=== PATIENT | male | born 1995 | race Two or more races ===

== ENCOUNTER 2019-12-28 03:47 | Emergency (ER) | payer MEDICAID, SELFPAY ==
[2019-12-28 03:56] VITALS: BP 131/71; PULSE 73; RESP 18; TEMP 36.9; O2SAT 98; BMI 28.7
--- NOTE | 2019-12-28 04:04 | ED_ITS ---
HPI - Psych General Chief Complaint: Psychiatric Symptoms <Blank Allen MD - Last Filed: 12/28/19 06:14> Stated Complaint: si <Blank Allen MD - Last Filed: 12/28/19 06:14> Time Seen by Provider: 12/28/19 03:48 <Blank Allen MD - Last Filed: 12/28/19 06:14> Source: patient <Blank Allen MD - Last Filed: 12/28/19 06:14> Mode of arrival: other (PD) <Blank Allen MD - Last Filed: 12/28/19 06:14> Limitations: no limitations <Blank Allen MD - Last Filed: 12/28/19 06:14> History of Present Illness HPI Narrative: This is a 24-year-old male who is brought in by EMS and polio completes department after he was found on a bridge and threatening to jump. Family was able to talk him down off a bridge into a car and patient stated that he was angry. He was recently evaluated at [facility] at approximately 9:30 p.m. on 12/27/2019 and on review of documentation adamantly was denying suicidal ideation at that time however was expressing that he was very stressed and feeling depressed. As per the documentation patient states that he started cutting for the 1st time 2 days ago along his bilateral forearms. Patient denies any drug use after being discharged from [facility]. <Blank Allen MD - Last Filed: 12/28/19 06:14> Related Data Allergies/Adverse Reactions: Allergies Allergy/AdvReac Type Severity Reaction Status Date / Time No Known Allergies Allergy Unverified 11/12/19 16:35 <Blank Allen MD - Last Filed: 12/28/19 06:14> Review of Systems Review of Systems: Yes all other systems are reviewed and are negative <Blakn Allen MD - Last Filed: 12/28/19 06:14> [facility] Social History Social History: Social History Advance Directives: No Advance Directives Information Provided: No <Blank Allen MD - Last Filed: 12/28/19 06:14> Physical Exam Vital Signs: Vital Signs: Vital Signs Temp Pulse Resp BP Pulse Ox 12/28/19 04:22 98.4 F 73 18 131/71 98 12/28/19 03:56 98.4 F 73 18 131/71 98 Body Mass Index 28.7 <Blank Allen MD - Last Filed: 12/28/19 06:14> Vital Signs: Vital Signs Temp Pulse Resp BP Pulse Ox 12/28/19 04:22 98.4 F 73 18 131/71 98 12/28/19 03:56 98.4 F 73 18 131/71 98 Body Mass Index 28.7 <Madhu Bright MD - Last Filed: 12/28/19 07:31> Vital Signs: Vital Signs Temp Pulse Resp BP Pulse Ox 12/28/19 04:22 98.4 F 73 18 131/71 98 12/28/19 03:56 98.4 F 73 18 131/71 98 Body Mass Index 28.7 <Tia Forrester NP - Last Filed: 12/28/19 10:10> VITAL SIGNS: Reviewed. GENERAL: Well developed, well nourished, in no acute distress. HEAD: Normocephalic/atraumatic, EYES: PERRLA, EOMI intact without pain, no nystagmus/pallor/icterus noted EARS: Ext canals without abnormality, TMs non-bulging and non-erythematous NOSE: Nares patent bilateral OROPHARYNX: no oral lesions noted, posterior pharynx clear and non-erythematous without noted tonsillar enlargement/erythema/exudates NECK: Supple, no adenopathy LUNGS: Normal breath sounds. No adventitious sounds or accessory muscle use. SpO2<98> CARDIOVASCULAR: Regular rate and rhythm without noted murmurs, no JVD or lower extremity edema. ABDOMEN: Soft, non-tender, non-distended with bowel sounds. No rigidity. No guarding. No palpable masses or hernias noted MUSCULOSKELETAL: No tenderness, deformities, or effusions noted on gross inspection. EXTREMITIES: No cyanosis, clubbing or edema, superficial lacerations to bilateral ventral forearms SKIN: Inspection of the skin reveals no rashes, ulcerations, jaundice, pallor, or petechiae. NEUROLOGIC: Alert and oriented x 4. Strength and sensation to light touch were grossly intact x 4. <Blank Allen MD - Last Filed: 12/28/19 06:14> Course Course Course Narrative: This is a 24-year-old male with history and clinical presentation consistent with progressively worsening depression and suicidal ideation. On arrival patient has been largely cooperative and has not required medical or physical restraints. On review of laboratory workup from [facility] it is unnecessary at this time to replicate these tests. Patient is otherwise medically cleared for further psychiatric evaluation. <Blank Allen MD - Last Filed: 12/28/19 06:14> patient is currently agitated ordered Haldol and ativan <Madhu Bright MD - Last Filed: 12/28/19 07:31> patient is pending a crisis evaluation. He had some agitation this morning but was able to be deescalated by nursing. Vital signs reviewed and stable. Will continue with plan of care. 1010-Seen by SWAT. Plan for dischrge home. No SI/HI. Calm and cooperative. R eviewed worrisome signs and symptoms and when to return to the emergency department. Comfortable discharge home. <Tia Forrester NP - Last Filed: 12/28/19 10:10> Reevaluation(s) Reevaluation #1: Formal Section 12 was filed here at the [facility] <Blank Allen MD - Last Filed: 12/28/19 06:14> Time: 04:30 <Blank Allen MD - Last Filed: 12/28/19 06:14> MDM - Psych Restraints Face to Face Assessment: Face to Face Assessment: Current Situation: After assessment of the patient, a review of the pertinent medical record and a discussion with nursing staff, I feel the patient requires a restrain intervention. Reaction To: [] Medical Condition: [] Behavioral State: [] Continued Need: [] <Blank Allen MD - Last Filed: 12/28/19 06:14> Discharge Plan Discharge Clinical Impression: Adjustment disorder <Blank Allen MD - Last Filed: 12/28/19 06:14> Patient Disposition: Home, Self-Care <Blank Allen MD - Last Filed: 12/28/19 06:14> Instructions: Stress (ED) <Blank Allen MD - Last Filed: 12/28/19 06:14> Referrals: Luann Luu NP [Primary Care Provider] - 2 days <Blank Allen MD - Last Filed: 12/28/19 06:14>
--- NOTE | 2019-12-28 04:16 | MHC.PIE ---
Addendum entered by Pancho Yee RN 12/28/19 04:31: E: Pt returned to phone to security at this time. Original Note: P: Refused to lock the cell phone in the locker. I:, RN, charged RN, and it security specialist talking to pt. Pt still refused to be uncooperative to care and policy. Will continue to monitor.
[2019-12-28 04:22] VITALS: BP 131/71; PULSE 73; RESP 18; TEMP 36.9; O2SAT 98
--- NOTE | 2019-12-28 04:24 | PC.NURSE ---
Pt uncooperative to care, and refused to talk to staff. will assess safety question when pt is cooperative.
--- NOTE | 2019-12-28 04:27 | PC.NURSE ---
Addendum entered by Pancho Yee RN 12/28/19 04:29: At [facility] ER, pt denies SI. Pt was at [facility] ER for PCP use and depression. Original Note: According to [facility] medical record, PATEL was negative. ETOH less than 3. Pt was discharged yesterday from [facility] ED for PCP use.
--- NOTE | 2019-12-28 04:59 | PC.NURSE ---
PT attempting to bench press weighted chair in his room. Stated that he needs to burn off steam . Chair was removed from his room for safety.
--- NOTE | 2019-12-28 06:02 | PC.NURSE ---
PT is talking on the phone with his fiance. Becoming agitated with conversation and raising his voice. PT easily redirectable at this time.
--- NOTE | 2019-12-28 07:25 | PC.NURSE ---
Report received from GERARD Kaufman- Pt agitated, angry, threatening to punch dixon. Pt declined medications as offered. MD notified of pt threats and agitation. Pt aware that he needs to remain in behavioral control, and that he needs to be evaluated by N. Security in, MD in. Pt currently in room, eating breakfast.
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
--- NOTE | 2019-12-28 08:53 | PC.NURSE ---
Care team in w pt
--- NOTE | 2019-12-28 11:05 | PC.NURSE ---
Pt given discharge instructions, then appeared ambivalent about being discharged, appearing sad, and uncertain. Pt stated he wanted to make sure that he would be able to receive medical marijuana card from PCP. Care team called- notified re: ambivalence, and medical card. In to evaluate. Pt stated that he was not suicidal at this time, but continued to state that he couldnt guarantee the future. pt asked if he wanted to stay, stated that 'this place just makes me worse.' Pt again stated that he was not suicidal today. Spoke to mother on telephone, discharged as ordered.
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
--- NOTE | 2019-12-28 13:39 | MHC.CARE ---
Called received from Pts fiscal officer. commercial loan officer updated he was discharged home from ED.
--- NOTE | 2020-01-12 02:07 | ED_ITS ---
HPI - Psych General Chief Complaint: Psychiatric Symptoms <Blank Allen MD - Last Filed: 01/12/20 02:18> Stated Complaint: si <Blank Allen MD - Last Filed: 01/12/20 02:18> Time Seen by Provider: 12/28/19 03:48 <Blank Allen MD - Last Filed: 01/12/20 02:18> Source: patient and EMS <Blank Allen MD - Last Filed: 01/12/20 02:18> Mode of arrival: EMS <Blank Allen MD - Last Filed: 01/12/20 02:18> History of Present Illness HPI Narrative: This is a 24-year-old male who is brought in by EMS and police who reports that he was found on a bridge and threatening to jump. Family was able to talk him down off of the bridge and into a car in patient stated that he was angry. He was recently evaluated at [facility] at approximately 9:30 p.m. on 12/27/2019 and on review of documentation adamantly was denying suicidal ideation at that time, however he was expressing that he was very stressed and feeling depressed. As per the documentation patient states that he started cutting for the 1st time 2 days ago along his bilateral forearms. Patient denies any drug use after being discharged from [facility]. <Blank Allen MD - Last Filed: 01/12/20 02:18> Related Data Allergies/Adverse Reactions: Allergies Allergy/AdvReac Type Severity Reaction Status Date / Time No Known Allergies Allergy Unverified 11/12/19 16:35 <Blank Allen MD - Last Filed: 01/12/20 02:18> Review of Systems Review of Systems: Pertinent positives and negatives as stated in HPI 10 point review of systems is otherwise negative. <Blank Allen MD - Last Filed: 01/12/20 02:18> PMFSH Past Medical History Source: nursing notes reviewed <Blank Allen MD - Last Filed: 01/12/20 02:18> Social History Social History: Social History Advance Directives: No Advance Directives Information Provided: No <Blank Allen MD - Last Filed: 01/12/20 02:18> Physical Exam Vital Signs: Vital Signs: Last Vital Signs Temp 98.4 F 12/28/19 04:22 Pulse 73 12/28/19 04:22 Resp 18 12/28/19 04:22 BP 131/71 12/28/19 04:22 Pulse Ox 98 12/28/19 04:22 Body Mass Index 28.7 <Blank Allen MD - Last Filed: 01/12/20 02:18> Vital Signs: Last Vital Signs Temp 98.4 F 12/28/19 04:22 Pulse 73 12/28/19 04:22 Resp 18 12/28/19 04:22 BP 131/71 12/28/19 04:22 Pulse Ox 98 12/28/19 04:22 Body Mass Index 28.7 <Tia Forrester NP - Last Filed: 01/15/20 09:32> VITAL SIGNS: Reviewed. GENERAL: Well developed, well nourished, in no acute distress. HEAD: Normocephalic/atraumatic, EYES: PERRLA, EOMI intact without pain, no nystagmus/pallor/icterus noted EARS: Ext canals without abnormality, TMs non-bulging and non-erythematous NOSE: Nares patent bilateral OROPHARYNX: no oral lesions noted, posterior pharynx clear and non-erythematous without noted tonsillar enlargement/erythema/exudates NECK: Supple, no adenopathy LUNGS: Normal breath sounds. No adventitious sounds or accessory muscle use. SpO2<98> CARDIOVASCULAR: Regular rate and rhythm without noted murmurs, no JVD or lower extremity edema. ABDOMEN: Soft, non-tender, non-distended with bowel sounds. No rigidity. No guarding. No palpable masses or hernias noted MUSCULOSKELETAL: No tenderness, deformities, or effusions noted on gross inspection. EXTREMITIES: No cyanosis, clubbing or edema. SKIN: Inspection of the skin reveals no rashes, ulcerations, jaundice, pallor, or petechiae. NEUROLOGIC: Alert and oriented x 4. Strength and sensation to light touch were grossly intact x 4. <Blank Allen MD - Last Filed: 01/12/20 02:18> Course Course Course Narrative: This is a 24-year-old male with history and clinical presentation consistent with progressively worsening depression and suicidal ideation. On arrival patient has been largely cooperative and has not required medical or physical restraints. On review of laboratory workup from [facility] it is unnecessary at this time to replicate these tests as they are within normal limits. <Blank Allen MD - Last Filed: 01/12/20 02:18> This is an addendum-see previous provider HPI and PE. Patient was seen by SWAT in the morning and plan for disposition home. I went to re-evaluate the patient and he was calm, cooperative. No SI/HI. <Tia Forrester NP - Last Filed: 01/15/20 09:32> Reevaluation(s) Reevaluation #1: Formal Section 12 was filed here at [facility]. <Blank Allen MD - Last Filed: 01/12/20 02:18> Time: 04:30 <Blank Allen MD - Last Filed: 01/12/20 02:18> Reevaluation #2: Patient signed out to Dr Bright. <Blank Allen MD - Last Filed: 01/12/20 02:18> Time: 07:00 <Blank Allen MD - Last Filed: 01/12/20 02:18> MDM - Psych Restraints Face to Face Assessment: Face to Face Assessment: Current Situation: After assessment of the patient, a review of the pertinent medical record and a discussion with nursing staff, I feel the patient requires a restrain intervention. Reaction To: [] Medical Condition: [] Behavioral State: [] Continued Need: [] <Blank Allen MD - Last Filed: 01/12/20 02:18> Discharge Plan Discharge Clinical Impression: Adjustment disorder <Blank Allen MD - Last Filed: 01/12/20 02:18> Patient Disposition: Home, Self-Care <Blank Allen MD - Last Filed: 01/12/20 02:18> Instructions: Stress (ED) <Blank Allen MD - Last Filed: 01/12/20 02:18> Referrals: Luann Luu NP [Primary Care Provider] - 2 days <Blank Allen MD - Last Filed: 01/12/20 02:18> Interventions: ED Discharge Assessment Last Done: 12/28/19 10:16 <Blank Allen MD - Last Filed: 01/12/20 02:18> Discharge Date/Time: 12/28/19 11:18 <Blank Allen MD - Last Filed: 01/12/20 02:18>
== END 2019-12-28 11:18 | disposition home or self-care (01) ==
PROVIDERS: Emergency Provider Student in an Organized Health Care Education/Training Program; PCP Nurse Practitioner Family
DX: F33.1 Major depressive disorder, recurrent, moderate (principal); R45.851 Suicidal ideations
CPT/HCPCS: 96372; 99284; 99285; J1200; J2060

== ENCOUNTER 2020-08-22 23:40 | Emergency (ER) | payer MEDICAID, SELFPAY ==
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
[2020-08-23 00:40] VITALS: BP 140/80; PULSE 85; RESP 18; TEMP 36.7; O2SAT 100; BMI 30.1
[2020-08-23 01:48] LABS: Basophils Absolute Auto 0.1 X10*3/uL (0.0-0.2); Basophils Percent Auto 0.3 % (0-2); Hematocrit 44.6 % (42-52); Imm Gran Abs Auto 0.12 X10*3/uL (0.00-0.03); Imm Gran Pct Auto 0.6 % (0.0-0.4); Lymphocytes Absolute Auto 1.7 X10*3/uL (1.2-4.9); Lymphocytes Percent Auto 8.9 % (20-40); MANUAL DIFF FLAG SCAN; Mean Corpuscular HGB Conc 33.6 g/dl (31.0-36.0); Mean Corpuscular Hemoglobin 30.7 pg (27.0-33.0); Mean Corpuscular Volume 91.4 fL (80-98); Mean Platelet Volume 11.3 fL (9.4-12.4); Monocytes Absolute Auto 1.6 X10*3/uL (0.1-1.2); Monocytes Percent Auto 8.6 % (2-11); Neutrophils Absolute Auto 15.1 X10*3/uL (2.0-8.3); Neutrophils Percent Auto 81.6 % (45-73); Platelet Count 212 X10*3/uL (160-400); Red Blood Count 4.88 X10*6/uL (4.60-5.80); Red Cell Distribution Width 12.6 % (11.0-16.0); SCAN SMEAR FLAG 1; White Blood Count 18.6 X10*3/uL (4.8-10.8)
[2020-08-23 02:05] LABS: Ethanol < 10 mg/dL
[2020-08-23] MEDS: HYDROmorphone HCl 0.5 MG/0.5 ML SYRINGE IVPUSH (02:05)
[2020-08-23] MEDS: 0.9 % Sodium Chloride 500 ML 999 ML IV (02:07)
[2020-08-23 02:08] LABS: Alanine Aminotransferase 25 U/L (0-40); Albumin Level 4.5 g/dL (3.5-5.0); Alkaline Phosphatase 73 U/L (39-117); Anion Gap 15 (12-20); Aspartate Amino Transferase 32 U/L (5-37); Bilirubin Direct < 0.2 mg/dL (0.0-0.5); Bilirubin Total 0.2 mg/dL (0.0-1.0); Blood Urea Nitrogen 14 mg/dL (9-16); Calcium 9.7 mg/dL (8.4-10.2); Carbon Dioxide 26 mmol/L (22-29); Chloride 106 mmol/L (96-108); Creatinine Clr Calc Pharmacy 127.6; Estimated Glomerular Filt Rate > 60; Glucose Random 95 mg/dL (60-115); Potassium 4.6 mmol/L (3.3-5.1); Sodium 142 mmol/L (135-145); Total Protein 7.7 g/dL (6.5-8.0)
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
[2020-08-23] MEDS: iohexoL 350 MG/ML 100 ML INFUS..BTL 85 ML IV (02:14)
[2020-08-23 03:12] LABS: SLIDE REVIEW VERIFIED
[2020-08-23 03:16] VITALS: BP 132/61; PULSE 76; RESP 18; O2SAT 100
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
[2020-08-23] MEDS: Cyclobenzaprine HCl 10 MG TABLET PO (04:03)
[2020-08-23] MEDS: oxyCODONE HCl Immed Release 5 MG TABLET PO (04:03)
== END 2020-08-23 04:25 | disposition home or self-care (01) ==
PROVIDERS: Emergency Provider Emergency Medicine Emergency Medical Services
DX: S20.219A Contusion of unspecified front wall of thorax, initial encounter (principal); S09.90XA Unspecified injury of head, initial encounter; S30.810A Abrasion of lower back and pelvis, initial encounter; S20.419A Abrasion of unspecified back wall of thorax, initial encounter; S80.212A Abrasion, left knee, initial encounter; S80.211A Abrasion, right knee, initial encounter; V28.4XXA Motorcycle driver injured in noncollision transport accident in traffic accident, initial encounter; Y93.89 Activity, other specified; Y92.9 Unspecified place or not applicable; Y99.9 Unspecified external cause status
CPT/HCPCS: 36415; 70450; 71260; 72125; 73060; 73562; 74177; 80048; 80076; 82077; 85025; 96361; 96374; 99284; 99285; J1170; Q9967

== ENCOUNTER 2020-10-28 02:45 | Emergency (ER) | payer MEDICAID, SELFPAY ==
[2020-10-28 03:00] VITALS: BP 135/85; PULSE 106; RESP 18; TEMP 36.9; O2SAT 97; BMI 28.5
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
[2020-10-28 03:49] LABS: Ethanol < 10 mg/dL
--- NOTE | 2020-10-28 04:52 | PC.NURSE ---
PT REQUESTING TO BE D/C, SPOKE W/THIS RN & MD. PT AMBULATES INDEPENDENTLY, WALKS W/STEADY GAIT. PER MD PT IS APPROPRIATE FOR D/C AT THIS TIME
== END 2020-10-28 05:21 | disposition home or self-care (01) ==
PROVIDERS: Emergency Provider Emergency Medicine
DX: F10.129 Alcohol abuse with intoxication, unspecified (principal); Y90.0 Blood alcohol level of less than 20 mg/100 ml; F17.200 Nicotine dependence, unspecified, uncomplicated; Z71.6 Tobacco abuse counseling; Z79.899 Other long term (current) drug therapy
CPT/HCPCS: 36415; 82077; 99283

== ENCOUNTER 2021-06-18 02:30 | Emergency (ER) | payer MEDICAID, SELFPAY ==
[2021-06-18 02:39] VITALS: BMI 27.3
[2021-06-18 02:51] VITALS: BP 147/86; PULSE 75; RESP 17; TEMP 37; O2SAT 98
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
[2021-06-18 03:25] LABS: COVID-19 Test Negative (Negative)
[2021-06-18 05:43] LABS: Amphetamine Screen Urine Not Detected (Not Detect); Barbiturates, Urine Not Detected (Not Detect); Benzodiazepines Screen Urine Not Detected (Not Detect); Cannabinoid Screen Urine Not Detected (Not Detect); Cocaine Screen Urine Not Detected (Not Detect); Fentanyl, urine Not Detected (Not Detect); Opiate Screen Urine Not Detected (Not Detect); Phencyclidine Screen Urine POSITIVE (Not Detect)
--- NOTE | 2021-06-18 06:17 | MHC.MBSS ---
Patient stayed awake whole night, patient is now alert and oriented x 4, coherent, behavior appropriate, denied SI/HI/AVH, awaiting to see population health coach, will continue to monitor.
--- NOTE | 2021-06-18 07:37 | PC.NURSE ---
patient appears to remain asleep at present respirations are even and unlabored patient appears in no distress
--- NOTE | 2021-06-18 09:15 | MHC.RECOVSUP ---
Recovery Support note: Patient is a 26 year old [place] speaking male who [place] [facility] using PCP and going to his mother's house. This engineering technical writer met with patient to discuss substance use and recovery supports. Patient reports PCP use but states he is not interested in talking about it and that he wants to go home. Patient reports he feels safe to discharge and that he will take some resources to look over later. Discussed case with ED provider. Resources given to RN to provide patient upon discharge.
== END 2021-06-18 10:02 | disposition home or self-care (01) ==
PROVIDERS: Emergency Provider Emergency Medicine Emergency Medical Services
DX: F19.19 Other psychoactive substance abuse with unspecified psychoactive substance-induced disorder (principal); F17.200 Nicotine dependence, unspecified, uncomplicated; Z20.822 Contact with and (suspected) exposure to COVID-19; Z71.6 Tobacco abuse counseling; Z79.899 Other long term (current) drug therapy
CPT/HCPCS: 80307; 87635; 99284

== ENCOUNTER 2022-07-06 04:03 | Emergency (ER) | payer MEDICAID, SELFPAY ==
[2022-07-06 04:04] VITALS: BP 137/62; PULSE 97; RESP 18; TEMP 36.6; O2SAT 98; BMI 25.1
--- NOTE | 2022-07-06 04:17 | ED_ITS ---
HPI - Ear Problem General Chief complaint: Ear Problems Stated complaint: Right ear pain was bleeding Time Seen by Provider: 07/06/22 04:12 Source: patient Mode of arrival: ambulatory Limitations: no limitations History of Present Illness HPI Narrative: Patient comes to the emergency room complaining of right-sided ear pain for approximately 5 days. Patient states that 5-6 days ago he was cleaning his ears with Q-tips, scratch his ear canal, tried rinsing it out with hydrogen peroxide. No throat pain Related Data Previous Rx's Medication Instructions Recorded cyclobenzaprine 10 mg tablet 10 mg PO TID PRN pain #14 tabs 08/23/20 ibuprofen 400 mg tablet 400 mg PO Q6H PRN pain #20 tabs 08/23/20 amoxicillin 500 mg-potassium 1 tab PO BID #19 tabs 07/06/22 clavulanate 125 mg tablet (Augmentin) ketorolac 10 mg tablet 10 mg PO TID PRN pain #7 tabs 07/06/22 Allergies Allergy/AdvReac Type Severity Reaction Status Date / Time No Known Allergies Allergy Unverified 11/12/19 16:35 Review of Systems Review of Systems: Constitutional : No Weight loss, No Fever, No Chills, No Night Sweats, No Fatigue, No Malaise ENT/Mouth : No Hearing loss, complaining of right-sided Ear Pain, No Nasal Congestion, No Sinus Pain, No Hoarseness, No sore throat, No Rhinorrhea, No Swallowing Difficulty Eyes: No Eye Pain, No Swelling, No Redness, No Foreign Body, No Discharge, No Vision Changes Cardiovascular : No Chest Pain, No SOB, No Dyspnea on Exertion, No Orthopnea, No Edema, No Palpitations Respiratory : No Cough, No Sputum, No Wheezing, No Smoke Exposure, No Dyspnea Gastrointestinal : No Nausea, No Vomiting, No Diarrhea, No Constipation, No abdominal Pain, No Hematochezia, No Melena Genitourinary : no irregular bleeding, No Dysuria, No Urinary Frequency, No Hematuria, No Urinary Incontinence, No Urgency, No Flank Pain, No Urinary Flow Changes, No Hesitancy Musculoskeletal : No joint pain, No Myalgias, No Joint Swelling Skin : No Skin Lesions, No rash Neuro : No Weakness, No Numbness, No Paresthesias, No Loss of Consciousness, No Dizziness, No Headache Psych : No Anxiety/Panic, No Depression, No SI/HI/AH/VH, No Social Issues, Heme/Lymph: No Bruising, No Bleeding,No Lymphadenopathy Endocrine : No Polyuria, No Polydipsia, No Temperature Intolerance [facility] Past Medical History Medical History No known health problems Social History Social History Alcohol intake: current Alcohol intake frequency: holidays/special occasions only Patient Tobacco Use Status: Current everyday Tobacco user Substance Use Type: Marijuana Physical Exam Vital Signs: Vital Signs: Last Vital Signs Temp 97.8 F 07/06/22 04:04 Pulse 97 07/06/22 04:04 Resp 18 07/06/22 04:04 BP 137/62 07/06/22 04:04 Pulse Ox 98 07/06/22 04:04 O2 Del Method Room Air 07/06/22 04:04 BMI result Body Mass Index 25.1 Const: Other: Appearance: Alert. Oriented X3. No acute distress. Eyes: Pupils equal, round and reactive to light. ENT: Pharynx normal. There are scratches in the ear canal on the left, scant blood from the scratches, tympanic membrane within normal limits. Right ear canal is erythematous, swollen, no blood. Both tympanic membranes within normal limits. No pain in the mastoid bones bilaterally Neck: Normal inspection. Neck supple. No lymph nodes noted. No crepitus CVS: Normal heart rate and rhythm. Pulses normal. Normal S1 and S2 Respiratory: No respiratory distress. Breath sounds normal. No Wheezing. No rales Abdomen: Soft and nontender. No rigidity. No distention. Skin: Skin warm and dry. Normal skin color. Normal skin turgor. Extremities: No lower extremity edema. No Lacerations. No Rash Neuro: Oriented X 3. No motor deficit. No sensory deficit. Moving all extremities. No slurred speech. CN 2 through 12 grossly intact Psych: calm, cooperative, normal affect Medical Decision Making Medical Decision Making MDM Narrative: -patient has otitis media of the right ear. -discussed with the patient not to put anything in his ear, not to resume with peroxide. -patient was given the 1st dose of Augmentin in the emergency room and an injection of ketorolac for pain Discharge Plan Discharge Clinical Impression: Otitis media Patient Disposition: Home, Self-Care Instructions: Ear Infection (ED) Additional Instructions: Please to not put anything inside your ears, do not try to rinse them out. Only take your antibiotics Please follow-up with your primary care physician tomorrow. If you have any worsening or new symptoms, please return to the emergency room or call 911 Prescriptions: New amoxicillin-pot clavulanate [Augmentin] 500-125 mg tablet 1 tab PO BID Qty: 19 0RF ketorolac 10 mg tablet 10 mg PO TID PRN (Reason: pain) Qty: 7 0RF No Action ibuprofen 400 mg tablet 400 mg PO Q6H PRN (Reason: pain) Qty: 20 0RF cyclobenzaprine 10 mg tablet 10 mg PO TID PRN (Reason: pain) Qty: 14 0RF
--- NOTE | 2022-07-06 04:29 | PC.NURSE ---
pt c/o R ear pain, redness and swelling visible 10/10 pain and tenderness to external ear pt's girlfriend at bedside aox4 no apparent distress
[2022-07-06] MEDS: Ketorolac Tromethamine 60 MG/2 ML VIAL IM (04:30)
[2022-07-06] MEDS: Amoxicillin/Potassium Clav 875 MG TABLET PO (04:30)
[2022-07-06 04:32] VITALS: BP 115/72; PULSE 66; RESP 13; TEMP 36.7; O2SAT 99
--- NOTE | 2022-07-06 04:41 | PC.NURSE ---
discharge instructions given and explained to pt no apparent distress ambulates safely/independently
== END 2022-07-06 04:40 | disposition home or self-care (01) ==
PROVIDERS: Emergency Provider Emergency Medicine
DX: H66.91 Otitis media, unspecified, right ear (principal); H92.01 Otalgia, right ear
CPT/HCPCS: 96372; 99284; J1885

== ENCOUNTER 2022-12-14 23:34 | Emergency (ER) | payer MEDICAID, SELFPAY ==
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
[2022-12-15 00:13] VITALS: BP 118/78; PULSE 99; O2SAT 98; BMI 28.6
[2022-12-15 00:43] VITALS: BP 154/52; PULSE 71; RESP 16; O2SAT 98
[2022-12-15] MEDS: Acetaminophen 325 MG TABLET 975 MG PO (01:27)
== END 2022-12-15 05:13 | disposition left against medical advice (07) ==
PROVIDERS: Emergency Provider Emergency Medicine
DX: Z04.1 Encounter for examination and observation following transport accident (principal); M25.562 Pain in left knee; R06.02 Shortness of breath
CPT/HCPCS: 73564; 99283; 99284

== ENCOUNTER 2023-01-30 12:51 | Emergency (ER) | payer MEDICAID, SELFPAY ==
[2023-01-30 13:02] VITALS: BP 131/84; BP 136/94; PULSE 71; PULSE 74; RESP 16; TEMP 36.6; O2SAT 96; O2SAT 99; BMI 23.4
--- NOTE | 2023-01-30 13:06 | PC.NURSE ---
Pt reports he has no complaints, states he doesnt need to be here. This RN explained that he needs to be checked out first by MD. Pt agreeable to this plan. Pt is alert and oriented, verbalizes understanding that he is in the hospital, knows the date and his birthday. Pt is resting on stretcher, respirations even and unlabored, occasionally looking around appearing to be disoriented but is easily redirectablle
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
== END 2023-01-30 13:43 | disposition home or self-care (01) ==
PROVIDERS: Emergency Provider Emergency Medicine Emergency Medical Services
DX: F12.90 Cannabis use, unspecified, uncomplicated (principal); F17.200 Nicotine dependence, unspecified, uncomplicated; Z79.899 Other long term (current) drug therapy
CPT/HCPCS: 99282; 99284

== ENCOUNTER 2023-03-17 11:21 | Emergency (ER) | payer MEDICAID, SELFPAY ==
--- NOTE | 2023-03-17 11:31 | ED.DENTAL ---
HPI - Dental/Oral General Chief complaint: Dental/Oral Stated complaint: Mouth pain - wisdom teeth removed Time Seen by Provider: 03/17/23 11:37 Source: patient Mode of arrival: ambulatory Limitations: no limitations History of Present Illness HPI Narrative: Patient is a 28-year-old male who presents emergency department for evaluation of right lower molar pain x 2-3 days. Has trialed pain gel but only relieve pain for 30 minutes. Pain does not radiate. Dneies fevers, chills, nausea, vomiting. Reports having upper wisdom teeth removed approximately 2-3 years ago and was advised that he needed the lower ones removed, however they were not, reason unknown. Teeth map: 1. erythematous gingiva and swelling Related Data Previous Rx's Medication Instructions Recorded cyclobenzaprine 10 mg tablet 10 mg PO TID PRN pain #14 tabs 08/23/20 ibuprofen 400 mg tablet 400 mg PO Q6H PRN pain #20 tabs 08/23/20 amoxicillin 500 mg-potassium 1 tab PO BID #19 tabs 07/06/22 clavulanate 125 mg tablet (Augmentin) ketorolac 10 mg tablet 10 mg PO TID PRN pain #7 tabs 07/06/22 amoxicillin 875 mg-potassium 1 tab PO BID #14 tabs 03/17/23 clavulanate 125 mg tablet chlorhexidine gluconate 0.12 % 15 ml buccal BID #473 mL 03/17/23 mouthwash ibuprofen 600 mg tablet 600 mg PO Q8H PRN pain #30 tabs 03/17/23 Allergies Allergy/AdvReac Type Severity Reaction Status Date / Time No Known Allergies Allergy Unverified 11/12/19 16:35 Review of Systems Review of Systems: Yes all other systems are reviewed and are negative PMFSH Past Medical History Attestation statement: The following information was validated with the patient. Source: old records reviewed Onset Date is defined in the Problem List Problems that require an onset date and time if occurred within 24 hrs of arrival to the ED Aortic Dissection and Rupture; Neurologic impairment; Cardiopulmonary Arrest; Endotracheal Intubation; Insertion or Replacement of Mechanical Circulatory Assist Device Medical History No known health problems Social History Social History Alcohol intake: current Alcohol intake frequency: holidays/special occasions only Patient Tobacco Use Status: Current everyday Tobacco user Substance Use Type: Marijuana Physical Exam Vital Signs: Appearance: Alert. Oriented X3. No acute distress. Head: Normal external exam. Normocephalic. Atraumatic. Eyes: PERRLA. EOMI. Conjunctiva and sclera normal. Eyelids normal. ENT: EAC normal. TM's Normal. Pharynx normal. Uvula midline. Moist mucous membranes.? ?No trismus noted.? No drooling noted.? No muffled voice noted. Dentition:? Patient with poor dentition throughout with multiple old fractured teeth with multiple dental caries.? Gingival erythema of the right lower..? No fluctuance.? Not consistent with peritonsillar abscess. Not consistent with dental abscess.? No salivary duct obstruction noted. Neck: Normal inspection. Neck supple. FROM. No adenopathy. Thyroid Normal. No meningeal signs. No neck mass noted.? Trachea midline. CVS: Normal heart rate and rhythm. Heart sound normal. No murmurs noted. Pulses normal throughout. Respiratory: No respiratory distress. Painless inspiration. Breath sounds normal. No wheezes/rales/rhonchi noted. Chest nontender. ?No accessory muscle usage noted or decreased air movement noted. Back:? Full range of motion noted. Skin: Skin warm and dry.? Normal skin color.? Normal skin turgor. No rashes/lesions/lacerations noted. Extremities: Extremities exhibit normal range of motion.? Extremities nontender. Neuro: Oriented X 3.? No motor deficit.? No sensory deficit.? Reflexes normal. Course Course Course Narrative: This is an RME: Additional HPI, ROS, PE not included below will be deferred to primary provider. Patient is a 28-year-old male who presents emergency department for evaluation of right lower molar pain x 2-3 days. Has trialed pain gel but only relieve pain for 30 minutes. Pain does not radiate. Dneies fevers, chills, nausea, vomiting. Reports having upper wisdom teeth removed approximately 2-3 years ago and was advised that he needed the lower ones removed, however they were not, reason unknown. Medical Decision Making Medical Decision Making MDM Narrative: Patient is a 28-year-old male who presents emergency department for evaluation of dental pain as per HPI. He does have some localized erythema and swelling with no areas of fluctuance to suggest an abscess. No evidence of peritonsillar retropharyngeal abscess. Pain is nonradiating, he is nontoxic in appearance. Does not appear consistent with Fox's angina. Patient was advised will send prescription for Augmentin to cover dental infection in addition to ibuprofen and chlorhexidine mouthwash, he will ultimately require evaluation from a dental provider, he was advised to contact local dentist in addition to [facility] dental clinic tomorrow so that he may obtain follow-up care. Discussed worrisome signs and symptoms that would warrant re-evaluation in the emergency department. All questions answered. Stable for discharge. Differential Diagnosis Differential Diagnoses: The differential diagnosis associated with the presentation includes (As noted above) Admission/Observation Consideration of admission/observation: Escalation of care including admission/observation considered (As noted above) Tests considered The following testing was considered but not selected: CT deferred, low suspicion for abscess Prescription Management I considered prescription management with: Pain Medication and Antibiotic Discharge Plan Discharge Clinical Impression: Dental infection Patient Disposition: Home, Self-Care Additional Instructions: You can take ibuprofen 200 mg, 3 tablets (600mg) every 6-8 hours as needed for pain, in addition to Tylenol 500 mg, 2 tablets (1,000mg) every 4-6 hours as needed for pain, but not to exceed 3 doses daily (3,000mg).? Complete the entire course of antibiotics as prescribed. Use the mouthwash as instructed twice a day. You will need to have follow-up care with a dentist, you may consider seeking care at [facility] where they have dental services. I recommend that you begin contacting dental providers tomorrow. Prescriptions: New chlorhexidine gluconate 0.12 % mouthwash 15 ml buccal BID Qty: 473 0RF ibuprofen 600 mg tablet 600 mg PO Q8H PRN (Reason: pain) Qty: 30 0RF amoxicillin-pot clavulanate 875-125 mg tablet 1 tab PO BID Qty: 14 0RF No Action ibuprofen 400 mg tablet 400 mg PO Q6H PRN (Reason: pain) Qty: 20 0RF cyclobenzaprine 10 mg tablet 10 mg PO TID PRN (Reason: pain) Qty: 14 0RF amoxicillin-pot clavulanate [Augmentin] 500-125 mg tablet 1 tab PO BID Qty: 19 0RF ketorolac 10 mg tablet 10 mg PO TID PRN (Reason: pain) Qty: 7 0RF Referrals: Physician,Unknown J [Primary Care Provider] -
[2023-03-17 11:32] VITALS: BP 135/88; PULSE 78; RESP 18; TEMP 36.4; O2SAT 98; BMI 28.3
== END 2023-03-17 12:10 | disposition home or self-care (01) ==
LOC: HO.ED 12:01
PROVIDERS: Emergency Provider Emergency Medicine
DX: K04.7 Periapical abscess without sinus (principal)
CPT/HCPCS: 99282; 99283

== ENCOUNTER 2023-11-20 17:53 | Emergency (ER) | payer MEDICAID, SELFPAY ==
--- NOTE | ~2023-11-20 | XR_ITS ---
EXAMINATION: XR SHOULDER, LEFT CLINICAL INFORMATION: Pain, old injury COMPARISON: None available. TECHNIQUE: AP external rotation, Grashey, scapular Y, and axillary views of the left shoulder. FINDINGS: The bones and soft tissues are normal. No fracture. Glenohumeral and acromioclavicular alignment is anatomic with normal joint space. No abnormal soft tissue calcifications. XR/XR shoulder LT min 2V IMPRESSION: Normal left shoulder. Electronically signed by: Dell Jaimes DO 11/20/2023 10:01 PM EDT
--- NOTE | ~2023-11-20 | XR_ITS ---
EXAMINATION: XR SHOULDER, RIGHT CLINICAL INFORMATION: Pain, old injury COMPARISON: None available. TECHNIQUE: AP external rotation, Grashey, scapular Y, and axillary views of the right shoulder. FINDINGS: The bones and soft tissues are normal. No fracture. Glenohumeral and acromioclavicular alignment is anatomic with normal joint space. No abnormal soft tissue calcifications. XR/XR shoulder RT min 2V IMPRESSION: Normal right shoulder. Electronically signed by: Dell Jaimes DO 11/20/2023 10:03 PM EDT
--- NOTE | ~2023-11-20 | XR_ITS ---
EXAMINATION: XR KNEE, RIGHT CLINICAL INFORMATION: Pain for 5 months COMPARISON: None available. TECHNIQUE: Four views of the right knee. FINDINGS: No fracture or joint effusion. Alignment is anatomic. Joint spaces are maintained. No abnormal soft tissue calcification. XR/XR knee RT 4V IMPRESSION: Normal right knee. Electronically signed by: Dell Jaimes DO 11/20/2023 10:04 PM EDT
--- NOTE | 2023-11-20 18:38 | ED_ITS ---
HPI - Fall General Stated Complaint: ?RT knee meniscal tear Related Data Previous Rx's ?Medication ?Instructions ?Recorded cyclobenzaprine 10 mg tablet 10 mg PO TID PRN pain #14 tabs 08/23/20 ibuprofen 400 mg tablet 400 mg PO Q6H PRN pain #20 tabs 08/23/20 amoxicillin 500 mg-potassium 1 tab PO BID #19 tabs 07/06/22 clavulanate 125 mg tablet (Augmentin) ketorolac 10 mg tablet 10 mg PO TID PRN pain #7 tabs 07/06/22 amoxicillin 875 mg-potassium 1 tab PO BID #14 tabs 03/17/23 clavulanate 125 mg tablet chlorhexidine gluconate 0.12 % 15 ml buccal BID #473 mL 03/17/23 mouthwash ibuprofen 600 mg tablet 600 mg PO Q8H PRN pain #30 tabs 03/17/23 Allergies Allergy/AdvReac Type Severity Reaction Status Date / Time No Known Allergies Allergy Unverified 11/12/19 16:35 PMFSH Past Medical History Medical History No known health problems Social History Social History Alcohol intake: current Alcohol intake frequency: holidays/special occasions only Patient Tobacco Use Status: Current everyday Tobacco user Substance Use Type: Marijuana Course Course Course Narrative: This is a Rapid Medical Exam performed in triage by Mayi Pearce PA-C. Full HPI, ROS and PE to be performed by primary ED provider. 28 yo M presenting to the ED c/o PE: Plan: Discharge Plan Discharge Prescriptions: No Action ibuprofen 400 mg tablet 400 mg PO Q6H PRN (Reason: pain) Qty: 20 0RF cyclobenzaprine 10 mg tablet 10 mg PO TID PRN (Reason: pain) Qty: 14 0RF amoxicillin-pot clavulanate [Augmentin] 500-125 mg tablet 1 tab PO BID Qty: 19 0RF ketorolac 10 mg tablet 10 mg PO TID PRN (Reason: pain) Qty: 7 0RF chlorhexidine gluconate 0.12 % mouthwash 15 ml buccal BID Qty: 473 0RF ibuprofen 600 mg tablet 600 mg PO Q8H PRN (Reason: pain) Qty: 30 0RF amoxicillin-pot clavulanate 875-125 mg tablet 1 tab PO BID Qty: 14 0RF Print Language: Latvian
[2023-11-20 19:06] VITALS: BP 127/79; PULSE 62; RESP 14; TEMP 36.6; O2SAT 100; BMI 26.6
--- NOTE | 2023-11-20 19:06 | ED_ITS ---
HPI - Extremity Injury (Lower) General Chief Complaint: Extremity Injury, Lower Stated Complaint: ?RT knee meniscal tear Time Seen by Provider: 11/20/23 22:26 Source: patient Mode of arrival: ambulatory Limitations: no limitations History of Present Illness ED Provider: Dr. Bright HPI Narrative: patient is a 28yo male with prior history of trauma and coma, chest tube who presents after getting out of assisted complaining of umbilical hernia, shoulder pain, shoulder clicking and possible torn meniscus of right knee Related Data Previous Rx's ?Medication ?Instructions ?Recorded cyclobenzaprine 10 mg tablet 10 mg PO TID PRN pain #14 tabs 08/23/20 ibuprofen 400 mg tablet 400 mg PO Q6H PRN pain #20 tabs 08/23/20 amoxicillin 500 mg-potassium 1 tab PO BID #19 tabs 07/06/22 clavulanate 125 mg tablet (Augmentin) ketorolac 10 mg tablet 10 mg PO TID PRN pain #7 tabs 07/06/22 amoxicillin 875 mg-potassium 1 tab PO BID #14 tabs 03/17/23 clavulanate 125 mg tablet chlorhexidine gluconate 0.12 % 15 ml buccal BID #473 mL 03/17/23 mouthwash ibuprofen 600 mg tablet 600 mg PO Q8H PRN pain #30 tabs 03/17/23 Allergies Allergy/AdvReac Type Severity Reaction Status Date / Time No Known Allergies Allergy Verified 11/20/23 19:10 Review of Systems 2 Review of Systems: Yes all other systems are reviewed and are negative Neurologic: Denies Sensory deficit (Neuro) PMFSH Past Medical History Medical History No known health problems Social History Social History Alcohol intake: current Alcohol intake frequency: holidays/special occasions only Patient Tobacco Use Status: Current everyday Tobacco user Substance Use Type: Marijuana Advance Directives: No Advance Directives Information Provided: No Do you have a plan to hurt others: No Plan Physical Exam 2 Vital Signs: Vital Signs: Last Vital Signs Temp 97.8 F 11/20/23 22:21 Pulse 59 11/20/23 22:21 Resp 16 11/20/23 22:21 BP 113/64 11/20/23 22:21 Pulse Ox 99 09/25/24 22:21 O2 Del Method Room Air 11/20/23 22:21 BMI result Body Mass Index 26.6 Const: General: healthy appearing Nutritional Appearance: average body habitus Orientation/consciousness: oriented to person and patient oriented x3 Limitations: no limitations HEENT: Head: Yes normal to inspection Ears: external ears normal General nose exam: Normal external nose present Mouth: Normal oral and palatal mucosa present and oropharynx normal Throat: Yes posterior oropharynx normal Eyes: General: appearance normal, both eyes and all related structures Neck: Other: supple Neck: Yes normal visual inspection Chest: Chest palpation & inspection: normal inspection of the chest Resp: Auscultation: clear to auscultation bilaterally Cardio: Jugular venous distension: no JVD Rate: regular rate Rhythm: r egular rhythm Heart sounds: S1 normal heart sound present and S2 normal heart sound present GI: Other: small umbilical hernia easily reduced Palpation (GI): Soft to palpation, nontender and No hepatosplenomegaly present Auscultation: normal bowel sounds : General: Yes no CVA tenderness Back/Spine/Pelvis: Back: no CVA tenderness Skin: General skin exam: no rashes or lesions noted Neuro: General: oriented to person and patient oriented x3 Cranial nerves: Yes CN's II-XII intact bilaterally Motor exam (neuro): 5/5 motor strength present throughout Sensory Exam: No Sensory deficit (Neuro) Extrem: Other: right shoulder clicking but full range of motion, left shoulder FROM, knee FROM, no laxity no effusion. Psych: Appearance: grossly normal Course Course Course Narrative: This is a Rapid Medical Exam performed in triage by Mayi Pearce PA-C. Full HPI, ROS and PE to be performed by primary ED provider. 28yo M presenting to the ED c/o R knee pain x5 months s/p sports injury. Pt concerned he has a torn meniscus. Reports knee is locking on him. has been taking Motrin for pain w/o relief. Also reports umbilical hernia, painful when he workouts. Patient also reports acute on chronic bilateral shoulder pain. No reported injury. States he was just incarcerated, got out 4 days ago and has not seen a doctor in years. PE: R knee w/o deformity. +mild ttp. NV intact distally. + umbilical hernia on exam non-reducible & mildly ttp Plan: XRs, labs Reevaluation(s) Reevaluation #1: patient with a lot of different complaints nothing acutely wrong, has some left shoulder ligament laxity, umbilical hernia not incarcerated, and right knee chronic pain. Will refer to ortho and surgery Time: 22:59 Medical Decision Making Differential Diagnosis Differential Diagnoses: The differential diagnosis associated with the presentation includes (torn rotator cuff, shoulder dislocation, internal derangement of knee, umbilcal hernia) Lab Data 11/20/23 19:39 11/20/23 19:39 Labs: Lab Results 11/20/23 Range/Units 19:39 WBC 10.0 (4.8-10.8) X10*3/uL RBC 5.12 (4.60-5.80) X10*6/uL Hgb 15.6 (14.0-18.0) g/dl Hct 46.8 (42.0-52.0) % MCV 91.4 (80.0-98.0) fL MCH 30.5 (27.0-33.0) pg MCHC 33.3 (31.0-36.0) g/dl RDW 12.9 (11.0-16.0) % Plt Count 229 (160-400) X10*3/uL MPV 11.2 (9.4-12.4) fL Immature Gran % (Auto) 0.3 (0.0-0.4) % Neut % (Auto) 63.4 (45-73) % Lymph % (Auto) 26.9 (20-40) % Toombs % (Auto) 8.4 (2-11) % Eos % (Auto) 0.4 (0-4) % Baso % (Auto) 0.6 (0-2) % Lymph # (Auto) 2.7 (1.2-4.9) X10*3/uL Toombs # (Auto) 0.8 (0.1-1.2) X10*3/uL Eos # (Auto) 0.0 (0.0-0.4) X10*3/uL Baso # (Auto) 0.1 (0.0-0.2) X10*3/uL Abs Immat Gran (auto) 0.03 (0.00-0.03) X10*3/uL Absolute Neuts (auto) 6.4 (2.0-8.3) x10*3/uL Absolute Nucleated RBC 0.000 (0.0-0.012) X10*3/uL Nucleated RBC % (auto) 0.0 (0.0-0.2) /100WBC Sodium 146 H (135-145) mmol/L Potassium 3.8 (3.3-5.1) mmol/L Chloride 107 (96-108) mmol/L Carbon Dioxide 28 (22-29) mmol/L Anion Gap 15 (12-20) BUN 15 (9-16) mg/dL Creatinine 1.00 (0.5-1.4) mg/dL Estim Creat Clear Calc 108.3 Estimated GFR > 60 Random Glucose 86 (60-115) mg/dL Lactic Acid 1.0 (0.5-2.0) mmol/L Calcium 9.7 (8.4-10.2) mg/dL Total Bilirubin 0.3 (0.0-1.0) mg/dL Direct Bilirubin 0.1 (0.0-0.5) mg/dL AST 16 (5-37) U/L ALT 15 (0-40) U/L Alkaline Phosphatase 99 (39-117) U/L Total Protein 7.8 (6.5-8.0) g/dL Albumin 4.6 (3.5-5.0) g/dL Lipase 18 (8-78) U/L Independent Interpretation I performed an independent interpretation of an: Plain X-Ray (shoulders: normal knee: normal) Independent Historian Clinical information obtained from an independent historian. History obtained from or confirmed by: Friend Tests considered The following testing was considered but not selected: CT of abd considered but no evidence of incarceration Social Determinants Patient?s care significantly limited by Social Determinants of Health including: Low income Discharge Plan Discharge Clinical Impression: Ligamentous laxity of left shoulder, Internal derangement of knee, Hernia, umbilical Patient Disposition: Home, Self-Care Instructions: Umbilical Hernia (ED) Prescriptions: No Action ibuprofen 400 mg tablet 400 mg PO Q6H PRN (Reason: pain) Qty: 20 0RF cyclobenzaprine 10 mg tablet 10 mg PO TID PRN (Reason: pain) Qty: 14 0RF amoxicillin-pot clavulanate [Augmentin] 500-125 mg tablet 1 tab PO BID Qty: 19 0RF ketorolac 10 mg tablet 10 mg PO TID PRN (Reason: pain) Qty: 7 0RF chlorhexidine gluconate 0.12 % mouthwash 15 ml buccal BID Qty: 473 0RF ibuprofen 600 mg tablet 600 mg PO Q8H PRN (Reason: pain) Qty: 30 0RF amoxicillin-pot clavulanate 875-125 mg tablet 1 tab PO BID Qty: 14 0RF Referrals: [facility] [place] Surgeons [Provider Group] - 1 week Rod Arias MD [Physician] - 1 week Print Language: Tamazight
--- NOTE | 2023-11-20 19:42 | MHC.EDTECH ---
Patient brought into triage,labs drawn and sent to lab.
[2023-11-20 19:44] LABS: MANUAL DIFF FLAG NO
[2023-11-20 19:46] LABS: Basophils Absolute Auto 0.1 X10*3/uL (0.0-0.2); Basophils Percent Auto 0.6 % (0-2); Eosinophils Percent Auto 0.4 % (0-4); Hematocrit 46.8 % (42.0-52.0); Hemoglobin 15.6 g/dl (14.0-18.0); Imm Gran Abs Auto 0.03 X10*3/uL (0.00-0.03); Imm Gran Pct Auto 0.3 % (0.0-0.4); Lymphocytes Absolute Auto 2.7 X10*3/uL (1.2-4.9); Lymphocytes Percent Auto 26.9 % (20-40); Mean Corpuscular HGB Conc 33.3 g/dl (31.0-36.0); Mean Corpuscular Hemoglobin 30.5 pg (27.0-33.0); Mean Corpuscular Volume 91.4 fL (80.0-98.0); Mean Platelet Volume 11.2 fL (9.4-12.4); Monocytes Absolute Auto 0.8 X10*3/uL (0.1-1.2); Monocytes Percent Auto 8.4 % (2-11); Neutrophils Absolute Auto 6.4 x10*3/uL (2.0-8.3); Neutrophils Percent Auto 63.4 % (45-73); Platelet Count 229 X10*3/uL (160-400); Red Blood Count 5.12 X10*6/uL (4.60-5.80); Red Cell Distribution Width 12.9 % (11.0-16.0)
[2023-11-20 20:09] LABS: Alanine Aminotransferase 15 U/L (0-40); Albumin Level 4.6 g/dL (3.5-5.0); Alkaline Phosphatase 99 U/L (39-117); Anion Gap 15 (12-20); Aspartate Amino Transferase 16 U/L (5-37); Bilirubin Direct 0.1 mg/dL (0.0-0.5); Bilirubin Total 0.3 mg/dL (0.0-1.0); Blood Urea Nitrogen 15 mg/dL (9-16); Calcium 9.7 mg/dL (8.4-10.2); Carbon Dioxide 28 mmol/L (22-29); Chloride 107 mmol/L (96-108); Creatinine Clr Calc Pharmacy 108.3; Estimated Glomerular Filt Rate > 60; Glucose Random 86 mg/dL (60-115); Lipase 18 U/L (8-78); Potassium 3.8 mmol/L (3.3-5.1); Sodium 146 mmol/L (135-145); Total Protein 7.8 g/dL (6.5-8.0)
--- NOTE | 2023-11-20 21:32 | PC.NURSE ---
pt talking on phone in NAD
[2023-11-20 22:21] VITALS: BP 113/64; PULSE 59; RESP 16; TEMP 36.6; O2SAT 99
[2023-11-20 23:55] VITALS: BP 115/58; PULSE 62; RESP 18; TEMP 36.8; O2SAT 99
== END 2023-11-20 23:56 | disposition home or self-care (01) ==
PROVIDERS: Physician Assistant; Emergency Provider Emergency Medicine
DX: M24.212 Disorder of ligament, left shoulder (principal); M23.91 Unspecified internal derangement of right knee; K42.9 Umbilical hernia without obstruction or gangrene; M25.561 Pain in right knee; F17.200 Nicotine dependence, unspecified, uncomplicated; F12.90 Cannabis use, unspecified, uncomplicated
CPT/HCPCS: 36415; 73030; 73564; 80048; 80076; 83605; 83690; 85025; 99284

== ENCOUNTER 2023-12-11 14:00 | Outpatient (AMB) | payer MEDICAID, SELFPAY ==
--- NOTE | 2023-12-11 14:04 | MHC.OFFVIS ---
Vital Signs 12/11/23 14:10 Height 5 ft 8 in Weight 170 lb BMI 25.8 Intake Visit Reasons: Umbilical Hernia Intake Note: This patient presents for [facility] [place] follow-up for Umbilical Hernia. Pt c/o; ER 11/20/23 No DI, reports bulge, reports pain. Inside Sales Administrator Required: No Accompanied by: Self / Same As Patient Allergies No Known Allergies Allergy (Verified 12/11/23 14:10) Medication List - Last Reconciled 12/11/23 by Rod Arias MD amoxicillin-pot clavulanate 500-125 mg (Augmentin) 1 tab PO BID amoxicillin-pot clavulanate 875-125 mg 1 tab PO BID chlorhexidine gluconate 0.12% 15 mL buccal BID cyclobenzaprine 10 mg PO TID PRN ibuprofen 400 mg PO Q6H PRN ibuprofen 600 mg PO Q8H PRN ketorolac 10 mg PO TID PRN HPI HPI Umbilical Hernia: Details: 28-year-old male referred for an umbilical hernia. He says that he has had this for several months. He had been incarcerated in longterm and he says that this had not been taken care of while he was in [facility]. He went to the ER last month because of this. He describes discomfort especially when he is exercising. He does not seem to have any GI complaints. He admits to vaping. He also says he takes medications for herpes simplex. [facility] Medical History No known health problems Social History Alcohol intake: current Alcohol intake frequency: holidays/special occasions only Patient Tobacco Use Status: Current everyday Tobacco user Substance Use Type: Marijuana Review of Systems Const Denies chills and Denies fever(s) Card Denies chest pain, Denies dyspnea and Denies dyspnea on exertion Resp Denies cough, Denies dyspnea and Denies dyspnea on exertion GI Denies hematochezia and Denies change in bowel habits Denies hematuria and Denies difficulty urinating Musc Denies back pain and Denies limited range of motion Neuro Denies focal weakness and Denies convulsions Psych Denies depression and Denies mood swings Physical Exam Const General: comfortable and no acute distress Orientation/consciousness: patient oriented x3 Neck Neck: Yes no lymphadenopathy Resp Auscultation: clear to auscultation bilaterally Cardio Rhythm: regular rhythm GI Other: Umbilical hernia, about 2.5 cm, nonreducible Palpation (GI): Soft to palpation, nontender and no guarding Neuro General: patient oriented x3 Assessment & Plan Assessment & Plan (1) Hernia, umbilical: Code(s): K42.9 - Umbilical hernia without obstruction or gangrene Category: Medical Plan: He has a nonreducible umbilical hernia as described above. He had a CAT scan in 2020 which showed this fat containing hernia. He describes discomfort in the area especially when he is exercising. I explained to him the technique of repair of the umbilical hernia with possible mesh placement. I reviewed the risks including but not limited to bleeding, infections, bowel injury, recurrence, as well as the benefits and alternatives. I reviewed with him what to expect postoperatively He says he understands and wants to proceed. Coding Level of Care Code New Pt Level 3 (54997) Diagnoses Hernia, umbilical K42.9
[2023-12-11 14:10] VITALS: BMI 25.8
== END 2023-12-11 14:32 | disposition home or self-care (01) ==
LOC: HO.HGS 14:00
PROVIDERS: PCP Nurse Practitioner Primary Care; Referring Provider Physician Assistant; Visit Provider Surgery
DX: K42.9 Umbilical hernia without obstruction or gangrene (principal)
CPT/HCPCS: 99203

== ENCOUNTER → 2023-12-11 14:00 | Outpatient (BNVA) | payer MEDICAID, SELFPAY | PROVIDERS: PCP Nurse Practitioner Primary Care; Referring Provider Physician Assistant; Visit Provider Surgery | DX: K42.9 Umbilical hernia without obstruction or gangrene (principal) | CPT/HCPCS: 99202 ==

== ENCOUNTER 2023-12-13 10:59 | Outpatient (AMB) | payer MEDICAID, SELFPAY ==
--- NOTE | 2023-12-13 11:05 | A.OFFVIS_ITS ---
Intake Visit Reasons: [employer]LECT[employer]IAN [employer] - ED follow up RT knee internal derangement Intake Note: Jacobo is a 28 year old male who presents today as a new patient for a evolution of his right knee pain/possible meniscus tear. Pt states that he was incarcerated and was playing basketball and handball and states that the longer he played the worse his knee pain got. Pt states he landed on his knees a lot while playing these sports. Pt states the pain has subsided somewhat since not being as active but states if he goes for a jog he will get pain and locking in his right knee. Pt denies any previous surgeries or injections in his right knee, Allergies No Known Allergies Allergy (Verified 12/13/23 11:05) HPI HPI [employer] - ED follow up RT knee internal derangement: Details: 28-year-old male who presents in the office today, as a new patient, for an evaluation of right knee pain. The [place] [facility] [place] with the complaint of right knee pain and knee locking. Patient sustained a sports injury 5 months ago. X-rays of the bilateral shoulder and right knee were obtained. He was then referred to the office for further evaluation. While in the office today, the patient complains of right knee pain. He states he was incarcerated. He mentions playing basketball and handball. His right knee pain worsened as he continued playing these sports. He landed on his knees multiple times while playing. He reports that the pain has mildly subsided since he has not been as active as before. However, he experiences pain and locking in his right knee when he goes for a jog. He denies any previous surgeries or injections in his right knee. [facility] Medical History No known health problems Social History Alcohol intake: current Alcohol intake frequency: holidays/special occasions only Patient Tobacco Use Status: Current everyday Tobacco user Substance Use Type: Marijuana Review of Systems Const All systems reviewed & are unremarkable except as noted in HPI and below Physical Exam Extrem Other: Right knee normal to inspection. No ecchymosis, erythema or joint effusion. Full ROM but complains of pain. Reports pain along both medial and lateral joint lines. Primarily around the medial and lateral aspects of the patella. Negative anterior drawer. NVI. Assessment & Plan Assessment & Plan (1) Internal derangement of right knee: Code(s): M23.91 - Unspecified internal derangement of right knee Category: Medical Plan Mr. Jeronimo is a 28-year-old male who presents in the office today, as a new patient, for an evaluation of right knee pain. The patient presented [place] [facility] [place] with the complaint of right knee pain and knee locking. Patient sustained a sports injury 5 months ago. X-rays of the bilateral shoulder and right knee were obtained. He was then referred to the office for further evaluation. While in the office today, the patient complains of right knee pain. He states he was incarcerated. He mentions playing basketball and handball. His right knee pain worsened as he continued playing these sports. He landed on his knees multiple times while playing. He reports that the pain has mildly subsided since he has not been as active as before. However, he experiences pain and locking in his right knee when he goes for a jog. He denies any previous surgeries or injections in his right knee. The patient was referred to physical therapy. I have also placed an order for an MRI to further evaluate the integrity of the right knee. However, should the insurance deny the MRI order due to not completing 4-6 weeks of physical therapy sessions, the patient understands he will need to complete the course of physical therapy before a new order can be placed. We would then resubmit for the MRI imaging if needed. He understands and accepts the plan. Follow-up will be after the MRI is obtained, or sooner if needed. X-rays of the right knee, obtained on 11/20/23, revealed: Normal right knee. X-rays of the bilateral shoulder, obtained on 11/20/23, revealed: Normal bilateral shoulders. Orders: Orders PT Evaluation and Treatment 12/13/23 M23.91 - Unspecified internal derangement of right knee MR knee RT wo con 12/13/23 M23.91 - Unspecified internal derangement of right knee Patient Instructions: Scribed by Petty Oneal, medical equipment repairer, for Deja Flynn PA-C on 12/13/23 at 11:34 am EST. Coding Level of Care Code New Pt Level 4 (93841) Diagnoses Internal derangement of right knee M23.91
== END 2023-12-13 11:30 | disposition home or self-care (01) ==
PROVIDERS: Visit Provider Physician Assistant
DX: M23.91 Unspecified internal derangement of right knee (principal)
CPT/HCPCS: 99203

== ENCOUNTER → 2023-12-13 10:59 | Outpatient (BNVA) | payer MEDICAID, SELFPAY | PROVIDERS: Visit Provider Physician Assistant | DX: M23.91 Unspecified internal derangement of right knee (principal) | CPT/HCPCS: 99212 ==

== ENCOUNTER 2023-12-17 10:58 | Outpatient (AMB) | payer MEDICAID, SELFPAY ==
--- NOTE | 2023-12-17 11:00 | MHC.OFFVIS ---
Intake Visit Reasons: OV - ER follow up left shoulder ligamentous laxity Intake Note: Jacobo is a 28 year old right hand dominant male who presents to the office today for an ER follow up left shoulder ligamentous laxity. Patient states ongoing pain for many years. Hx of being in a coma for 14 days. He states that he hear a popping/clicking. Patient mentions with certain movements casues him pain. Allergies No Known Allergies Allergy (Verified 12/17/23 11:07) HPI HPI OV - ER follow up left shoulder ligamentous laxity: Details: 28-year-old right hand dominant male who presents in the office today for an evaluation of left shoulder ligamentous laxity. He was incarcerated and got released on 11/16/23. The patient presented to the ER on 11/20/23 for left shoulder pain and clicking in the left shoulder. X-rays of the bilateral shoulders were obtained. I last saw the patient in the office on 12/13/23 for right knee pain when an order was placed for an MRI of the right knee and he was referred to physical therapy. While in the office today, the patient reports ongoing left shoulder pain for the past several years. He states he has noticed a popping/clicking sensation in the left shoulder. He mentions pain with certain movements. The patient has a history of being in a coma for 14 days. [facility] Medical History No known health problems Social History Alcohol intake: current Alcohol intake frequency: holidays/special occasions only Patient Tobacco Use Status: Current everyday Tobacco user Substance Use Type: Marijuana Review of Systems Const All systems reviewed & are unremarkable except as noted in HPI and below Physical Exam Const General: cooperative, healthy appearing and no acute distress Resp Effort & Inspection: normal respiratory effort and able to speak in complete sentences Cardio Rate: regular rate Peripheral pulses: Peripheral pulses 2+ throughout GI Palpation (GI): Soft to palpation Skin Lesions: no lesions Rashes: no rashes Extrem Other: Left shoulder: Normal to inspection. No ecchymosis, erythema, or edema. Full shoulder ROM in all planes. Pain as well as popping/clicking sound on the posterior aspect of the shoulder. Pain with cross-body reach. Negative empty can. Negative drop arm. NVI. Assessment & Plan Assessment & Plan (1) Instability of left shoulder joint: Code(s): M25.312 - Other instability, left shoulder Category: Medical Plan Mr. Jeronimo is a 28-year-old right hand dominant male who presents in the office today for an evaluation of left shoulder ligamentous laxity. He was incarcerated and got released on 11/16/23. The patient presented to the ER on 11/20/23 for left shoulder pain and clicking in the left shoulder. X-rays of the bilateral shoulders were obtained. I last saw the patient in the office on 12/13/23 for right knee pain when an order was placed for an MRI of the right knee and he was referred to physical therapy. While in the office today, the patient reports ongoing left shoulder pain for the past several years. He states he has noticed a popping/clicking sensation in the left shoulder. He mentions pain with certain movements. The patient is referred to physical therapy. He will attend 6 weeks of physical therapy. He will follow up with me via telehealth appointment after the physical therapy to discuss any improvement or lack of improvement with physical therapy. Should the patient still persist in having pain, we will then proceed with an MRI order for further evaluation and integrity of the left shoulder. I would likely have him follow up with Dr. Webb for MRI review, or sooner if needed. Follow-up will be in 6 weeks via telephone, or sooner if needed. Orders: Orders PT Evaluation and Treatment Today M25.312 - Other instability, left shoulder Patient Instructions: Scribed by Petty Oneal certified medical coding specialist, for Deja Flynn PA-C on 12/17/23 at 11:22 am EST. Coding Level of Care Code Est Pt Level 3 (75141) Diagnoses Instability of left shoulder joint M25.312
== END 2023-12-17 11:43 | disposition home or self-care (01) ==
PROVIDERS: Visit Provider Physician Assistant
DX: M25.312 Other instability, left shoulder (principal)
CPT/HCPCS: 99213

== ENCOUNTER → 2023-12-17 10:58 | Outpatient (BNVA) | payer MEDICAID, SELFPAY | PROVIDERS: Visit Provider Physician Assistant | DX: M24.212 Disorder of ligament, left shoulder (principal) | CPT/HCPCS: 99212 ==

== ENCOUNTER 2024-01-01 04:43 | Emergency (ER) | payer MEDICAID, SELFPAY ==
--- NOTE | ~2024-01-01 | CT_ITS ---
EXAMINATION: CT FACIAL BONES WITHOUT CONTRAST CLINICAL INFORMATION: Unknown trauma. Pain. COMPARISON: None available. TECHNIQUE: Contiguous axial images through the maxillofacial bones using 3.0 and 1.5 mm collimation with bone and soft tissue algorithm. Sagittal and coronal reformatted images acquired. This CT examination was performed using dose optimization techniques as appropriate, variously including the following: *Automated exposure control *Adjustment of mA and/or kV according to patient size (this includes techniques or standardized protocols for targeted exams where dose is matched to indication/reason for exam; i.e. extremities or head) *Use of iterative reconstruction technique DLP: 298 mGy-cm FINDINGS: Nasal bones, nasal septum bone marrow are intact. Traumatic deformity, left orbital floor just medial to the infraorbital foramen resulting in herniated extraconal fat. No entrapment of the extraocular muscle. No intraconal or extraconal compartment hematoma. The right orbital rim is intact. The orbital apices, superior and inferior orbital fissures are intact. The eyes are intact. The vidian canal and foramen rotundum are intact. Zygomatic arcs are intact. Maxilla/pterygopalatine plates are intact. Mandible is intact. Temporomandibular joints are intact. No air-fluid levels in the paranasal sinuses. Poor pneumatization of the frontal sinus. Poor pneumatization of the mastoid air cells. Tympanic cavities and mastoid cells are aerated. CT/CT facial bones wo IV con IMPRESSION: No acute fracture, maxillofacial bones. No hematoma, orbits. 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 Electronically signed by: You Bailey MD 01/01/2024 08:39 AM [facility]
--- NOTE | ~2024-01-01 | CT_ITS ---
EXAMINATION: CT CERVICAL SPINE WITHOUT CONTRAST CLINICAL INFORMATION: Unknown trauma. Pain. COMPARISON: CT dated August 23, 2020. TECHNIQUE: Contiguous axial images through the cervical spine from the skull base to thoracic inlet using 3 mm collimation with bone and soft tissue algorithm. Sagittal and coronal reformatted images acquired. This CT examination was performed using dose optimization techniques as appropriate, variously including the following: *Automated exposure control *Adjustment of mA and/or kV according to patient size (this includes techniques or standardized protocols for targeted exams where dose is matched to indication/reason for exam; i.e. extremities or head) *Use of iterative reconstruction technique DLP: 407 mGy-cm FINDINGS: Craniocervical junction is intact. C1 is intact. C2 is intact. No acute cortical disruption within the vertebral bodies, transverse processes, facet joints, lamina nor the posterior spinous processes. The alignment is normal. No gross prevertebral compartment hematoma. Secretions within the vallecula. Tympanic cavities and mastoid air cells are aerated with poor pneumatization of the mastoid air cells.. CT/CT cervical spine wo IV con IMPRESSION: No acute fracture or trauma-related listhesis. Fleischner guidelines were followed. Electronically signed by: You Bailey MD 01/01/2024 08:44 AM EST
--- NOTE | ~2024-01-01 | CT_ITS ---
EXAMINATION: CT HEAD WITHOUT CONTRAST CLINICAL INFORMATION: unknown trauma, pain COMPARISON: CT dated August 23, 2020 TECHNIQUE: Contiguous axial imaging was performed from the skull base to vertex without intravenous administration of contrast. This CT examination was performed using dose optimization techniques as appropriate, variously including the following: *Automated exposure control *Adjustment of mA and/or kV according to patient size (this includes techniques or standardized protocols for targeted exams where dose is matched to indication/reason for exam; i.e. extremities or head) *Use of iterative reconstruction technique DLP: 694 mGy-cm FINDINGS: Traumatic deformity, left orbital floor likely old. Bony calvarium is intact. No acute intracranial hemorrhage, mass effect, midline shift, hydrocephalus or herniation. Smith-white matter differentiation is normal. Posterior cranial fossa contents demonstrated no acute intracranial hemorrhage or mass effect. No air-fluid levels in the included paranasal sinuses. Tympanic cavities and mastoid cells are aerated. Poor visualization of the mastoid air cells. CT/CT head/brain wo IV con IMPRESSION: No acute fracture, bony calvarium. No acute intracranial hemorrhage. Old Traumatic deformity, left orbital floor. Electronically signed by: You Bailey MD 01/01/2024 08:29 AM [facility] [place]
[2024-01-01 04:47] VITALS: BP 126/74; PULSE 76; O2SAT 96
[2024-01-01 04:56] VITALS: BMI 22.8
[2024-01-01 04:57] VITALS: BP 108/61; PULSE 73; RESP 18; TEMP 36.8; O2SAT 96
--- NOTE | 2024-01-01 05:07 | MHC.EDTECH ---
Patient BIBA,changed into hospital attire,security assisted with globe changer, all belongings went to [facility],pt has cellphone at bedside belongings list completed,copy placed in chart
--- NOTE | 2024-01-01 06:42 | ED_ITS ---
HPI - General Adult General Chief complaint: Head Injury Stated complaint: PCP Time Seen by Provider: 01/01/24 06:40 Source: patient and EMS Mode of arrival: EMS Limitations: no limitations History of Present Illness ED Provider: Cathleen Narvaez PA-C HPI narrative: Patient is a 28 year old assigned male at with no reported medical history presenting to the emergency department today with facial injuries and PCP use. Patient states that he did use PCP last night and as he was walking, he noticed his face was bleeding. Patient states that he does not believe he got into a fight or had any sort of trauma. Patient denies any dizziness, lightheadedness, abdominal pain, nausea, vomiting, fever, chills, blurry vision, double vision, loss of vision, chest pain, difficulty breathing, shortness of breath, back pain, night sweats, pain with urination, increased urinary frequency, increased urinary urgency, blood in his urine or stool, syncope or a near syncopal episode, bowel incontinence, bladder incontinence, or any other complaints at this time. Relieving factors: none Exacerbating factors: none Associated symptoms: denies other symptoms Treatments prior to arrival: none Related Data Previous Rx's ?Medication ?Instructions ?Recorded doxycycline hyclate 100 mg tablet 100 mg PO BID 7 days #14 tabs 01/01/24 Allergies Allergy/AdvReac Type Severity Reaction Status Date / Time No Known Allergies Allergy Verified 01/01/24 04:57 Review of Systems 2 Constitutional: Constitutional: Reports no additional constitutional complaints, Denies chills, Denies fever(s) and Denies night sweats Eyes: Eyes: Reports no additional eye complaints, Denies blurry vision, Denies change in vision, Denies diplopia, Denies eye discharge, Denies loss of vision and Denies eye pain ENT: Denies dizziness Comments: facial pain / bleeding Cardiovascular: Cardiovascular: Reports no additional cardiovascular complaints, Denies chest pain, Denies lightheadedness, Denies Loss of Consciousness and Denies dyspnea Respiratory: Respiratory: Reports no additional respiratory complaints and Denies dyspnea Gastrointestinal: Gastrointestinal: Reports no additional gastrointestinal complaints, Denies abdominal pain, Denies melena, Denies hematochezia, Denies change in bowel habits and Denies change in stool character Genitourinary: Genitourinary: Reports no additional male genitourinary complaints, Denies hematuria, Denies oliguria, Denies difficulty urinating, Denies dysuria, Denies urinary frequency, Denies urinary hesitancy, Denies urinary incontinence and Denies urinary urgency Musculoskeletal: Musculoskeletal: Reports no additional musculoskeletal complaints, Denies numbness and Denies tingling Neurologic: Denies dizziness, Denies loss of vision, Denies numbness and Denies tingling Psychiatric: Psychiatric: Reports no additional psychiatric complaints Endocrine: Endocrine: Reports no additional endocrine complaints Hematologic/Lymphatic: Hematologic/Lymphatic: Reports no additional hematologic/lymphatic complaints Allergic/Immunologic: Allergic/Immunologic: Reports no additional allergic/immunologic complaints [facility] Past Medical History Attestation statement: The following information was validated with the patient. Source: old records reviewed and nursing notes reviewed Medical History No known health problems Social History Social History Alcohol intake: current Alcohol intake frequency: holidays/special occasions only Patient Tobacco Use Status: Current everyday Tobacco user Substance Use Type: Marijuana Advance Directives: No Advance Directives Information Provided: Yes Do you have a plan to hurt others: No Plan Physical Exam ED Vital Signs: Vital Signs - 24 hr 01/01/24 04:57 01/01/24 08:15 Temperature 98.2 F Pulse Rate 73 65 Respiratory Rate 18 17 Blood Pressure 108/61 115/70 Pulse Oximetry 96 97 Oxygen Delivery Method Room Air Room Air BMI result Body Mass Index 22.8 Const General: cooperative, no acute distress, alert and awake Nutritional Appearance: well nourished Orientation/consciousness: patient oriented x3 Limitations: no limitations HENMI Other: multiple areas of bruising and abrasions to the face Head: Yes normal to inspection Ears: hearing grossly normal bilaterally and external ears normal General nose exam: no nasal discharge noted and no epistaxis Face images: 2 1. abrasion 2. flap like lip laceration - no active bleeding, does not go through Mouth: Normal oral and palatal mucosa present, no drooling and no muffled voice Eyes General: appearance normal, both eyes and all related structures Periorbital: periorbital findings normal Eyelids: Yes eyelids normal Conjunctivae: conjunctivae normal Pupils: Equal, round and reactive pupils present EOM: EOMs intact bilaterally Neck Neck: Yes normal visual inspection, Yes full ROM and Yes no lymphadenopathy Chest Chest palpation & inspection: normal inspection of the chest Resp Effort & Inspection: normal respiratory effort and able to speak in complete sentences GI Inspection: Yes normal to inspection Neuro General: patient oriented x3 and moves all extremities Cranial nerves: Yes Equal, round and reactive pupils present Cognition (Neuro): normal cognition Extrem General: Yes normal to inspection, Yes full ROM and Yes capillary refill normal Psych Appearance: grossly normal Mental Status: mental status grossly normal Affect: normal affect Attitude: cooperative Thought process: Normal thought process present Thought content: Normal thought content present Insight: Good insight present (Psych) Procedures Laceration Laceration 1: Site: lip Side (If applicable): right Size (cm): 0.5 Description: flap Depth: simple, single layer Pre-repair: wound explored, irrigated extensively and deep structures intact Skin layer closed with: other (dermabond) Size (cm): other (dermabond) Technique: other (dermabond) Medical Decision Making Medical Decision Making MDM Narrative: Patient is a 28 year old assigned male at with no reported medical history presenting to the emergency department today with facial injuries after an unknown trauma occurred. Patient's physical exam was as noted in the physical exam portion of this note. Patient's CT head, c-spine, and face showed no acute process. I explained my physical exam findings as well as all test results to the patient. I answered all questions asked by the patient. Patient's laceration was repaired, with dermabond, per procedure note - without incident. I stressed the importance of the patient taking his medication as directed (either prescribed or as the over the counter packaging recommends). I stressed the importance of the patient following up with his primary care provider. I stressed the importance of the patient returning to the emergency department immediately if his symptoms were to worsen or if he were to develop any dizziness, shortness of breath, difficulty breathing, chest pain, blurry vision, loss of vision, nausea, vomiting, abdominal pain, fever, chills, back pain, or any other complaints. Patient verbalized agreement and understanding with this treatment plan and discharge. Differential Diagnosis Differential Diagnoses: The differential diagnosis associated with the presentation includes Lip laceration PCP use Unknown trauma Admission/Observation Consideration of admission/observation: Escalation of care including admission/observation considered Patient would have been admitted to the hospital had his work up had any findings where hospital admission was appropriate and his clinical presentation warranted hospital admission. Independent Interpretation I performed an independent interpretation of an: CT Scan Interpretation: My interpretation is in agreement with the radiologist's impression of these imaging studies. L EXAMINATION: CT FACIAL BONES WITHOUT CONTRAST CLINICAL INFORMATION: Unknown trauma. Pain. COMPARISON: None available. TECHNIQUE: Contiguous axial images through the maxillofacial bones using 3.0 and 1.5 mm collimation with bone and soft tissue algorithm. Sagittal and coronal reformatted images acquired. This CT examination was performed using dose optimization techniques as appropriate, variously including the following: *Automated exposure control *Adjustment of mA and/or kV according to patient size (this includes techniques or standardized protocols for targeted exams where dose is matched to indication/reason for exam; i.e. extremities or head) *Use of iterative reconstruction technique DLP: 298 mGy-cm FINDINGS: Nasal bones, nasal septum bone marrow are intact. Traumatic deformity, left orbital floor just medial to the infraorbital foramen resulting in herniated extraconal fat. No entrapment of the extraocular muscle.No intraconal or extraconal compartment hematoma. The right orbital rim is intact. The orbital apices, superior and inferior orbital fissures are intact. The eyes are intact. The vidian canal and foramen rotundum are intact. Zygomatic arcs are intact. Maxilla/pterygopalatine plates are intact. Mandible is intact. Temporomandibular joints are intact. No air-fluid levels in the paranasal sinuses. Poor pneumatization of the frontal sinus. Poor pneumatization of the mastoid air cells. Tympanic cavities and mastoid cells are aerated. CT/CT facial bones wo IV con IMPRESSION: No acute fracture, maxillofacial bones. No hematoma, orbits. 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 Electronically signed by: You Bailey MD 01/01/2024 08:39 AM EST Dictated By: You Burrell MD Signed By: Electronically signed by You Fuller MD 01/01/24 0839 EXAMINATION: CT HEAD WITHOUT CONTRAST CLINICAL INFORMATION: unknown trauma, pain COMPARISON: CT dated August 23, 2020 TECHNIQUE: Contiguous axial imaging was performed from the skull base to vertex without intravenous administration of contrast. This CT examination was performed using dose optimization techniques as appropriate, variously including the following: *Automated exposure control *Adjustment of mA and/or kV according to patient size (this includes techniques or standardized protocols for targeted exams where dose is matched to indication/reason for exam; i.e. extremities or head) *Use of iterative reconstruction technique DLP: 694 mGy-cm FINDINGS: Traumatic deformity, left orbital floor likely old. Bony calvarium is intact. No acute intracranial hemorrhage, mass effect, midline shift, hydrocephalus or herniation. Smith-white matter differentiation is normal. Posterior cranial fossa contents demonstrated no acute intracranial hemorrhage or mass effect. No air- fluid levels in the included paranasal sinuses. Tympanic cavities and mastoid cells are aerated. Poor visualization of the mastoid air cells. CT/CT head/brain wo IV con IMPRESSION: No acute fracture, bony calvarium. No acute intracranial hemorrhage. Old Traumatic deformity, left orbital floor. Electronically signed by: You Bailey MD 01/01/2024 08:29 AM [facility] [place] Dictated By: You Burrell MD Signed By: Electronically signed by You Fuller MD 01/01/24 0829 EXAMINATION: CT CERVICAL SPINE WITHOUT CONTRAST CLINICAL INFORMATION: Unknown trauma. Pain. COMPARISON: CT dated August 23, 2020. TECHNIQUE: Contiguous axial images through the cervical spine from the skull base to thoracic inlet using 3 mm collimation with bone and soft tissue algorithm. Sagittal and coronal reformatted images acquired. This CT examination was performed using dose optimization techniques as appropriate, variously including the following: *Automated exposure control *Adjustment of mA and/or kV according to patient size (this includes or standardized protocols for targeted exams where dose is matched to indication/reason for exam; i.e. extremities or head) *Use of iterative reconstruction technique DLP: 407 mGy-cm FINDINGS: Craniocervical junction is intact. C1 is intact. C2 is intact. No acute cortical disruption within the vertebral bodies, transverse processes, facet joints, lamina nor the posterior spinous processes. The alignment is normal. No gross prevertebral compartment hematoma. Secretions within the vallecula. Tympanic cavities and mastoid air cells are aerated with poor pneumatization of the mastoid air cells.. CT/CT cervical spine wo IV con IMPRESSION: No acute fracture or trauma-related listhesis. Fleischner guidelines were followed. Electronically signed by: You Bailey MD 01/01/2024 08:44 AM EST Dictated By: You Burrell MD Signed By: Electronically signed by You Fuller MD 01/01/24 0844 Radiology Impression Discussion of test interpretation with radiology: I have reviewed the radiologist's reading. Prescription Management I considered prescription management with: Antibiotic (given the mechanism of injury - patient given a prophylactic antibiotic) Discharge Plan Discharge Clinical Impression: Laceration of lip, Abrasion, Contusion Patient Disposition: Home, Self-Care Instructions: Laceration (DC), Contusion in Adults (ED), Abrasion (ED), Skin Adhesive Care (ED) Additional Instructions: Avoid getting the repaired area on your upper lip wet for at LEAST 7 days. The glue will dissolve on it's own. Take your antibiotic as prescribed. Follow up with your primary care provider. Return to the emergency department immediately if your symptoms worsen or if you develop any dizziness, shortness of breath, difficulty breathing, chest pain, blurry vision, loss of vision, nausea, vomiting, abdominal pain, fever, chills, back pain, or any other complaints. Prescriptions: New doxycycline hyclate 100 mg tablet 100 mg PO BID 7 Days Qty: 14 0RF Referrals: [facility] [Primary Care Provider] - Stand Alone Forms: Work/School Release Print Language: Chinese
[2024-01-01 08:15] VITALS: BP 115/70; PULSE 65; RESP 17; O2SAT 97
--- NOTE | 2024-01-01 08:25 | PC.NURSE ---
Alert and responsive, unsure of how he got scraps on face oob ambulating to bathroom . Calm and cooperative
[2024-01-01 09:20] VITALS: BP 115/70; PULSE 65; RESP 18; TEMP 36.8; O2SAT 97
--- NOTE | 2024-01-01 09:23 | PC.NURSE ---
explained to patient multiple times area that was glued on top of lip should not get wet for 7 days. Patient verbalized understanding but agitated that he feels like he cant shower for 7 days. Reminded to peanut picker abt from [facility]
== END 2024-01-01 09:47 | disposition home or self-care (01) ==
PROVIDERS: Emergency Provider Emergency Medicine
DX: S01.511A Laceration without foreign body of lip, initial encounter (principal); S00.81XA Abrasion of other part of head, initial encounter; S00.83XA Contusion of other part of head, initial encounter; X58.XXXA Exposure to other specified factors, initial encounter; Y93.9 Activity, unspecified; Y92.9 Unspecified place or not applicable; Y99.9 Unspecified external cause status
CPT/HCPCS: 12011; 70450; 70486; 72125; 99283; 99284

== ENCOUNTER → 2024-01-01 06:53 | Outpatient (BNV) | payer MEDICAID, SELFPAY | PROVIDERS: Emergency Provider Emergency Medicine; Visit Provider Radiology Diagnostic Radiology | DX: R51.9 Headache, unspecified (principal); M54.2 Cervicalgia | CPT/HCPCS: 70450; 70486; 72125 ==

== ENCOUNTER 2024-01-13 08:06 | Outpatient (RCR) | payer MEDICAID, SELFPAY ==
--- NOTE | 2023-12-24 11:38 | MHC.PT.EP ---
[facility] [place] Office [place] Office [place] Office [address] Elida Guerra [address] [phone] F: [phone] F: [phone] F: [phone] F: [phone] Physical Therapy Plan of Care Date of Evaluation: 12/24/23 Date of Surgery: Diagnosis: INTERNAL DERANGEMENT RIGHT KNEE Assessment: 28 YO MALE REF TO PT FOR Rt KNEE INTERNAL DERANGEMENT- HE NOTES APPROX 5 MONTH H/O Rt KNEE SXS- PLAYED AGGRESSIVE SPORTS WHILE INCARCERATED. 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 OBJECTIVELY, HE HAS (+) Rt INFRAPAT FAT PAD IRRIT AND DECR LATERAL RETINACULAR MOBILITY; (+) Rt KNEE VALGUS STRESS, (-) ANT/POST DRAWER TESTS; (+) CREPITUS INF POLE RT PATELLA, DECR FLEXIB IB CALVES/ ITB/ HIP IR; HS DOMINANT-> STRENGTH DEF IN GLUTES, AND FLUCT PAIN IN Rt INFRAPATELLA > SUPRAPAT REGION. FUNCTIONALLY, THE Pt HAS DECR KAMINI TO JOGGING/RUNNING, QUICK CHANGE IN DIRECTION OF AMB; STAIR NAVIGATION, AND SQUATTING. HE WOULD BENEFIT FROM PT TO ADDRESS THE ABOVE FINDINGS AND ASSIST HIM IN MANAGING HIS SXS/ REDUCING RISK OF REINJURY. Frequency and Duration: The patient will be seen 2 x WK x 4 WKS Short Term Goals: DECR PAIN Rt KNEE TO 2-3/10 AT MAX INITIATE HEP-> HIP / CALF FLEXIB, LUMBOPELVIC STAB IMPROVE SOFT TISSUE MOB Rt PERIPATELLAR (LATERAL RETIN) AND MORE EFFICIENT PATELLAR TRACKNG TO REDUCE INFRAPATELLAR FAT PAD IRRIT Jail Goals: Pt INDEP W HEP AND SELF SX MGMT TECHN FOR Rt KNEE Pt RESUME REG ADLs AND IMPROVED FUNCT MOB KAMINI-> RESUME JOGGING -> RUNNING EVIDENT W IMPROVED LEFI SCORE, AT EVAL 44/80 LEs STRENGTH IMPROVED SYMMETRICALLY Treatment Plan: Modalities to reduce pain, spasms and effusion. Manual therapy to restore motion and function. Therapeutic exercise to improve strength and flexibility. Neuromuscular re-education for posture and balance. Therapeutic activities to return to functional activities of daily living. Electronically signed by: ELIESER HARDWICK PT Please sign and return to therapist. Thank you for your referral.
--- NOTE | 2024-03-07 11:01 | MHC.PT.DC ---
[facility] [place] [facility] [place] [facility] [place] [facility] [address] [facility] [phone] F: [phone] F: [phone] F: [phone] F: [phone] Physical Therapy Discharge Report Diagnosis: INTERNAL DERANGEMENT RIGHT KNEE Date of Surgery: Date of Evaluation: 12/24/23 Date of Discharge: 03/07/24 Treatments to Date: 7 Cancellations to Date: 0 No Shows to Date: 1 Discharge Status: Improved Function Patient Elected to Stop Discharge Summary: MARIELY WAS CONSISTENTLY ATTENDING PT, ADDRESSING Rt KNEE PAIN, DEV A HEP, AND INCR FUNCTIONAL STRENGTH- HE WAS SHOWING SOME OBJECTIVE PROGRESS, HOWEVER, HIS SUBJECTIVE PAIN DID NOT CONSISTENTLY DECR- HE DID NOT ATTEND HIS LAST SCHED PT APPT , AND, THEREFORE, A FORMAL REASSESSMENT WAS NOT PERFORMED. Electronically signed by: ELIESER HARDWICK,PT Please sign and return to therapist. Thank you for your referral.
== END 2024-06-10 11:53 | disposition home or self-care (01) ==
LOC: HO.PT 08:06
PROVIDERS: PCP Nurse Practitioner Primary Care; Visit Provider Physician Assistant
DX: M23.91 Unspecified internal derangement of right knee (principal)
CPT/HCPCS: 97110; 97112; 97140; 97162

== ENCOUNTER → 2024-01-17 12:12 | Day surgery (SDC) | payer MEDICAID, SELFPAY ==
--- NOTE | 2024-01-16 11:10 | HO.ANESPROP2 ---
HPI - Anesthesia Eval Consult details Narrative: 28yo M for Hernial Umbilical Irreducible with mesh PMFSH Active Problems Active Problems: All Active Problems Instability of left shoulder joint (Acute) Internal derangement of right knee (Acute) Past Medical History Medical History Asthma Coma No known health problems Surgical History Surgical History No pertinent past surgical history Social History Social History Are you a primary medicare sales executive to a significant other at home: No Do you presently have visiting nurse or other home services: No Alcohol intake: current Alcohol intake frequency: holidays/special occasions only Patient Tobacco Use Status: Never used Tobacco Use of substances other than those prescribed or required for medical reasons: Yes Substance Use Type: Marijuana Substance Use Type Other:: PCP Substance Use Frequency: Weekly Have you been hit, kicked, punched, or otherwise hurt by someone within the past year? If so, by whom?: No Are you DNR?: No Advance Directives: No Advance Directives Information Provided: No Advance Directives on File: No Recently lost weight without trying: No How much weight loss: Not applicable Eating poorly because of decreased appetite: No Nutrition screen score: 0 Nutrition Risks: No Nutritional Risk Poor oral hygiene: Yes (upper chipped tooth) Meds Allergies Allergy/AdvReac Type Severity Reaction Status Date / Time No Known Allergies Allergy Verified 01/17/24 12:34 Assessment and Plan Assessment Anesthesia Assessment: Chart Reviewed
[2024-01-17 12:40] VITALS: BMI 26.3
[2024-01-17 12:40] LABS: Amphetamine Screen Urine Not Detected (Not Detect); Barbiturates, Urine Not Detected (Not Detect); Benzodiazepines Screen Urine Not Detected (Not Detect); Buprenorphine Scr Not Detected (Not Detect); Cannabinoid Screen Urine Not Detected (Not Detect); Cocaine Screen Urine Not Detected (Not Detect); Fentanyl, urine Not Detected (Not Detect); Methadone Screen, Urine Not Detected (Not Detect); Opiate Screen Urine Not Detected (Not Detect); Oxycodone Screen Urine Not Detected (Not Detect); Phencyclidine Screen Urine POSITIVE (Not Detect)
[2024-01-17 12:49] VITALS: BP 111/67; PULSE 62; RESP 16; TEMP 36.9; O2SAT 99
--- NOTE | 2024-01-17 12:52 | MHC.SHP ---
Pre-Procedural Eval Section A - 24 Hr Update-Section A only Date of Service: 01/17/24 Section B - Complete if H&P > 30 days Chief Complaint: Umbilical hernia without obstruction or gangrene Details of Present Illness: has had a nonreducible umbilical hernia Relevant Family History (Specify if Yes): No Relevant Social History: None Present Medications: see Short Stay Collaborative assessment Medical History: Significant History (PCP use) Allergies: Allergies Allergy/AdvReac Type Severity Reaction Status Date / Time No Known Allergies Allergy Verified 01/17/24 12:34 Review of Systems Sugical H&P ROS: Negative: Constitution, Cardiovascular, Respiratory and Gastrointestinal Exam Surgical H&P Exam: Normal: Heart and Normal: Lungs and Significant Findings: Abdomen (nonreducible umbilical hernia, 2.5 cm) Plan Diagnosis/Plan: Unchanged I have reviewed the history and physical and performed a pertinent physical examination on my patient. No changes have occurred unless specified. Time Spent With Patient Time: Total time managing care of this patient today ____ minutes.
[2024-01-17] MEDS: Lactated Ringers 1,000 ML 100 ML IVCONT (12:57)
--- NOTE | 2024-01-17 13:01 | PC.NURSE ---
Patient in preop. History of polysubstance abuse. States he last took this drug on 12/31 when he went to the ED for a lip injury. Utox complete preop, positive for PCP. Dr. Baires made aware. At bedside to discuss this with patient. May proceed at this time. Patient also drank 1 liter of brisk iced tea at 0200. Dr. Baires made aware. May proceed at this time.
--- NOTE | 2024-01-17 13:43 | W.PM.OPN ---
Operative Note Operative Note Date of Service: 01/17/24 Narrative: Preop diagnosis: Umbilical hernia, nonreducible Postop diagnosis: Umbilical hernia, non reducible, fat containing Procedure: Repair of nonreducible incisional hernia, with Ventralex mesh Surgeon: Rod Arias MD delinquent tax collector assistant: TERESE Corona The patient is a 28-year-old male with a reducible hernia. He wanted to proceed with repair. He understood the technique of repair with mesh and was aware of the risks, benefits, and alternatives He was brought to the operating room. He was placed supine under general anesthesia via laryngeal mask airway. The abdomen was prepped and draped in the usual sterile fashion. A surgical time-out was done. The patient received cefazolin 2 g IV preoperatively I infiltrated the planned line of incision with lidocaine 1%. I made an infraumbilical curvilinear transverse incision with a blade 15. This was carried down through the full-thickness of the skin and subcutaneous fat with electrocautery. I lifted the umbilicus as a flap and the hernia contents off of this. I proceeded to dissect the hernia contents sharply down to the fascial layer. I divided adhesions tethering this hernia contents of the fascial edge until was able to completely reduce the hernia. The hernia defect was about 1 cm in diameter. I positioned a small-sized Ventralex mesh under the fascial defect. I secured the Prolene straps of the mesh to the fascial edge on both sides with Prolene 2 sutures. I then closed the fascial defect with a [id number] Maxon 1 stitch The umbilicus was tacked down to the fascia with a Polysorb 3-0 stitch to re-create the dimple. The subdermal layer was reapposed with Polysorb 3-0 interrupted sutures. Skin closure was achieved with Polysorb 4-0 subcuticular running stitch The incision was infiltrated with Marcaine 0.5% for postop analgesia. Dressings were applied. The procedure was completed The patient tolerated the procedure well. There were no immediate complications. Initial and final counts of sponges and instruments were correct. Estimated blood loss was less than 5 cc. The patient was extubated without difficulty transferred to the recovery room with stable vital signs
[2024-01-17 13:55] VITALS: BP 102/61; PULSE 60; RESP 12; TEMP 36.1; O2SAT 97
[2024-01-17 14:00] VITALS: BP 119/69; PULSE 60; RESP 12; TEMP 36.1; O2SAT 97
[2024-01-17 14:05] VITALS: BP 121/70; PULSE 75; RESP 12; TEMP 36.1; O2SAT 98
[2024-01-17 14:10] VITALS: BP 112/77; BP 115/79; PULSE 68; PULSE 70; RESP 12; TEMP 36.1; O2SAT 97; O2SAT 98
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
--- NOTE | 2024-01-17 15:39 | PC.NURSE ---
Patient going to ED after PACU recovery per anesthesia for crisis evaluation. Dr. St gave report to ED doctor and charge nurse. This nurse called Carmen Henderson RN in the ED to update her with situation. Discharge instructions given to mother Becky Marks via phone with interpreter deaf. Copies of discharge instructions put with patient belongings. All belongings with patient upon transfer to ED in labeled bag.
== END | disposition home or self-care (01) ==
PROVIDERS: Anesthesiology; Visit Provider Surgery
PROC: (CPT 49591; principal; 2024-01-17 13:40)
DX: K42.0 Umbilical hernia with obstruction, without gangrene (principal); K66.0 Peritoneal adhesions (postprocedural) (postinfection); R41.3 Other amnesia; B00.9 Herpesviral infection, unspecified; F16.10 Hallucinogen abuse, uncomplicated; Z86.69 Personal history of other diseases of the nervous system and sense organs; Z79.1 Long term (current) use of non-steroidal anti-inflammatories (NSAID); Z79.899 Other long term (current) drug therapy; F17.290 Nicotine dependence, other tobacco product, uncomplicated
CPT/HCPCS: 49591; 80307; 99499; C1781; J0690; J1100; J2003; J2250; J2405; J2704; J2795; J3010

== ENCOUNTER → 2024-01-17 12:12 | Outpatient (BNV) | payer MEDICAID, SELFPAY | PROVIDERS: Visit Provider Surgery | DX: K42.9 Umbilical hernia without obstruction or gangrene (principal) | CPT/HCPCS: 49592 ==

== ENCOUNTER 2024-01-17 15:43 | Emergency (ER) | payer MEDICAID, SELFPAY ==
--- NOTE | 2024-01-17 15:51 | ECG_ITS ---
Test Reason : AMS Blood Pressure : / mmHG Vent. Rate : 055 BPM Atrial Rate : 055 BPM P-R Int : 114 ms QRS Dur : 088 ms QT Int : 370 ms P-R-T Axes : 043 012 005 degrees QTc Int : 353 ms Sinus bradycardia Nonspecific ST elevation s/o Early Repolarization Abnormal ECG When compared with ECG of 30-MAY-2019 13:24, ST now depressed in Inferior leads Referred By: Generic ED Physician Electronically Signed By:YANETH VARMA MD
[2024-01-17 15:53] VITALS: BP 116/79; PULSE 57; RESP 18; TEMP 36.7; O2SAT 100; BMI 23.2
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
[2024-01-17 16:06] VITALS: BP 116/79; PULSE 61; RESP 18; O2SAT 98
[2024-01-17 16:07] LABS: Glucose, Whole Blood 86 mg/dL (60-115)
--- NOTE | 2024-01-17 16:20 | PC.NURSE ---
Addendum entered by Nelsy Henderson 01/17/24 17:01: nurse from [facility] that pt reported to use pcp but that was on 01/01/24 but currently pt states he cant answer any questions if he takes drugs or smokes cigarets because he does not know if he does or not,unable to complete the work list at this time Original Note: pt coming from [facility], pt had a umbilical hernia repair today, received report from [facility] - procedure went well no complications but pt appears to be extremely altered- pt cant states his own name or birthday did not recognize his mother when pt arrived to the ed still unable to state his name but is looking on his bracelet to identify himself, cant state his birthday, not sure where he is or who dropped him off at the hospital earlier today, pt is reporting abd pain at 8/10, abd has a clean dressing over the wound-no visible leaking fluids through the dressing pt is laughing and joking periodically with this rn pt also reports saying that he does remember anime vs stable and ns on the monitor
[2024-01-17 16:35] LABS: MANUAL DIFF FLAG NO
[2024-01-17 16:36] LABS: Basophils Percent Auto 0.3 % (0-2); Eosinophils Percent Auto 0.1 % (0-4); Hematocrit 44.9 % (42.0-52.0); Hemoglobin 15.1 g/dl (14.0-18.0); Imm Gran Abs Auto 0.03 X10*3/uL (0.00-0.03); Imm Gran Pct Auto 0.3 % (0.0-0.4); Lymphocytes Absolute Auto 1.5 X10*3/uL (1.2-4.9); Lymphocytes Percent Auto 14.8 % (20-40); Mean Corpuscular HGB Conc 33.6 g/dl (31.0-36.0); Mean Corpuscular Hemoglobin 31.3 pg (27.0-33.0); Mean Platelet Volume 11.7 fL (9.4-12.4); Monocytes Absolute Auto 0.2 X10*3/uL (0.1-1.2); Monocytes Percent Auto 2.3 % (2-11); Neutrophils Absolute Auto 8.3 x10*3/uL (2.0-8.3); Neutrophils Percent Auto 82.2 % (45-73); Platelet Count 193 X10*3/uL (160-400); Red Blood Count 4.83 X10*6/uL (4.60-5.80); Red Cell Distribution Width 12.8 % (11.0-16.0); White Blood Count 10.1 X10*3/uL (4.8-10.8)
[2024-01-17] MEDS: 0.9 % Sodium Chloride 1,000 ML 999 ML IV (16:37)
[2024-01-17] MEDS: Ketorolac Tromethamine 15 MG/ML VIAL 10 MG IVPUSH (16:38)
[2024-01-17 16:53] LABS: Alanine Aminotransferase 30 U/L (0-40); Albumin Level 4.1 g/dL (3.5-5.0); Alkaline Phosphatase 78 U/L (39-117); Anion Gap 9 (12-20); Aspartate Amino Transferase 23 U/L (5-37); Bilirubin Direct 0.1 mg/dL (0.0-0.5); Bilirubin Total 0.3 mg/dL (0.0-1.0); Blood Urea Nitrogen 10 mg/dL (9-16); Calcium 9.3 mg/dL (8.4-10.2); Carbon Dioxide 29 mmol/L (22-29); Chloride 105 mmol/L (96-108); Creatinine Clr Calc Pharmacy 111.5; Estimated Glomerular Filt Rate > 60; Ethanol < 10 mg/dL; Glucose Random 100 mg/dL (60-115); Magnesium 1.8 mg/dL (1.6-2.6); Sodium 139 mmol/L (135-145); Total Protein 6.6 g/dL (6.5-8.0)
[2024-01-17 16:59] LABS: Troponin-I High Sensitivity < 2.7 ng/L (<3.5-35.0)
[2024-01-17] MEDS: Acetaminophen 1,000 MG/100 ML PIGGYBACK 400 MG IV (17:43)
[2024-01-17 18:35] LABS: Troponin-I High Sensitivity < 2.7 ng/L (<3.5-35.0)
--- NOTE | 2024-01-17 19:29 | PC.NURSE ---
provider into assess pt, pt able to state his name and date of by looking at his name band, pt is a&o, and on facetime with family members. No sign of distress,
[2024-01-17 20:00] VITALS: BP 105/67; PULSE 66; RESP 16; TEMP 36.6; O2SAT 98
--- NOTE | 2024-01-17 20:27 | PC.NURSE ---
Reviewed discharge instructions with pt and mother, pt stated he remembers thing about today like where he pain medication was sent but can not remember people name, surgical dress clean and dry. pt tolerated sandwich and drink well, pt had a steady gait upon discharge.
[2024-01-17 20:30] VITALS: BP 105/62; PULSE 66; RESP 16; TEMP 36.6; O2SAT 98
== END 2024-01-17 20:31 | disposition home or self-care (01) ==
PROVIDERS: Emergency Medicine; Emergency Provider Internal Medicine
DX: R41.3 Other amnesia (principal); Z98.890 Other specified postprocedural states
CPT/HCPCS: 36415; 80048; 80076; 80307; 82947; 83735; 84484; 85025; 93005; 96361; 96374; 96375; 99284; 99285; J0131; J1885

== ENCOUNTER → 2024-01-17 15:51 | Outpatient (BNV) | payer MEDICAID, SELFPAY | PROVIDERS: Emergency Provider Internal Medicine; Visit Provider Internal Medicine Cardiovascular Disease | DX: R94.31 Abnormal electrocardiogram [ECG] [EKG] (principal) | CPT/HCPCS: 93010 ==

== ENCOUNTER 2024-01-27 10:13 | Outpatient (AMB) | payer MEDICAID, SELFPAY ==
[2024-01-27 10:16] VITALS: BMI 23.2
--- NOTE | 2024-01-27 10:16 | MHC.OFFVIS ---
Vital Signs 01/27/24 10:16 Height 5 ft 4 in Weight 135 lb 0.001 oz BMI 23.2 Intake Visit Reasons: s/p Hernial Umbilical Irreducible with mesh Intake Note: This patient presents for post-op assessment status post Repair of nonreducible incisional hernia, with Ventralex mesh. Pt c/o; reports he got Amnesia x5 days post surgery, reports pain when walking long distances. Light Equipment Operator Required: No Accompanied by: Self / Same As Patient Allergies No Known Allergies Allergy (Verified 01/27/24 10:17) HPI HPI s/p Hernial Umbilical Irreducible with mesh: Details: He underwent repair of an umbilical hernia with Ventralex mesh last 01/17/2024 and is here for postop visit. She is doing well and denies significant complaints. [facility] Medical History Asthma Coma No known health problems Surgical History History of hernia repair (~01/17/24) H/O wisdom tooth extraction No pertinent past surgical history Social History Are you a primary healthcare market consultant to a significant other at home: No Do you presently have visiting nurse or other home services: No Alcohol intake: unknown Patient Tobacco Use Status: Never used Tobacco Substance Use Type: Other Review of Systems Const Denies chills and Denies fever(s) GI Denies abdominal pain and Denies vomiting Physical Exam Vital Signs: BMI result Body Mass Index 23.2 Const General: comfortable and no acute distress Resp Effort & Inspection: normal respiratory effort GI Other: Incision clean and dry, repair site is intact Palpation (GI): Soft to palpation, not firm and nontender Assessment & Plan Assessment & Plan (1) Hernia, umbilical: Code(s): K42.9 - Umbilical hernia without obstruction or gangrene Category: Medical Plan: Status post repair with mesh. He is doing very well. His incision is well healed and the repair is intact. I advised him to avoid lifting anything more than 20 lb for 2 more weeks. He can follow up on a p.r.n. basis. Coding Level of Care Code Global (07138) Diagnoses Hernia, umbilical K42.9
== END 2024-01-27 10:55 | disposition home or self-care (01) ==
PROVIDERS: Visit Provider Surgery
DX: K42.9 Umbilical hernia without obstruction or gangrene (principal); Z09 Encounter for follow-up examination after completed treatment for conditions other than malignant neoplasm
CPT/HCPCS: 99212

== ENCOUNTER → 2024-01-27 10:13 | Outpatient (BNVA) | payer MEDICAID, SELFPAY | PROVIDERS: Visit Provider Surgery | DX: Z09 Encounter for follow-up examination after completed treatment for conditions other than malignant neoplasm (principal); Z87.2 Personal history of diseases of the skin and subcutaneous tissue; Z98.890 Other specified postprocedural states | CPT/HCPCS: 99212 ==

== ENCOUNTER 2024-02-05 19:56 | Outpatient (REF) | payer MEDICAID, SELFPAY | END 2024-02-05 19:57 | disposition home or self-care (01) | LOC: HO.MRI 19:56 | PROVIDERS: Visit Provider Physician Assistant | DX: M23.91 Unspecified internal derangement of right knee (principal) | CPT/HCPCS: 73721 ==

== ENCOUNTER 2024-02-13 14:43 | Outpatient (AMB) | payer MEDICAID, SELFPAY ==
--- NOTE | 2024-02-13 14:44 | MHC.OFFVIS ---
Intake Visit Reasons: Tele - right knee MRI review Intake Note: Jacobo is a 28 year old male who presents today via telephone for a MRI review of his right knee. Allergies No Known Allergies Allergy (Verified 02/13/24 14:45) HPI HPI Tele - right knee MRI review: Details: 28-year-old male, who presents over a telephone for a telehealth appointment for a follow-up of right knee pain. I last saw the patient in the office on 12/13/23 for right knee pain, when he was referred to physical therapy and an MRI of the right knee was ordered for further evaluation. While in the office today, the patient reports persistent right knee pain. [facility] Medical History Asthma Coma No known health problems Surgical History History of hernia repair (~01/17/24) H/O wisdom tooth extraction No pertinent past surgical history Social History Are you a primary laboratory animal care veterinarian to a significant other at home: No Do you presently have visiting nurse or other home services: No Alcohol intake: unknown Patient Tobacco Use Status: Never used Tobacco Substance Use Type: Other Review of Systems Const All systems reviewed & are unremarkable except as noted in HPI and below Physical Exam Extrem Other: deferred to telehealth Telehealth Telehealth Telehealth Platform: Telephone Location of provider rendering services: practice address Location of patient: address on file Patient Identification confirmed using: Name, : Yes Telehealth method: voice only Patient verbally consented to treatment: Yes Patient verbally consented to billing insurance company: Yes Patient informed of any privacy concerns related to visit: Yes Minutes spent on Phone/Video with Pt.: 10 Assessment & Plan Assessment & Plan (1) Instability of left shoulder joint: Code(s): M25.312 - Other instability, left shoulder Category: Medical Plan Mr. Jeronimo is a 28-year-old male, who presents over a telephone for a telehealth appointment for a follow-up of right knee pain. I last saw the patient in the office on 12/13/23 for right knee pain, when he was referred to physical therapy and an MRI of the right knee was ordered for further evaluation. While in the office today, the patient reports persistent right knee pain. I have placed a referral to Pain Management for further evaluation and treatment as there is no surgical intervention at this time. Follow-up will be PRN, or sooner if needed. MRI of the right knee, obtained on 02/05/24, revealed: 1. No meniscal tear. 2. Proximal patellar tendinopathy with a small undersurface partial tear at the patellar insertion. Orders: Referrals Pain Management Referral M23.91 - Unspecified internal derangement of right knee Patient Instructions: Scribed by Petty Oneal, quality engineer medical device, for Deja Flynn PA-C on 02/13/24 at 3:03 pm EST. Coding Level of Care Code Tele Est Pt Level 3 (44665) Diagnoses Instability of left shoulder joint M25.312
== END 2024-02-13 14:51 | disposition home or self-care (01) ==
LOC: HO.HOS 14:43
PROVIDERS: Visit Provider Physician Assistant
DX: M25.312 Other instability, left shoulder (principal)
CPT/HCPCS: 99213

== ENCOUNTER → 2024-02-13 14:43 | Outpatient (BNVA) | payer MEDICAID, SELFPAY | PROVIDERS: Visit Provider Physician Assistant ==

== ENCOUNTER 2024-02-27 14:34 | Outpatient (AMB) | payer MEDICAID, SELFPAY ==
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
[2024-02-27 14:47] VITALS: BP 113/82; PULSE 65; O2SAT 97; BMI 30.4
== END 2024-02-27 15:20 | disposition home or self-care (01) ==
PROVIDERS: Referring Provider Physician Assistant; Visit Provider Nurse Practitioner Family
DX: M23.91 Unspecified internal derangement of right knee (principal); M25.561 Pain in right knee; M67.969 Unspecified disorder of synovium and tendon, unspecified lower leg
CPT/HCPCS: 99204

== ENCOUNTER → 2024-02-27 14:34 | Outpatient (BNVA) | payer MEDICAID, SELFPAY | PROVIDERS: Referring Provider Physician Assistant; Visit Provider Nurse Practitioner Family | DX: M23.91 Unspecified internal derangement of right knee (principal); M25.561 Pain in right knee; M67.969 Unspecified disorder of synovium and tendon, unspecified lower leg | CPT/HCPCS: 99212 ==

== ENCOUNTER 2024-03-26 06:34 | Outpatient (REF) | payer MEDICAID, SELFPAY ==
--- NOTE | ~2024-03-26 | FL_ITS ---
EXAMINATION: XR FLUOROSCOPY WITH IMAGES CLINICAL INFORMATION: Right knee pain. Therapeutic injection. COMPARISON: None available. TECHNIQUE: Fluoroscopy provided to: Dr. Molina Fluoroscopy time: 0.0 minutes DAP: [id number] mGycm2 Images: 2 FINDINGS: Images demonstrate ventral needle intra-articular placement of the right knee subsequent contrast injection. Refer to the full operative report for details. FL/FL guidance in treatment room IMPRESSION: Fluoroscopic guidance. Electronically signed by: Chidi Morejon MD 03/27/2024 10:01 AM KRISTIAN
--- OUTSIDE RECORDS SUMMARY | 2024-03-26 10:21 | XMS_ITS | Encounter Summary ---
Author Organization [employer] Address [address] [place] [address] Care Team Providers Care Microsoft Office Instructor Name Role Phone Consuelo Shannon Primary Care Provider [phone] Reason for Visit * Reason Onset Date Comments Med Refill 05/01/2022 Encounter Details Date Type Department Care Team ([facility] st Contact Info) Description 05/01/2022 Telephone [facility] MEDICINE [address] [place] [address] Consuelo Shannon ANP [address] [place] [address] Med Refill Social History Tobacco Use Types Packs/Day Years Used Date Smoking Tobacco: Never Assessed Sex and Gender Information Value Date Recorded Sex Assigned at Male 12/25/2021 10:14 AM EDT Legal Sex Male 10:14 AM EDT Gender Identity Male 12/25/2021 10:14 AM EDT Sexual Orientation Don't know 12/25/2021 10 :14 AM EDT documented as of this encounter Miscellaneous Notes * Telephone Encounter - Jerica Silva LPN - 05/01/2022 9:50 AM EST Medication was sent to [id number] on 01/08/22 Qty: 90 with 1 refill. * Telephone Encounter - Arnaldo Nguyen - 05/01/2022 9:39 AM EST Tc from pt requesting med refill Valacyclovir 1 gram tablet documented in this encounter Plan of Treatment Not on file documented as of this encounter Visit Diagnoses Not on filedocumented in this encounter Care Teams Microsoft Office Instructor Relationship Specialty Start Date End Date Consuelo Shannon ANP [address] [place] [address] PCP - General Family Medicine 10/25/21 documented as of this encounter
--- OUTSIDE RECORDS SUMMARY | 2024-03-26 10:21 | XMS_ITS | Clinical Summary ---
Author Organization [facility] it[facility] Address [address] [place] [address] Care Team Providers Care Business Objects Developer Name Role Phone Unavailable Primary Care Provider Unavailabl e Social History Tobacco Use Types Packs/Day Years Used Date Smoking Tobacco: Never Assessed Sex and Gender Information Value Date Recorded Sex Assigned at Not on file Gender Identity Not on file Sexual Orientation Not on file Plan of Treatment Health Maintenance Due Date Last Done Comments DTaP,Tdap,and Td Vaccines (1 - Tdap) 2016 Hepatitis B Vaccines (1 of 3 - 19+ 3-dose series) 2016 COVID-19 Vaccine (2023-2 5 season) 2023 Influenza Vaccine (#1) 2023 HIB Vaccines Aged Out No longer eligi ble based on patient's age to complete this topic HPV Vaccines Aged Out No longer eligi ble based on patient's age to complete this topic Hepatitis A Vaccines Aged Out No long er eligible based on patient's age to complete this topic IPV Vaccines Aged Out No longer eligi ble based on patient's age to complete this topic MMR Vaccines Aged Out No longer eligi ble based on patient's age to complete this topic Meningococcal ACWY Vaccine Aged Out N o longer eligible based on patient's age to complete this topic Pneumococcal Vaccine: Pediat rics (0 to 5 Years) and At-Risk Patients (6 to 64 Years) Aged Out No longer eligible b ased on patient's age to complete this topic RSV Immunization Patients Un cristina 20 months Aged Out No longer eligible b ased on patient's age to complete this topic Varicella Vaccines Aged Out No longer eligible based on patient's age to complete this topic
--- OUTSIDE RECORDS SUMMARY | 2024-03-26 10:21 | XMS_ITS | Clinical Summary ---
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 informational/ educational purposes only.) ?? HEPATITIS C ANTIBODY NON-REACT GATO NON-REACT GATO [facility] INDEX 0.02 <1.00 [facility] Comment: ?? HCV antibody was non-reactive. There is no laboratory ?? evidence of HCV infection. ?? In most cases, no further action is required. However, if recent HCV exposure is suspected, a test for HCV RNA (test code 83534) is suggested. ?? For additional information please refer to http://Outlisten/faq/XCT69p6 (This link is being provided for informational/ educational purposes only.) ?? HEPATITIS C ANTIBODY NON-REACT GATO NON-REACT GATO [facility] INDEX 0.02 <1.00 [facility] Comment: ?? HCV antibody was non-reactive. There is no laboratory ?? evidence of HCV infection. ?? In most cases, no further action is required. However, if recent HCV exposure is suspected, a test for HCV RNA (test code 31562) is suggested. ?? For additional information please refer to http://Outlisten/faq/RAL62m7 (This link is being provided for informational/ educational purposes only.) ?? 12/01/2019 3:58 PM EDT Sayra RENDON HISTORICAL/NON ORDERABLE LABS Final Result [facility] [address] * HIV 1/2 ANTIGEN/ANTIBODY,FOURTH GENERATION W/RFL (12/01/2019 3:58 PM EDT) HIV-1/2 ANTIGEN AND ANTIBODIES, 4TH GENERATION W/ REFLEX NON-REACT GATO NON-REACT GATO [facility] Comment: HIV-1 antigen and HIV-1/HIV-2 antibodies were not detected. There is no laboratory evidence of HIV infection. ?? PLEASE NOTE: This information has been disclosed to you from records whose confidentiality may be protected by state law. ??If your state requires such protection, then the state law prohibits you from making any further disclosure of the information without the specific written consent of the person to whom it pertains, or as otherwise permitted by law. A general authorization for the release of medical or other information is NOT sufficient for this purpose. ? For additional information please refer to http://[employer]/faq/WRD665 (This link is being provided for informational/ educational purposes only.) ? The performance of this assay has not been clinically validated in patients less than 2 years old. ?? HIV-1/2 ANTIGEN AND ANTIBODIES, 4TH GENERATION W/ REFLEX NON-REACT GATO NON-REACT G[facility]O [facility] Comment: HIV-1 antigen and HIV-1/HIV-2 antibodies were not detected. There is no laboratory evidence of HIV infection. ?? PLEASE NOTE: This information has been disclosed to you from records whose confidentiality may be protected by state law. ??If your state requires such protection, then the state law prohibits you from making any further disclosure of the information without the specific written consent of the person to whom it pertains, or as otherwise permitted by law. A general authorization for the release of medical or other information is NOT sufficient for this purpose. ? For additional information please refer to http://Outlisten/faq/LQZ690 (This link is being provided for informational/ educational purposes only.) ? The performance of this assay has not been clinically validated in patients less than 2 years old. ?? HIV-1/2 ANTIGEN AND ANTIBODIES, 4TH GENERATION W/ REFLEX NON-REACT GATO NON-REACT GATO [facility] Comment: HIV-1 antigen and HIV-1/HIV-2 antibodies were not detected. There is no laboratory evidence of HIV infection. ?? PLEASE NOTE: This information has been disclosed to you from records whose confidentiality may be protected by state law. ??If your state requires such protection, then the state law prohibits you from making any further disclosure of the information without the specific written consent of the person to whom it pertains, or as otherwise permitted by law. A general authorization for the release of medical or other information is NOT sufficient for this purpose. ? For additional information please refer to http://[employer]/faq/OEG440 (This link is being provided for informational/ educational purposes only.) ? The performance of this assay has not been clinically validated in patients less than 2 years old. ?? HIV-1/2 ANTIGEN AND ANTIBODIES, 4TH GENERATION W/ REFLEX NON-REACT GATO NON-REACT GATO [facility] Comment: HIV-1 antigen and HIV-1/HIV-2 antibodies were not detected. There is no laboratory evidence of HIV infection. ?? PLEASE NOTE: This information has been disclosed to you from records whose confidentiality may be protected by state law. ??If your state requires such protection, then the state law prohibits you from making any further disclosure of the information without the specific written consent of the person to whom it pertains, or as otherwise permitted by law. A general authorization for the release of medical or other information is NOT sufficient for this purpose. ? For additional information please refer to http://education.[employer]/faq/FVN866 (This link is being provided for informational/ educational purposes only.) ? The performance of this assay has not been clinically validated in patients less than 2 years old. ?? 12/01/2019 3:58 PM EDT us Sayra Partida LIQUOR CLERK LAB BLOOD ORDERABLES Final Res ult [facility] [address] from Last 3 Months or Most Recently Relevant to Health Maintenance Insurance [facility] C3 Care Teams Underground Drill Operator Relationship Specialty Start Date End Date Consuelo Shannon ANP [address] [place] [phone] PCP - General Family Medicine 10/25/21
--- OUTSIDE RECORDS SUMMARY | 2024-03-26 10:21 | XMS_ITS | Encounter Summary ---
Author Organization [employer] Address [address] [facility] 7t [place] [address] Care Team Providers Care Physician Obstetrician Name Role Phone Consuelo Shannon ANP Primary Care Provider [phone] Reason for Visit * Reason Comments Med Refill Encounter Details Date Type Department Care Team ([facility] st Contact Info) Description 11/24/2023 Refill [facility] [address] [place] [id number] Consuelo Shannon ANP [address] [place] [address] Social History Tobacco Use Types Packs/Day Years Used Date Smoking Tobacco: Never Assessed Sex and Gender Information Value Date Recorded Sex Assigned at Male 12/25/2021 10:14 AM EDT Legal Sex Male 10:14 AM EDT Gender Identity Male 12/25/2021 10:14 AM EDT Sexual Orientation Don't know 12/25/2021 10 :14 AM EDT documented as of this encounter Miscellaneous Notes * Telephone Encounter - Cindi Nair RN - 11/26/2023 12:01 PM EDT Call to Marlena Barraza regarding Pt medicaid insurance. When financial underwriter runs the information for insurance it shows as rejected. Medicaid # is [id number]. Pt information given and awaiting update. documented in this encounter Plan of Treatment Not on file documented as of this encounter Visit Diagnoses Not on filedocumented in this encounter Care Teams Physician Obstetrician Relationship Specialty Start Date End Date Consuelo Shannon ANP [address] [place] [address] PCP - General Family Medicine 10/25/21 documented as of this encounter
== END 2024-03-26 06:35 | disposition home or self-care (01) ==
LOC: CF 06:34
PROVIDERS: Visit Provider Internal Medicine
DX: M25.561 Pain in right knee (principal)
CPT/HCPCS: 20610; J7318; Q9967

== ENCOUNTER 2024-03-26 12:06 | Outpatient (AMB) | payer MEDICAID, SELFPAY ==
[2024-03-26 12:12] VITALS: BP 111/59; PULSE 89; O2SAT 100; BMI 24.7
--- NOTE | 2024-03-26 12:12 | A.OFFVIS_ITS ---
Vital Signs 03/26/24 12:12 Height 5 ft 4 in Weight 144 lb BMI 24.7 BP 111/59 L Blood Pressure Location Lt brachial Position Sitting Pulse 89 Pulse Source Pulse Oximeter Pulse Oximetry (%) 100 Oxygen Delivery Method Room Air Intake Visit Reasons: Right knee Durolane inj w/ fluoro Senior Behavioral Scientist Required: No Allergies No Known Allergies Allergy (Verified 03/26/24 12:13) Medication List - Last Reconciled 03/26/24 by Cherelle Alejandro, GAS STOVE SERVICER HELPER albuterol sulfate 90 mcg/actuation 2 puffs inhalation Q6H PRN ibuprofen 600 mg PO Q6H PRN oxycodone-acetaminophen 5-325 mg (Percocet) 1 tab PO Q4-6H PRN valacyclovir 1,000 mg PO DAILY PFSH Medical History Asthma Coma No known health problems Surgical History History of hernia repair (~01/17/24) H/O wisdom tooth extraction No pertinent past surgical history Social History (Updated 02/27/24 @ 14:47 by Sydnee Scanlon) Are you a primary senior resident care director to a significant other at home: No Do you presently have visiting nurse or other home services: No Alcohol intake: current Alcohol intake frequency: holidays/special occasions only Tobacco use type: Smokeless Tobacco e-Cigarette/Vaping Use: Currently Using Substance Use Type: Marijuana and Other Physical Exam Vital Signs: Last Vital Signs Pulse 89 03/26/24 12:12 BP 111/59 L 03/26/24 12:12 Pulse Ox 100 03/26/24 12:12 Oxygen Delivery Method Room Air 03/26/24 12:12 BMI result Body Mass Index 24.7 Office Procedures AMB Joint Injection/Aspiration Joint Injection/Aspiration Primary Site: right knee Prep: site was prepped using sterile technique Injected: 60 mg of and with 3 mL of (Durolane) Approach Used: anteromedial Procedure: The patient tolerated the procedure well Coding 87027 - Large joint (with fluoro) Additional procedure code (CPT) needed Office Meds Durolane 60 mg/3 mL intra-articular syringe Performing Provider: Bill Molina MD Performing Location: [facility] Administered by: Bill Molina MD on 03/26/24 13:09 Dose Route Admin Location Dispensed Lot Number Expiration Date NDC [employer] Supervisor 60 mg intra-articular 3 mL [id number] 07/25/26 97120-66897 [employer] Assessment & Plan Assessment & Plan (1) Right knee pain: Code(s): M25.561 - Pain in right knee Category: Medical Plan Patient is status post right knee durolane injection. Patient tolerated procedure well and was discharged home in stable condition with discharge instructions. All questions were answered. Orders: Orders FL guidance in treatment room Today Darlene Malhotra APRN, INVENTORY AUDITOR M25.561 - Pain in right knee AMB Joint Injection/Aspiration Today Bill Molina MD M25.561 - Pain in right knee Coding Level of Care Code Procedure Only Diagnoses Right knee pain M25.561 CPT Codes Coding - 63258 Large joint: 61132 - Large joint ([id number])
--- OUTSIDE RECORDS SUMMARY | 2024-03-26 15:58 | XMS_ITS | Clinical Summary ---
Author Organization [facility] ity Address [address] [place] [address] Care Team Providers Care Foreclosure Specialist Name Role Phone Unavailable Primary Care Provider [...]
--- OUTSIDE RECORDS SUMMARY | 2024-03-26 15:58 | XMS_ITS | Clinical Summary ---
Author Organization [employer] Address [address] [facility] 7t [place] [address] Care Team Providers Care Relocation Counselor Name Role Phone Consuelo Shannon Primary Care Provider [phone] Allergies No known active allergies Medications valACYclovir [...] nt, sequela 12/23/2023 Overview (12/23/2023): Seen at [facility], on 2018 sp PEA + cardiac arrest [...] (12/23/2023 12:00 PM EDT): Back on 2018, [facility] reviewed. Due to PEA and having seizures [...] Type Department Care Team Description 01/23/2024 Refill [facility] [address] [place] [address] Heather Mckeon MD 01/17/2024 Orders Only GENERIC EXTERNAL DATA DEPARTMENT Provider, Generic External Data 01/01/2024 Orders Only [facility] External Provider, [facility] 12/27/2023 10:30 AM EDT Office Visit [facility] [address] [place] [address] Consuelo Shannon ANP Screening examination for STI (Primary Dx); Acquired keratosis pilaris; Mild intermittent asthma without complication; Right knee pain, unspecified chronicity; Ligamentous laxity of left shoulder; Nicotine dependence due to vaping tobacco product 12/27/2023 Travel 12/25/2023 Telephone [facility] [address] [place] [address] Missy Schultz, KileyD from Last 3 Months [...] Opiate Screen Urine Not Detected Not Detect [facility] Comment:Opiate cut-off is 30 0 ng/mL.Positive results are unconfirmed and should not be used fornon-medical purposes. Barbiturates, Urine Not Detected Not Detect [facility] Comment:Barbiturate cut-off is 200 ng/mL.Positive results are unconfirmed and should not be used fornon-medical purposes. Phencyclidine Screen Urine POSITIVE(A) Not Detect [facility] Comment:Phencyclidine cut-of f is 25 ng/mL.Positive results are unconfirmed and should not be used fornon-medical purposes. Amphetamine Screen Urine Not Detected Not Detect [facility] Comment:Amphetamine cut-off is 1000 ng/mL.Positive results are unconfirmed and should not be used fornon-medical purposes. Benzodiazepines Screen Urine Not Detected Not Detect [facility] Comment:Benzodiazepine cut-o ff is 200 ng/mL.Positive results are unconfirmed and should not be used fornon-medical purposes. Cocaine Screen Urine Not Detected Not Detect [facility] Comment:Cocaine cut-off is 3 00 ng/mL.Positive results are unconfirmed and should not be used fornon-medical purposes. Cannabinoid Screen Urine Not Detected Not Detect [facility] Comment:Cannabinoid cut-off is 50 ng/mL.Positive results are unconfirmed and should not be used fornon-medical purposes. Methadone Screen, Urine Not Detected Not Detect ng/mL [facility] Comment:Methadone cut-off is 300 ng/mL.Positive results are unconfirmed and should not be used fornon-medical purposes. FENTANYL URINE Not Detected Not Detect [facility] Comment:Fentanyl cut-off is 1 ng/mL.Positive results are unconfirmed and should not be used fornon-medical purposes. Oxycodone Urine Screen Not Detected Not Detect ng/mL [facility] Comment:Oxycodone cut-off is 100 ng/mL.Positive results are unconfirmed and should not be used fornon-medical purposes. Buprenorphine Screen Not Detected Not Detect ng/mL [facility] Comment:Buprenorphine cut-of f is 5 ng/mL.Positive results are unconfirmed and should not be used fornon-medical purposes. 01/17/2024 12:2 1 PM EST 01/17/2024 12:24 PM EST us Generic External Data Provider LAB URINE ORDERAB LES Final Result [facility] [address] [place] [address] [phone] * CT Cervical Spine w/o Contrast (01/01/2024 7:29 AM EST) Anatomical Region Laterality Modality Spine, C-spine Computed Tomogra phy 01/01/2024 7:29 AM EST Narrative 01/01/2024 8:47 AM EST ? [facility] ?[address] ?[place] [address] ? CT Scan Report ? Signed ? Patient: Jacobo Jeronimo ?MR#: [id number] ?? 21 ? : 1995 ?Acct:[id number] ? Age/Sex: 28 / M ?ADM Date: 01/01/24 ? Loc: HO.ED ? Attending Dr: ? Ordering Physician: Cathleen Narvaez ?? Date of Service: 01/01/24 ?? Procedure(s): CT cervical spine wo IV con ?? Accession Number(s): [id number] ? cc: Cathleen Narvaez; [facility] ? EXAMINATION: ?? CT CERVICAL SPINE WITHOUT [...] DD/ 0729 ? TD/TT: 01/01/24 0750 ? Brine Tank Operator: ? Procedure Note Anuradha, Image - 01/01/[address] [place] [address] [address] Scan Report Signed Patient: Jacobo Jeronimo EMR#: [id number] [birth year] : 1995Acct:[id number] Age/Sex: 28 / MADM Date: 01/01/24 Loc: HO.ED Attending Dr: Ordering Physician: Cathleen Narvaez Date of Service: 01/01/24 Procedure(s): CT cervical spine wo IV con Accession Number(s): [id number] cc: Cathleen Narvaez; [facility] EXAMINATION: CT CERVICAL SPINE WITHOUT CONTRAST CLINICAL [...] 01/01/24 0844 DD/ 0729 TD/TT: 01/01/24 0750 Brine Tank Operator: [facility] External Provider IMG CT PROCEDURES Edited Result - Final * CT Sinus Facial Bones w/o Contrast (01/01/2024 6:53 AM EST) Anatomical Region Laterality Modality Computed Tomogra phy 01/01/2024 6:53 AM EST Narrative 01/01/2024 8:42 AM EST ? [facility] ?[address] ?[place] [address] ? CT Scan Report ? Signed ? Patient: Jeronimo,Jacobo E ?MR#: [id number] ?? [birth year] ? : 1995 ?Acct:[id number] ? Age/Sex: 28 / M ?ADM Date: 12/31/24 ? Loc: HO.ED ? Attending Dr: ? Ordering Physician: Cathleen Narvaez ?? Date of Service: 01/01/24 ?? Procedure(s): CT facial bones wo IV con ?? Accession Number(s): [id number] ? cc: Cathleen Narvaez; [facility] ? EXAMINATION: ?? CT FACIAL BONES WITHOUT [...] DD/ 0653 ? TD/TT: 01/01/24 0750 ? Brine Tank Operator: ? Procedure Note Donotuseinterpreter, Image - 01/01/[address] [address] [address] Scan Report Signed Patient: Jacobo Jeronimo EMR#: [id number] [birth year] : 1995Acct:[id number] Age/Sex: 28 / MADM Date: 01/01/24 Loc: HO.ED Attending Dr: Ordering Physician: Cathleen Narvaez Date of Service: 01/01/24 Procedure(s): CT facial bones wo IV con Accession Number(s): [id number] cc: Cathleen Narvaez; [facility] EXAMINATION: CT FACIAL BONES WITHOUT CONTRAST CLINICAL [...] OV> 01/01/24 0839 DD/ TD/TT: 01/01/24 0750 Brine Tank Operator: [facility] External Provider IMG CT PROCEDURES Edited Result - Final * CT Head w/o Contrast (01/01/2024 6:53 AM EST) Anatomical Region Laterality Modality Head, Neck Computed Tomogra phy 01/01/2024 6:53 AM EST Narrative 01/01/2024 8:33 AM EST ? [facility] ?[address] ?[place] [address] ? CT Scan Report ? Signed ? Patient: Jeronimo,Jacobo E ?MR#: [id number] ?? [birth year] ? : 1995 ?Acct:[id number] ? Age/Sex: 28 / M ?ADM Date: 01/01/24 ? Loc: HO.ED ? Attending Dr: ? Ordering Physician: Cathleen Narvaez ?? Date of Service: 01/01/24 ?? Procedure(s): CT head/brain wo IV con ?? Accession Number(s): [id number] ? cc: Cathleen Narvaez; [facility] ? EXAMINATION: ?? CT HEAD WITHOUT CONTRAST [...] DD/ 0653 ? TD/TT: 01/01/24 0750 ? Brine Tank Operator: ? Procedure Note Anuradha, Leena - 01/01/[address] [place] [address] [address] Scan Report Signed Patient: Jacobo Jeronimo EMR#: [id number] [birth year] : 1995Acct:[id number] Age/Sex: 28 / MADM Date: 01/01/24 Loc: HO.ED Attending Dr: Ordering Physician: Cathleen Narvaez Date of Service: 01/01/24 Procedure(s): CT head/brain wo IV con Accession Number(s): [id number] cc: Cathleen Narvaez; [facility] EXAMINATION: CT HEAD WITHOUT CONTRAST CLINICAL INFORMATION: [...] 01/01/24 0829 DD/ 0653 TD/TT: 01/01/24 0750 Brine Tank Operator: [facility] External Provider IM CT PROCEDURES Edited Result - Final * HEPATITIS C AB W/REFL TO HCV RNA, QN, PCR (12/01/2019 3:58 PM EDT) HEPATITIS C ANTIBODY NON-REACT GATO NON-REACT GATO [facility] INDEX 0.02 <1.00 [facility] Comment: ?? HCV antibody was non-reactive. There is no laboratory ?? evidence of HCV infection. ?? In most cases, no further action is required. However, if recent HCV exposure is suspected, a test for HCV RNA (test code 34550) is suggested. ?? For additional information please refer to http://education.[employer]/faq/XSD66b7 (This link is being provided for informational/ educational purposes only.) ?? HEPATITIS C ANTIBODY NON-REACT GATO NON-REACT GATO [facility] INDEX 0.02 <1.00 [facility] Comment: ?? HCV antibody was non-reactive. There is no laboratory ?? evidence of HCV infection. ?? In most cases, no further action is required. However, if recent HCV exposure is suspected, a test for HCV RNA (test code 61220) is suggested. ?? For additional information please refer to http://Samb[employer]/faq/BOA92a1 (This link is being provided for informational/ educational purposes only.) ?? HEPATITIS C ANTIBODY NON-REACT GATO NON-REACT GATO [facility] INDEX 0.02 <1.00 [facility] Comment: ?? HCV antibody was non-reactive. There is no laboratory ?? evidence of HCV infection. ?? In most cases, no further action is required. However, if recent HCV exposure is suspected, a test for HCV RNA (test code 94189) is suggested. ?? For additional information please refer to http://Samb[employer]/faq/CNQ22b1 (This link is being provided for informational/ educational purposes only.) ?? 12/01/2019 3:58 PM EDT Sayra RENDON HISTORICAL/NON ORDERABLE LABS Final Result [facility] [address] * HIV 1/2 ANTIGEN/ANTIBODY,FOURTH GENERATION W/RFL (12/01/2019 3:58 PM EDT) HIV-1/2 ANTIGEN AND ANTIBODIES, 4TH GENERATION W/ REFLEX NON-REACT GATO NON-REACT GATO [facility] Comment: HIV-1 antigen and HIV-1/HIV-2 [...] ? For additional information please refer to http://FiscalNote.[employer]/faq/VAN752 (This link is being provided for informational/ [...] ? For additional information please refer to http://Samb[employer]/faq/QXB062 (This link is being provided for informational/ [...] ? For additional information please refer to http://F[employer]Note.[employer]/faq/OUT777 (This link is being provided for informational/ educational purposes only.) ? The performance of this assay has not been clinically validated in patients less than 2 years old. ?? HIV-1/2 ANTIGEN AND ANTIBODIES, 4TH GENERATION W/ REFLEX NON-REACT GATO NON-REACT GATO [facility] Comment: HIV-1 antigen and HIV-1/HIV-2 [...] ? For additional information please refer to http://education.[employer]/faq/TSA886 (This link is being provided for informational/ educational purposes only.) ? The performance of this assay has not been clinically validated in patients less than 2 years old. ?? 12/01/2019 3:58 PM EDT us Sayra Partida CORPORATE COUNSEL LAB BLOOD ORDERABLES Final Res ult [facility] [address] from Last 3 Months or Most Recently Relevant to Health Maintenance Insurance [facility] C3 Care Teams Relocation Counselor Relationship Specialty Start Date End Date Consuelo Shannon ANP [address] [place] [phone] PCP - General Family Medicine 10/25/21
--- OUTSIDE RECORDS SUMMARY | 2024-03-26 15:58 | XMS_ITS | Encounter Summary ---
Author Organization [employer] Address [address] [facility] 7t [place] [address] Care Team Providers Care Time Analysis Clerk Name Role Phone Consuelo Shannon Primary Care Provider Reason for Visit * Reason Onset Date Comments Med Refill 05/01/2022 Encounter Details Date Type Department Care Team ([facility] st Contact Info) Description 05/01/2022 Telephone [facility] [address] [place] [address] Consuelo Shannon ANP [address] [place] [address] Med Refill Social History Tobacco Use Types [...] Miscellaneous Notes * Telephone Encounter - Jerica Sliva LPN - 05/01/2022 9:50 AM EST Medication was sent to [id number] on 01/08/22 Qty: 90 with 1 refill. * Telephone Encounter - Arnaldo Nguyen - 05/01/2022 9:39 AM EST Tc from pt requesting med refill Valacyclovir 1 gram tablet documented in this encounter Plan of Treatment Not on file documented as of this encounter Visit Diagnoses Not on filedocumented in this encounter Care Teams Time Analysis Clerk Relationship Specialty Start Date End Date Consuelo Shannon ANP [address] [place] [address] PCP - General Family Medicine 10/25/21 documented as of this encounter
--- OUTSIDE RECORDS SUMMARY | 2024-03-26 15:58 | XMS_ITS | Encounter Summary ---
Author Organization [employer] Address [address] [facility] 7t [place] [address] Care Team Providers Care Senior Energy Analyst Name Role Phone Consuelo Shannon ANP Primary Care Provider [phone] Reason for Visit * Reason Comments Med Refill Encounter Details Date Type Department Care Team ([facility] st Contact Info) Description 11/24/2023 Refill [facility] [address] [place] [address] Consuelo Shannon ANP [address] [place] [address] Social History Tobacco Use Types Packs/Day Years [...] Marlena Barraza regarding Pt medicaid insurance. When song writer runs the information for insurance it shows as rejected. Medicaid # is [id number]. Pt information given and awaiting update. documented in this encounter Plan of Treatment Not on file documented as of this encounter Visit Diagnoses Not on filedocumented in this encounter Care Teams Senior Energy Analyst Relationship Specialty Start Date End Date Consuelo Shannon ANP [address] [place] [address] PCP - General Family Medicine 10/25/21 documented as of this encounter
== END 2024-03-26 12:31 | disposition home or self-care (01) ==
LOC: HO.PMCPRC 12:06
PROVIDERS: Visit Provider Internal Medicine
DX: M25.561 Pain in right knee (principal)
CPT/HCPCS: 20610; 77002

== ENCOUNTER 2024-04-18 21:25 | Emergency (ER) | payer MEDICAID, SELFPAY ==
--- NOTE | 2024-04-18 21:31 | ED.GENADULT ---
HPI - General Adult General Chief complaint: Psychiatric Symptoms Stated complaint: PT TOOK PCP, NEEDS DETOX, AGITATED Time Seen by Provider: 04/18/24 21:28 Source: EMS Mode of arrival: EMS Limitations: other (Unwilling to talk) History of Present Illness ED Provider: Dr. Shelli Cruz HPI narrative: patient comes to the emergency room via ambulance from home. According to EMS, the patient just [facility] of [facility], use PCP, was acting erratic, patient's mother called the police and told him not to come back until he is clean. PD was called, they gave the patient the choice of going to penitentiary versus come to the emergency room. On arrival, patient is calm, not combative, not answering questions Related Data Home Medications ?Medication ?Instructions ?Recorded ?Confirmed valacyclovir 1 gram tablet 1,000 mg PO DAILY 01/17/24 03/26/24 albuterol sulfate 90 mcg/actuation 2 puff inhalation Q6H PRN 02/27/24 03/26/24 aerosol inhaler Previous Rx's ?Medication ?Instructions ?Recorded ibuprofen 600 mg tablet 600 mg PO Q6H PRN pain #25 tabs 01/17/24 oxycodone-acetaminophen 5 mg-325 1 tab PO Q4-6H PRN pain #20 tabs 01/17/24 mg tablet (Percocet) Allergies Allergy/AdvReac Type Severity Reaction Status Date / Time No Known Allergies Allergy Verified 04/18/24 21:36 Review of Systems Review of Systems: Yes Other [facility] Past Medical History Medical History Asthma Coma No known health problems Surgical History History of hernia repair (~01/17/24) H/O wisdom tooth extraction No pertinent past surgical history Social History Social History (Updated 02/27/24 @ 14:47 by Sydnee Scanlon) Are you a primary summer child caregiver to a significant other at home: No Do you presently have visiting nurse or other home services: No Alcohol intake: current Alcohol intake frequency: holidays/special occasions only Tobacco use type: Smokeless Tobacco e-Cigarette/Vaping Use: Currently Using Use of substances other than those prescribed or required for medical reasons: Yes Substance Use Type: Marijuana and Other Advance Directives: No Advance Directives Information Provided: No Do you have a plan to hurt others: No Plan Physical Exam ED Vital Signs: Vital Signs - 24 hr 04/18/24 21:33 04/18/24 21:39 Temperature 98.4 F Pulse Rate 85 Respiratory Rate 16 Blood Pressure 167/71 H Pulse Oximetry 100 Oxygen Delivery Method Room Air Room Air BMI result Body Mass Index 36.4 Const Other: Appearance: Alert. No acute distress. Eyes: Pupils equal, round and reactive to light. ENT: Pharynx normal. Neck: Normal inspection. Neck supple. No lymph nodes noted. No crepitus CVS: Normal heart rate and rhythm. Pulses normal. Normal S1 and S2 Respiratory: No respiratory distress. Breath sounds normal. No Wheezing. No rales Abdomen: Soft and nontender. No rigidity. No distention. Skin: Skin warm and dry. Normal skin color. Normal skin turgor. Extremities: No lower extremity edema. No Lacerations. No Rash Neuro: Oriented X 3. No motor deficit. No sensory deficit. Moving all extremities. No slurred speech. CN 2 through 12 grossly intact Psych: calm, following directions, not answering questions Course Course Course Narrative: basic labs pending Medical Decision Making Medical Decision Making MDM Narrative: patient's hematology and chemistry did not show any significant abnormality. Patient more calm, cooperative, answering questions, patient is adamant that he is not SI or HI. Patient states that his significant other with a picking him up and he feels comfortable being discharged. all of patient's vitals stable. Patient calm, cooperative, no SI or HI, section 12 not indicated. She denies hallucinations. Patient ready for discharge at this time, 23:45 Differential Diagnosis Differential Diagnoses: The differential diagnosis associated with the presentation includes ( polysubstance abuse) Lab Data 04/18/24 21:58 04/18/24 21:58 Labs: Lab Results 04/18/24 Range/Units 21:58 WBC 9.6 (4.8-10.8) X10*3/uL RBC 4.71 (4.60-5.80) X10*6/uL Hgb 14.8 (14.0-18.0) g/dl Hct 43.1 (42.0-52.0) % MCV 91.5 (80.0-98.0) fL MCH 31.4 (27.0-33.0) pg MCHC 34.3 (31.0-36.0) g/dl RDW 12.6 (11.0-16.0) % Plt Count 196 (160-400) X10*3/uL MPV 12.0 (9.4-12.4) fL Immature Gran % (Auto) 0.3 (0.0-0.4) % Neut % (Auto) 73.6 H (45-73) % Lymph % (Auto) 17.8 L (20-40) % Larue % (Auto) 7.6 (2-11) % Eos % (Auto) 0.3 (0-4) % Baso % (Auto) 0.4 (0-2) % Lymph # (Auto) 1.7 (1.2-4.9) X10*3/uL Larue # (Auto) 0.7 (0.1-1.2) X10*3/uL Eos # (Auto) 0.0 (0.0-0.4) X10*3/uL Baso # (Auto) 0.0 (0.0-0.2) X10*3/uL Abs Immat Gran (auto) 0.03 (0.00-0.03) X10*3/uL Absolute Neuts (auto) 7.0 (2.0-8.3) x10*3/uL Absolute Nucleated RBC 0.000 (0.0-0.012) X10*3/uL Nucleated RBC % (auto) 0.0 (0.0-0.2) /100WBC Sodium 144 (135-145) mmol/L Potassium 3.9 (3.3-5.1) mmol/L Chloride 108 (96-108) mmol/L Carbon Dioxide 27 (22-29) mmol/L Anion Gap 13 (12-20) BUN 15 (9-16) mg/dL Creatinine 0.93 (0.5-1.4) mg/dL Estim Creat Clear Calc 116.1 Estimated GFR > 60 Random Glucose 83 (60-115) mg/dL Calcium 9.1 (8.4-10.2) mg/dL Total Bilirubin 0.3 (0.0-1.0) mg/dL Direct Bilirubin 0.1 (0.0-0.5) mg/dL AST 38 H (5-37) U/L ALT 29 (0-40) U/L Alkaline Phosphatase 73 (39-117) U/L Total Protein 7.7 (6.5-8.0) g/dL Albumin 4.4 (3.5-5.0) g/dL Ethyl Alcohol < 10 mg/dL Discharge Plan Discharge Clinical Impression: PCP abuse Patient Disposition: Home, Self-Care Instructions: Polysubstance Abuse (ED) Additional Instructions: Please follow-up with your primary care physician tomorrow. If you have any worsening or new symptoms, please return to the emergency room or call 911 Prescriptions: No Action oxycodone-acetaminophen [Percocet] 5-325 mg tablet 1 tab PO Q4-6H PRN (Reason: pain) Qty: 20 0RF Rx Instructions: Partial Fill upon patient request. ibuprofen 600 mg tablet 600 mg PO Q6H PRN (Reason: pain) Qty: 25 0RF valacyclovir 1 gram tablet 1,000 mg PO DAILY albuterol sulfate 90 mcg/actuation HFA aerosol inhaler 2 puff inhalation Q6H PRN Interventions: Walsh-Suicide Risk Severity Scale Last Done: 04/18/24 22:56 Print Language: Malay
[2024-04-18 21:33] VITALS: BMI 36.4
[2024-04-18 21:39] VITALS: BP 167/71; PULSE 85; RESP 16; TEMP 36.9; O2SAT 100
[2024-04-18 22:03] LABS: MANUAL DIFF FLAG NO
[2024-04-18 22:04] LABS: Basophils Percent Auto 0.4 % (0-2); Eosinophils Percent Auto 0.3 % (0-4); Hematocrit 43.1 % (42.0-52.0); Hemoglobin 14.8 g/dl (14.0-18.0); Imm Gran Abs Auto 0.03 X10*3/uL (0.00-0.03); Imm Gran Pct Auto 0.3 % (0.0-0.4); Lymphocytes Absolute Auto 1.7 X10*3/uL (1.2-4.9); Lymphocytes Percent Auto 17.8 % (20-40); Mean Corpuscular HGB Conc 34.3 g/dl (31.0-36.0); Mean Corpuscular Hemoglobin 31.4 pg (27.0-33.0); Mean Corpuscular Volume 91.5 fL (80.0-98.0); Monocytes Absolute Auto 0.7 X10*3/uL (0.1-1.2); Monocytes Percent Auto 7.6 % (2-11); Neutrophils Percent Auto 73.6 % (45-73); Platelet Count 196 X10*3/uL (160-400); Red Blood Count 4.71 X10*6/uL (4.60-5.80); Red Cell Distribution Width 12.6 % (11.0-16.0); White Blood Count 9.6 X10*3/uL (4.8-10.8)
--- OUTSIDE RECORDS SUMMARY | 2024-04-18 22:20 | XMS_ITS | Encounter Summary ---
Author Organization [employer] Address [address] [facility] 7t [place] [address] Care Team Providers Care Fingernail Sculpturer Name Role Phone Consuelo Shannon Primary Care Provider [phone] Reason for Visit * Reason Onset Date Comments Med Refill 05/01/2022 Encounter Details Date Type Department Care Team ([facility] st Contact Info) Description 05/01/2022 Telephone [facility] [address] [place] [address] Consuelo Shannon ANP [address] [place] [address] Med Refill Social History Tobacco Use Types [...] 9:50 AM EST Medication was sent to [id number] on 01/08/22 Qty: 90 with 1 refill. * Telephone Encounter - Arnaldo Nguyen - 05/01/2022 9:39 AM EST Tc from pt requesting med refill Valacyclovir 1 gram tablet documented in this encounter Plan of Treatment Not on file documented as of this encounter Visit Diagnoses Not on filedocumented in this encounter Care Teams Fingernail Sculpturer Relationship Specialty Start Date End Date Consuelo Shannon ANP [address] [place] [address] PCP - General Family Medicine 10/25/21 documented as of this encounter
--- OUTSIDE RECORDS SUMMARY | 2024-04-18 22:20 | XMS_ITS | Encounter Summary ---
Author Organization [employer] Address [address] [facility] 7t [place] [address] Care Team Providers Care Manager Auto Name Role Phone Consuelo Shannon ANP Primary Care Provider [phone] Reason for Visit * Reason Comments Med Refill Encounter Details Date Type Department Care Team ([facility] st Contact Info) Description 11/24/2023 Refill [facility] MEDICINE [address] [place] [address] Consuelo Shannon ANP [address] [place] [address] Social History Tobacco Use Types Packs/Day Years [...] Marlena Barraza regarding Pt medicaid insurance. When assembly instructions writer runs the information for insurance it shows as rejected. Medicaid # is [id number]. Pt information given and awaiting update. documented in this encounter Plan of Treatment Not on file documented as of this encounter Visit Diagnoses Not on filedocumented in this encounter Care Teams Manager Auto Relationship Specialty Start Date End Date Consuelo Shannon ANP [address] [place] [address] PCP - General Family Medicine 10/25/21 documented as of this encounter
--- OUTSIDE RECORDS SUMMARY | 2024-04-18 22:20 | XMS_ITS | Clinical Summary ---
Author Organization [employer] Address [address] [facility] 7t [place] [address] Care Team Providers Care Supply Tech Name Role Phone Consuelo Shannon Primary Care Provider [phone] Allergies No known active allergies Medications valACYclovir [...] nt, sequela 12/23/2023 Overview (12/23/2023): Seen at [facility], on 2018 sp PEA + cardiac [...] (12/23/2023 12:00 PM EDT): Back on 2018, [facility] reviewed. Due to PEA and having [...] Encounters Date Type Department Care Team Description 04/18/2024 Orders Only GENERIC EXTERNAL DATA DEPARTMENT Provider, Generic External Data 01/23/2024 Refill [facility] [address] [place] [address] Heather Mckeon MD 01/17/2024 Orders Only GENERIC EXTERNAL DATA DEPARTMENT Provider, Generic External Data from Last 3 Months Immunizations Name Administration [...] Comments Depression Screening 1997 SDOH Screening 1997 Alcohol/Substance Use Screening 2009 Family Planning (PISQ) 2012 Pneumococcal Vaccine: Pediatrics (0 to 5 Years) and At-Risk Patients (6 to 49) Years) (1 of 2 - PCV) 2016 DTaP/Tdap/Td Vaccines (6 - Td or Tdap) 11/28/2020 11/28/2010, 02/11/2000, 06/16/1998, Additional history exists COVID-19 Vaccine ( - season) 2023 Tobacco Screening 12/26/2024 12/27/2023 Zoster [...] Procedure Name Priority Date/Time Associated Diagnosis Comments CBC WITH AUTO DIFFERENTIAL Routine 04/18/2024 9:58 PM EST DRUG MONITOR, PANEL 1, SCREEN, URINE Routine 01/17/2024 12:21 PM EST ZZZ HISTORICAL HEPATITIS C AB W/REFL TO HCV RNA, QN, PCR Routine 12/01/2019 3:58 PM EDT HIV 1/2 ANTIGEN/ANTIBODY, FOURTH GENERATION W/RFL Routine 12/01/2019 3:58 PM EDT from Last 3 Months or Most Recently Relevant to Health Maintenance Results * (ABNORMAL) CBC auto differential (04/18/2024 9:58 PM EST) White Blood Count 9.6 4.8 - 10.8 X10*3/uL [facility] Red Blood Count 4.71 4.60 - 5.80 X10*6/uL [facility] Hemoglobin 14.8 14.0 - 18.0 g/dl [facility] Hematocrit 43.1 42.0 - 52.0 % [facility] Mean Corpuscular Volume 91.5 80.0 - 98.0 fL [facility] Mean Corpuscular Hemoglobin 31.4 27.0 - 33.0 pg [facility] Mean Corpuscular HGB Conc 34.3 31.0 - 36.0 g/dl [facility] Red Cell Distribution Width 12.6 11.0 - 16.0 % [facility] Platelet Count 196 160 - 400 X10*3/uL [facility] Mean Platelet Volume 12.0 9.4 - 12.4 fL [facility] Neutrophils Percent Auto 73.6(H) 45 - 73 % [facility] Imm Gran Pct Auto 0.3 0.0 - 0.4 % [facility] Lymphocytes Percent Auto 17.8(L) 20 - 40 % [facility] Monocytes Percent Auto 7.6 2 - 11 % [facility] Eosinophils Percent Auto 0.3 0 - 4 % [facility] Basophils Percent Auto 0.4 0 - 2 % [facility] NRBC Pct Auto 0.0 0.0 - 0.2 /100WBC [facility] Neutrophils Absolute Auto 7.0 2.0 - 8.3 x10*3/uL [facility] Imm Gran Abs Auto 0.03 0.00 - 0.03 X10*3/uL [facility] Lymphocytes Absolute Auto 1.7 1.2 - 4.9 X10*3/uL [facility] Monocytes Absolute Auto 0.7 0.1 - 1.2 X10*3/uL [facility] Eosinophils Absolute Auto 0.0 0.0 - 0.4 X10*3/uL [facility] Basophils Absolute Auto 0.0 0.0 - 0.2 X10*3/uL [facility] NRBC Abs Auto 0.000 0.0 - 0.012 X10*3/uL [facility] 04/18/2024 9:58 PM EST 04/18/2024 10:01 PM EST us Generic External Data Provider LAB BLOOD ORDERAB LES Final Result [facility] [address] [place] [address] [phone] * (ABNORMAL) Drug Monitoring, Panel 1, Screen, Urine (01/17/2024 12:21 PM EST) Opiate Screen Urine Not Detected Not Detect [facility] Comment:Opiate cut-off is 30 0 ng/mL.Positive results are unconfirmed and should not be used fornon-medical purposes. Barbiturates, Urine Not Detected Not Detect [facility] Comment:Barbiturate cut-off is 200 ng/mL.Positive results are unconfirmed and should not be used fornon-medical purposes. Phencyclidine Screen Urine POSITIVE(A) Not Detect [facility] Comment:Phencyclidine cut-of f is 25 ng/mL.Positive results are unconfirmed and should not be used fornon-medical purposes. Amphetamine Screen Urine Not Detected Not Detect [facility] Comment:Amphetamine cut-off is 1000 ng/mL.Positive results are unconfirmed and should not be used fornon-medical purposes. Benzodiazepines Screen Urine Not Detected Not Detect [facility] Comment:Benzodiazepine cut-o ff is 200 ng/mL.Positive results are unconfirmed and should not be used fornon-medical purposes. Cocaine Screen Urine Not Detected Not Detect [facility] Comment:Cocaine cut-off is 3 00 ng/mL.Positive results are unconfirmed and should not be used fornon-medical purposes. Cannabinoid Screen Urine Not Detected Not Detect [facility] Comment:Cannabinoid cut-off is 50 ng/mL.Positive results are unconfirmed and should not be used fornon-medical purposes. Methadone Screen, Urine Not Detected Not Detect ng/mL [facility] Comment:Methadone cut-off is 300 ng/mL.Positive results are unconfirmed and should not be used fornon-medical purposes. FENTANYL URINE Not Detected Not Detect [facility] Comment:Fentanyl cut-off is 1 ng/mL.Positive results are unconfirmed and should not be used fornon-medical purposes. Oxycodone Urine Screen Not Detected Not Detect ng/mL [facility] Comment:Oxycodone cut-off is 100 ng/mL.Positive results are unconfirmed and should not be used fornon-medical purposes. Buprenorphine Screen Not Detected Not Detect ng/mL [facility] Comment:Buprenorphine cut-of f is 5 ng/mL.Positive results are unconfirmed and should not be used fornon-medical purposes. 01/17/2024 12:2 1 PM EST 01/17/2024 12:24 PM EST us Generic External Data Provider LAB URINE ORDERAB LES Final Result [facility] [address] [place] [phone] * HEPATITIS C AB W/REFL TO HCV RNA, QN, PCR (12/01/2019 3:58 PM EDT) HEPATITIS C ANTIBODY NON-REACT GATO NON-REACT GATO [facility] INDEX 0.02 <1.00 [facility] Comment: ?? HCV antibody was non-reactive. There is no laboratory ?? evidence of HCV infection. ?? In most cases, no further action is required. However, if recent HCV exposure is suspected, a test for HCV RNA (test code 73827) is suggested. ?? For additional information please refer to http://[employer].Muzeek/faq/DBD28e6 (This link is being provided for informational/ educational purposes only.) ?? HEPATITIS C ANTIBODY NON-REACT GATO NON-REACT GATO [facility] INDEX 0.02 <1.00 [facility] Comment: ?? HCV antibody was non-reactive. There is no laboratory ?? evidence of HCV infection. ?? In most cases, no further action is required. However, if recent HCV exposure is suspected, a test for HCV RNA (test code 99239) is suggested. ?? For additional information please refer to http://[employer].Muzeek/faq/FAI47f7 (This link is being provided for informational/ educational purposes only.) ?? HEPATITIS C ANTIBODY NON-REACT GATO NON-REACT GATO [facility] INDEX 0.02 <1.00 [facility] Comment: ?? HCV antibody was non-reactive. There is no laboratory ?? evidence of HCV infection. ?? In most cases, no further action is required. However, if recent HCV exposure is suspected, a test for HCV RNA (test code 39698) is suggested. ?? For additional information please refer to http://[employer].Muzeek/faq/BXZ36z6 (This link is being provided for informational/ educational purposes only.) ?? 12/01/2019 3:58 PM EDT Sayra Partida GOAT DRIVER HISTORICAL/NON ORDERABLE LABS Final Result [facility] [address] [place] [address], * HIV 1/2 ANTIGEN/ANTIBODY,FOURTH GENERATION W/RFL (12/01/2019 [...] ? For additional information please refer to http://[employer].Muzeek/faq/WVX851 (This link is being provided for informational/ educational purposes only.) ? The performance of this assay has not been clinically validated in patients less than 2 years old. ?? HIV-1/2 ANTIGEN AND ANTIBODIES, 4TH GENERATION W/ REFLEX NON-REACT AGTO NON-REACT GATO [facility] Comment: [...] ? For additional information please refer to http://[employer].Muzeek/faq/NQO054 (This link is being provided for informational/ [...] ? For additional information please refer to http://[employer]/faq/JCZ134 (This link is being provided for informational/ [...] ? For additional information please refer to http://[employer].Muzeek/faq/TWX955 (This link is being provided for informational/ educational purposes only.) ? The performance of this assay has not been clinically validated in patients less than 2 years old. ?? 12/01/2019 3:58 PM EDT us Sayra Partida GOAT DRIVER LAB BLOOD ORDERABLES Final Res ult [facility] [address] from Last 3 Months or Most Recently Relevant to Health Maintenance Insurance [employer] Care Teams Supply Tech Relationship Specialty Start Date End Date Consuelo Shannon ANP [address] [place] [address] PCP - General Family Medicine 10/25/21
--- OUTSIDE RECORDS SUMMARY | 2024-04-18 22:20 | XMS_ITS | Encounter Summary ---
Author Organization [employer] Address [address] [facility] [address] [place] [address] Care Team Providers Care Machine Egg Washer Name Role Phone Consuelo Shannon Primary Care Provider [phone] Encounter Details Date Type Department Care Team ([facility] Contact Info) Description 04/18/2024 Orders Only GENERIC EXTERNAL DATA DEPARTMENT Provider, Generic External Data Social History Tobacco Use Types Packs/Day Years Used Date Smoking Tobacco: Former Cigarettes Passive Smoke Exposure: Never Smokeless Tobacco: Never Housing Stability Answer Date Recorded What is [...] AM EDT documented as of this encounter Plan of Treatment Not on file documented as of this encounter Procedures Procedure Name Priority Date/Time Associated Diagnosis Comments CBC WITH AUTO DIFFERENTIAL Routine 04/18/2024 9:58 PM EST documented in this encounter Results * (ABNORMAL) CBC auto differential (04/18/2024 9:58 PM EST) White Blood Count 9.6 4.8 - 10.8 X10*3/uL [facility] Red Blood Count 4.71 4.60 - 5.80 X10*6/uL [facility] Hemoglobin 14.8 14.0 - 18.0 g/dl [facility] Hematocrit 43.1 42.0 - 52.0 % [facility] Mean Corpuscular Volume 91.5 80.0 - 98.0 fL [facility] Mean Corpuscular Hemoglobin 31.4 27.0 - 33.0 pg [facility] Mean Corpuscular HGB Conc 34.3 31.0 - 36.0 g/dl [facility] Red Cell Distribution Width 12.6 11.0 - 16.0 % [facility] Platelet Count 196 160 - 400 X10*3/uL [facility] Mean Platelet Volume 12.0 9.4 - 12.4 fL [facility] Neutrophils Percent Auto 73.6(H) 45 - 73 % [facility] Imm Gran Pct Auto 0.3 0.0 - 0.4 % [facility] Lymphocytes Percent Auto 17.8(L) 20 - 40 % [facility] Monocytes Percent Auto 7.6 2 - 11 % [facility] Eosinophils Percent Auto 0.3 0 - 4 % [facility] Basophils Percent Auto 0.4 0 - 2 % [facility] NRBC Pct Auto 0.0 0.0 - 0.2 /100WBC [facility] Neutrophils Absolute Auto 7.0 2.0 - 8.3 x10*3/uL [facility] Imm Gran Abs Auto 0.03 0.00 - 0.03 X10*3/uL [facility] Lymphocytes Absolute Auto 1.7 1.2 - 4.9 X10*3/uL [facility] Monocytes Absolute Auto 0.7 0.1 - 1.2 X10*3/uL [facility] Eosinophils Absolute Auto 0.0 0.0 - 0.4 X10*3/uL [facility] Basophils Absolute Auto 0.0 0.0 - 0.2 X10*3/uL [facility] NRBC Abs Auto 0.000 0.0 - 0.012 X10*3/uL [facility] 04/18/2024 9:58 PM EST 04/18/2024 10:01 PM EST us Generic External Data Provider LAB BLOOD ORDERAB LES Final Result [facility] [address] [place] [phone] [phone] documented in this encounter Visit Diagnoses Not on filedocumented in this encounter Care Teams Machine Egg Washer Relationship Specialty Start Date End Date Consuelo Shannon ANP [address] [place] [address] PCP - General Family Medicine 10/25/21 documented as of this encounter
[2024-04-18 22:23] LABS: Alanine Aminotransferase 29 U/L (0-40); Albumin Level 4.4 g/dL (3.5-5.0); Alkaline Phosphatase 73 U/L (39-117); Anion Gap 13 (12-20); Aspartate Amino Transferase 38 U/L (5-37); Bilirubin Direct 0.1 mg/dL (0.0-0.5); Bilirubin Total 0.3 mg/dL (0.0-1.0); Blood Urea Nitrogen 15 mg/dL (9-16); Calcium 9.1 mg/dL (8.4-10.2); Carbon Dioxide 27 mmol/L (22-29); Chloride 108 mmol/L (96-108); Creatinine Clr Calc Pharmacy 116.1; Estimated Glomerular Filt Rate > 60; Ethanol < 10 mg/dL; Glucose Random 83 mg/dL (60-115); Potassium 3.9 mmol/L (3.3-5.1); Sodium 144 mmol/L (135-145); Total Protein 7.7 g/dL (6.5-8.0)
[2024-04-18 23:57] VITALS: BP 134/63; PULSE 75; RESP 19; TEMP 36.7; O2SAT 97
== END 2024-04-19 00:04 | disposition home or self-care (01) ==
PROVIDERS: Emergency Provider Emergency Medicine; PCP Nurse Practitioner Primary Care
DX: F16.10 Hallucinogen abuse, uncomplicated (principal); R45.1 Restlessness and agitation; J45.909 Unspecified asthma, uncomplicated; Z79.899 Other long term (current) drug therapy
CPT/HCPCS: 36415; 80048; 80076; 80307; 85025; 99284

== ENCOUNTER 2024-04-23 12:57 | Outpatient (AMB) | payer MEDICAID, SELFPAY ==
--- NOTE | 2024-04-23 13:03 | A.OFFVIS_ITS ---
Vital Signs 04/23/24 13:06 Height 5 ft 2 in Weight 177 lb 8 oz BMI 32.5 BP 122/73 Blood Pressure Location Lt brachial Position Sitting Pulse 60 Pulse Source Pulse Oximeter Pulse Oximetry (%) 98 Oxygen Delivery Method Room Air Intake Visit Reasons: s/p right knee Durolane Intake Note: Pain today 0/10 Edger Technician Required: No Accompanied by: Self / Same As Patient Allergies No Known Allergies Allergy (Verified 04/23/24 13:07) HPI Comments Details: Patient presents today to assess response to right knee Durolane injection on 03/26/[address] Molina. Patient reports 85-90% ongoing pain relief since procedure with significant improvement in his activities and functioning, mobility, sleep and social interactions. Patient reports he was able to restart home gym workout and light weight lifting 2 weeks ago. Denies pain with climbing stairs since injection. Denies any recent cough, cold, infection, fever or other significant changes in medical history since last office visit. Past Procedures: 03/26/24: Right knee Durolane [id number] ongoing pain relief PRIOR: Patient is a 28 years old male presents today for initial evaluation for right knee pain. He was seen at [facility] on 11/20/23 for right knee pain and knee locking after he sustained an aggressive sports injury while incarcerated. Patient was evaluated by [facility] in November 2023 and was sent for formal PT and completed right knee MRI which showed proximal patellar tendinopathy with a small undersurface partial tear at the patellar insertion. Patient was deemed non-surgical per Orthopedics and was referred to our office for further evaluation. Patient reports his right knee pain is localized to anterior aspect and lateral joint line. Pain increases with walking, exercises, jogging, climbing stairs, or sleeping. He is missing working out in gym. Patient reports PT has been partially beneficial which he completed in November-December,, total 7 sessions. Pain affects his ADLs, mood, sleep, mobility and social interactions. Denies any fever or chills, infection, rash, weakness, locking or instability, gait disturbances, bladder or bowel dysfunction or saddle anesthesia. Location: Right knee pain, anterior knee pain with medial and lateral joint line TTP Duration: Chronic pain >8 months Characteristics of symptom or complaint: Achign, burning, stabbing, throbbing, sharp, burning Aggravating or associated factors: Walking, climbing stairs, crossing leg, sleep, ADLs, mobility Relieving factors: Percocet, NSAIDs, cold/heat, rest, activity modifications, lidocaine patch Treatment: PT, HEP, elevation, rest PFSH Medical History Asthma Coma No known health problems Surgical History History of hernia repair (~01/17/24) H/O wisdom tooth extraction No pertinent past surgical history Social History Are you a primary skin care specialist to a significant other at home: No Do you presently have visiting nurse or other home services: No Alcohol intake: current Alcohol intake frequency: holidays/special occasions only Tobacco use type: Smokeless Tobacco e-Cigarette/Vaping Use: Currently Using Substance Use Type: Marijuana and Other Review of Systems Const All systems reviewed & are unremarkable except as noted in HPI and below Physical Exam Vital Signs: Last Vital Signs Pulse 60 04/23/24 13:06 BP 122/73 04/23/24 13:06 Pulse Ox 98 04/23/24 13:06 Oxygen Delivery Method Room Air 04/23/24 13:06 BMI result Body Mass Index 32.5 General: Appears afebrile. No acute distress. Alert and oriented. Mood and affect appropriate. Follows and participates in conversation appropriately. Respiratory effort is unlabored. No cough. Able to transition from sit to stand unassisted. Ambulates with bilaterally normal heel strike and toe off. Extrem General: Yes capillary refill normal, Yes no clubbing, cyanosis or edema and Yes no calf tenderness Right lower extremity: knee Details: normal to inspection, tenderness (minimal) Location: of the patella and of the lateral joint line and normal ROM; no swelling and no crepitus Results Reviewed Results Reviewed: MR RIGHT KNEE WITHOUT CONTRAST 02/05/24 CLINICAL INFORMATION: Unspecified internal derangement of right knee M23.91. Fell a few times. Pain since april 2023. COMPARISON: XR Right Knee 11/20/2023 TECHNIQUE: MRI of the knee without contrast was performed using routine sequences on a high-field scanner. FINDINGS: MENISCI: Medial Meniscus: Intact Lateral Meniscus: Intact LIGAMENTS: Cruciate: Intact Collateral: Intact EXTENSOR MECHANISM: Proximal patellar tendinopathy with a small undersurface partial tear at the patellar insertion. ARTICULAR CARTILAGE/BONE: Patellofemoral Compartment: Normal Medial Compartment: Minimal cartilage signal heterogeneity of the weightbearing femoral condyle. Lateral Compartment: Normal JOINT FLUID AND BURSAE: Normal IMPRESSION: 1. No meniscal tear. 2. Proximal patellar tendinopathy with a small undersurface partial tear at the patellar insertion. Assessment & Plan Assessment & Plan (1) Internal derangement of right knee: Code(s): M23.91 - Unspecified internal derangement of right knee Category: Medical (2) Right knee pain: Code(s): M25.561 - Pain in right knee Category: Medical (3) Tendinopathy of patella: Code(s): M67.969 - Unspecified disorder of synovium and tendon, unspecified lower leg Category: Medical Plan Patient is one month status post right knee Durolane injection with good results. Patient is aware that he can not receive another injection in this area for another three months. Patient is aware to monitor for side effects. Previously discussed longer term pain relief interventional treatments for chronic right knee pain including Sprint PNS trial and genicular RFA procedures. All questions were answered and the patient is in agreement of plan. Follow-up as needed. Coding Level of Care Code Est Pt Level 3 (82401) Complex EM visit Add On G2211 Diagnoses Internal derangement of right knee M23.91 Right knee pain M25.561 Tendinopathy of patella M67.969
[2024-04-23 13:06] VITALS: BP 122/73; PULSE 60; O2SAT 98; BMI 32.5
--- OUTSIDE RECORDS SUMMARY | 2024-04-23 15:23 | XMS_ITS | Clinical Summary ---
Author Organization [employer] Address [address] [facility] [address] [place] [address] Care Team Providers Care Director Of Food And Nutrition Name Role Phone Consuelo Shannon Primary Care Provider [phone] Allergies No known active allergies Medications valACYclovir [...] nt, sequela 12/23/2023 Overview (12/23/2023): Seen at [facility], on 2017 sp PEA + cardiac arrest that required ICU stay with intubation for few days and chest tube placement, he had seizure activity at the time but HE DOESN'T RECALL HAVING SEIZURES SINCE HE WAS DISCHARGED. He also had cardiac cath on 08/2017 that was normal (had EF 35%, apparently due to stunned myocardium) Assessment & Plan (12/23/2023 12:00 PM EDT): Back on 2017, [facility] reviewed. Due to PEA and having [...] Encounters Date Type Department Care Team Description 04/20/2024 Patient Outreach [facility] [address] [place] [address] Consuelo Shannon ANP Care Coordination (CM/CHW outreach) 04/20/2024 Telephone [facility] [address] [place], [place] [phone] Consuelo Shannon ANP Care Management (C3CM- chart review) 04/18/2024 Orders Only GENERIC EXTERNAL DATA DEPARTMENT Provider, Generic External Data 01/23/2024 Refill [facility] [address] [place] [address] Heather Mckeon MD from Last 3 Months Immunizations Name Administration Dates Next Due DTaP 02/11/2000, 9,1997,07/13,1997 HPV, Quadrivalent 03/15/2011,08/14/2010,02/24/20 10 Hep A, ped/adol, 2 dose 08/15/2007,07/19/2006 Hep B, Adolescent or Pediatric 1997,1997,1997 Hep B, adult 09/07/2017 Hib ([facility]) 06/16/1998, 8,1997,05/18 IPV 02/10/2003,1997,1997 Influenza injectable quadriv [...] AUTO DIFFERENTIAL Routine 04/18/2024 9:58 PM EST [facility] HISTORICAL HEPATITIS C AB W/REFL TO HCV RNA, QN, PCR Routine 12/01/2019 3:58 PM EDT HIV 1/2 ANTIGEN/ANTIBODY, FOURTH GENERATION W/RFL Routine 12/01/2019 3:58 PM EDT from Last 3 Months or Most Recently Relevant to Health Maintenance Results * (ABNORMAL) CBC auto differential (04/18/2024 9:58 PM EST) White Blood Count 9.6 4.8 - 10.8 X10*3/uL [facility] Red Blood Count 4.71 4.60 - 5.80 X10*6/uL [facility] Hemoglobin 14.8 14.0 - 18.0 g/dl [facility] Hematocrit 43.1 42.0 - 52.0 % [facility] Mean Corpuscular Volume 91.5 80.0 - 98.0 fL [facility] Mean Corpuscular Hemoglobin 31.4 27.0 - 33.0 pg [facility] Mean Corpuscular HGB Conc 34.3 31.0 - 36.0 g/dl [facility] Red Cell Distribution Width 12.6 11.0 - 16.0 % [facility] Platelet Count 196 160 - 400 X10*3/uL [facility] Mean Platelet Volume 12.0 9.4 - 12.4 fL [facility] Neutrophils Percent Auto 73.6(H) 45 - 73 % [facility] Imm Gran Pct Auto 0.3 0.0 - 0.4 % [facility] Lymphocytes Percent Auto 17.8(L) 20 - 40 % [facility] Monocytes Percent Auto 7.6 2 - 11 % [facility] Eosinophils Percent Auto 0.3 0 - 4 % [facility] Basophils Percent Auto 0.4 0 - 2 % [facility] NRBC Pct Auto 0.0 0.0 - 0.2 /100WBC [facility] Neutrophils Absolute Auto 7.0 2.0 - 8.3 x10*3/uL [facility] Imm Gran Abs Auto 0.03 0.00 - 0.03 X10*3/uL [facility] Lymphocytes Absolute Auto 1.7 1.2 - 4.9 X10*3/uL [facility] Monocytes Absolute Auto 0.7 0.1 - 1.2 X10*3/uL [facility] Eosinophils Absolute Auto 0.0 0.0 - 0.4 X10*3/uL [facility] Basophils Absolute Auto 0.0 0.0 - 0.2 X10*3/uL [facility] NRBC Abs Auto 0.000 0.0 - 0.012 X10*3/uL [facility] 04/18/2024 9:58 PM EST 04/18/2024 10:01 PM EST us Generic External Data Provider LAB BLOOD ORDERAB LES Final Result [facility] [address] [place] [address] [phone] * HEPATITIS C AB W/REFL TO HCV RNA, QN, PCR (12/01/2019 3:58 PM EDT) HEPATITIS C ANTIBODY NON-REACT GATO NON-REACT GATO [facility] INDEX 0.02 <1.00 [facility] Comment: ?? HCV antibody was non-reactive. There is no laboratory ?? evidence of HCV infection. ?? In most cases, no further action is required. However, if recent HCV exposure is suspected, a test for HCV RNA (test code 61356) is suggested. ?? For additional information please refer to http://Banki.ru/faq/CJM92f6 (This link is being provided for informational/ educational purposes only.) ?? HEPATITIS C ANTIBODY NON-REACT GATO NON-REACT GATO [facility] INDEX 0.02 <1.00 [facility] Comment: ?? HCV antibody was non-reactive. There is no laboratory ?? evidence of HCV infection. ?? In most cases, no further action is required. However, if recent HCV exposure is suspected, a test for HCV RNA (test code 11115) is suggested. ?? For additional information please refer to http://Banki.ru/faq/KSM26t1 (This link is being provided for informational/ educational purposes only.) ?? HEPATITIS C ANTIBODY NON-REACT GATO NON-REACT GATO [facility] INDEX 0.02 <1.00 [facility] Comment: ?? HCV antibody was non-reactive. There is no laboratory ?? evidence of HCV infection. ?? In most cases, no further action is required. However, if recent HCV exposure is suspected, a test for HCV RNA (test code 04042) is suggested. ?? For additional information please refer to http://Banki.ru/faq/IUE68q8 (This link is being provided for informational/ educational purposes only.) ?? 12/01/2019 3:58 PM EDT Sayra Partida RN HEDIS HISTORICAL/NON ORDERABLE LABS Final Result [facility] [address] * HIV 1/2 ANTIGEN/ANTIBODY,FOURTH GENERATION W/RFL (12/01/2019 3:58 PM EDT) [facility] HIV-1/2 ANTIGEN AND ANTIBODIES, 4TH GENERATION W/ REFLEX NON-REACT GATO NON-REACT GATO [facility] Comment: HIV-1 antigen and HIV-1/HIV-2 [...] ? For additional information please refer to http://[employer]/faq/TAF499 (This link is being provided for informational/ educational purposes only.) ? The performance of this assay has not been clinically validated in patients less than 2 years old. ?? HIV-1/2 ANTIGEN AND ANTIBODIES, 4TH GENERATION W/ REFLEX NON-REACT GATO NON-REACT GATO [facility] Comment: HIV-1 antigen and HIV-1/HIV-2 [...] ? For additional information please refer to http://[employer]/faq/IAX917 (This link is being provided for informational/ [...] ? For additional information please refer to http://[employer]/faq/LAR657 (This link is being provided for informational/ educational purposes only.) ? The performance of this assay has not been clinically validated in patients less than 2 years old. ?? HIV-1/2 ANTIGEN AND ANTIBODIES, 4TH GENERATION W/ REFLEX NON-REACT GATO NON-REACT GATO [facility] Comment: HIV-1 antigen and HIV-1/HIV-2 [...] ? For additional information please refer to http://[employer]/faq/PJQ554 (This link is being provided for informational/ educational purposes only.) ? The performance of this assay has not been clinically validated in patients less than 2 years old. ?? 12/01/2019 3:58 PM EDT us Sayra Partida RN HEDIS LAB BLOOD ORDERABLES Final Res ult [facility] [address] from Last 3 Months or Most Recently Relevant to Health Maintenance Insurance [address] [place] [address] C3 Care Teams Director Of Food And Nutrition Relationship Specialty Start Date End Date Consuelo Shannon ANP [address] [place] [phone] PCP - General Family Medicine 10/25/21
--- OUTSIDE RECORDS SUMMARY | 2024-04-23 15:23 | XMS_ITS | Encounter Summary ---
Author Organization [employer] Address [address] [facility] [address]t [place] [address] Care Team Providers Care Clinical Product Specialist Name Role Phone Consuelo Shannon ANP Primary Care Provider [phone] Reason for Visit * Reason Comments Med Refill Encounter Details Date Type Department Care Team ([facility] st Contact Info) Description 11/24/2023 Refill [facility] [address] [place] [phone] Consuelo Shannon ANP [address] [place] [address] Social History Tobacco Use Types Packs/Day Years [...] Marlena Barraza regarding Pt medicaid insurance. When proposal writer runs the information for insurance it shows as rejected. Medicaid # is [id number]. Pt information given and awaiting update. documented in this encounter Plan of Treatment Not on file documented as of this encounter Visit Diagnoses Not on filedocumented in this encounter Care Teams Clinical Product Specialist Relationship Specialty Start Date End Date Consuelo Shannon ANP [address] [place] [phone] PCP - General Family Medicine 10/25/21 documented as of this encounter
--- OUTSIDE RECORDS SUMMARY | 2024-04-23 15:23 | XMS_ITS | Encounter Summary ---
Author Organization [employer] Address [address] [facility] [address] [place] [address] Care Team Providers Care Instructor Painting Name Role Phone Consuelo Shannon Primary Care Provider [phone] Encounter Details Date Type Department Care Team ([facility] Contact Info) Description 04/18/2024 Orders Only GENERIC [...] Blood Count 9.6 4.8 - 10.8 X10*3/uL [facility] Red Blood Count 4.71 4.60 - 5.80 X10*6/uL [facility] Hemoglobin 14.8 14.0 - 18.0 g/dl [facility] Hematocrit 43.1 42.0 - 52.0 % [facility] Mean Corpuscular Volume 91.5 80.0 - 98.0 fL [facility] Mean Corpuscular Hemoglobin 31.4 27.0 - 33.0 pg [facility] Mean Corpuscular HGB Conc 34.3 31.0 - 36.0 g/dl [facility] Red Cell Distribution Width 12.6 11.0 - 16.0 % [facility] Platelet Count 196 160 - 400 X10*3/uL [facility] Mean Platelet Volume 12.0 9.4 - 12.4 fL [facility] Neutrophils Percent Auto 73.6(H) 45 - 73 % [facility] Imm Gran Pct Auto 0.3 0.0 - 0.4 % [facility] Lymphocytes Percent Auto 17.8(L) 20 - 40 % [facility] Monocytes Percent Auto 7.6 2 - 11 % [facility] Eosinophils Percent Auto 0.3 0 - 4 % [facility] Basophils Percent Auto 0.4 0 - 2 % [facility] NRBC Pct Auto 0.0 0.0 - 0.2 /100WBC [facility] Neutrophils Absolute Auto 7.0 2.0 - 8.3 x10*3/uL [facility] Imm Gran Abs Auto 0.03 0.00 - 0.03 X10*3/uL [facility] Lymphocytes Absolute Auto 1.7 1.2 - 4.9 X10*3/uL [facility] Monocytes Absolute Auto 0.7 0.1 - 1.2 X10*3/uL [facility] Eosinophils Absolute Auto 0.0 0.0 - 0.4 X10*3/uL [facility] Basophils Absolute Auto 0.0 0.0 - 0.2 X10*3/uL [facility] NRBC Abs Auto 0.000 0.0 - 0.012 X10*3/uL [facility] 04/18/2024 9:58 PM EST 04/18/2024 10:01 PM EST us Generic External Data Provider LAB BLOOD ORDERAB LES Final Result [facility] [address] [place] [address] [phone] documented in this encounter Visit Diagnoses Not on filedocumented in this encounter Care Teams Instructor Painting Relationship Specialty Start Date End Date Consuelo Shannon ANP [address] [place] [address] PCP - General Family Medicine 10/25/21 documented as of this encounter
--- OUTSIDE RECORDS SUMMARY | 2024-04-23 15:23 | XMS_ITS | Encounter Summary ---
Author Organization [employer] Address [address] [facility] [address] [place] [address] Care Team Providers Care Support Staff Name Role Phone Consuelo Shannon Primary Care Provider [phone] Reason for Visit * Reason Onset Date Comments Med Refill 05/01/2022 Encounter Details Date Type Department Care Team ([facility] st Contact Info) Description 05/01/2022 Telephone [facility] [address] [place] [address] Consuelo Shannon ANP [address] [place] [address] Med Refill Social History Tobacco Use Types [...] 9:50 AM EST Medication was sent to [id number] on 01/08/22 Qty: 90 with 1 refill. * Telephone Encounter - Arnaldo Nguyen - 05/01/2022 9:39 AM EST Tc from pt requesting med refill Valacyclovir 1 gram tablet documented in this encounter Plan of Treatment Not on file documented as of this encounter Visit Diagnoses Not on filedocumented in this encounter Care Teams Support Staff Relationship Specialty Start Date End Date Consuelo Shannon ANP [address] [place] [address] PCP - General Family Medicine 10/25/21 documented as of this encounter
--- OUTSIDE RECORDS SUMMARY | 2024-04-23 15:23 | XMS_ITS | Encounter Summary ---
Author Organization [employer] Address [address] [facility] 7t [place] [address] Care Team Providers Care [employer] Consultant Name Role Phone Consuelo Shannon Primary Care Provider [phone] Reason for Visit * Reason Onset Date Comments Care Management 04/20/2024 [facility]- chart revi ew Encounter Details Date Type Department Care Team ([facility] Contact Info) Description 04/20/2024 Telephone [facility] [address] [place] [address] Consuelo Shannon ANP [address] [place] [address] Care Management (C3CM- chart review) Social History Tobacco Use Types Packs/Day Years [...] the past 12 months, has t he [employer], gas, oil or water [employer] threatened to shut off services in your home? No 12/27/2023 Sex and Gender Information Value Date Recorded Sex Assigned at Male 12/25/2021 10:14 AM EDT Legal Sex Male 10:14 AM EDT Gender Identity Male 12/25/2021 10:14 AM EDT Sexual Orientation Don't know 12/25/2021 10 :14 AM EDT documented as of this encounter Miscellaneous Notes * Telephone Encounter - Spencer Hunt RN - 04/20/2024 8:18 AM EST JENN Hunt RN, performed chart review, in anticipation of initial assessment with patient, as patient has stratified for C3 Adult Complex Care through the ADT feed. History significant for herpetic infection of penis, mild intermittent asthma, depressive disorder, ADHD, intrinsic eczema, acquired keratosis pilaris, and hernia repair (01/17/24). Specialists include [facility] (right knee), [facility], and [facility] General Surgeons. ED visits within the last 12 months include CED 04/18/24 Dx polysubstance abuse and [facility] 01/01/24. Last appointment in PCP office on 12/27/23. Nofuture appointments scheduled at this time. documented in this encounter Plan of Treatment Not on file documented as of this encounter Visit Diagnoses Not on filedocumented in this encounter Care Teams [employer] Consultant Relationship Specialty Start Date End Date Consuelo Shannon ANP [address] [place] [phone] PCP - General Family Medicine 10/25/21 documented as of this encounter
--- OUTSIDE RECORDS SUMMARY | 2024-04-23 15:23 | XMS_ITS | Encounter Summary ---
Author Organization [employer] Address [address] [facility] [address] [place] [address] Care Team Providers Care Business Case Analyst Name Role Phone Consuelo Shannon Primary Care Provider [phone] Reason for Visit * Reason Comments Care Coordination CM/CHW outreach Encounter Details Date Type Department Care Team (Latest Contact Info) Description 04/20/2024 Patient Outreach [facility] [address] [place] [address] Consuelo Shannon ANP [address] [place] [address] Care Coordination (CM/CHW outreach) Social History Tobacco Use Types Packs/Day Years [...] AM EDT documented as of this encounter Progress Notes * Zoey Ibarra - 04/20/2024 2:54 PM EST CHW Zoey Ibarra, placed outbound call to patient in regards to offer Adult Complex Care Program and SDOH services. No answer at this time. CHW LVM introducing herself from [facility] CMDepartment with CHW's name, department and direct contact number requesting call back. Will re-attempt to contact within 5 days. and address not confirmed. documented in this encounter Plan of Treatment Not on file documented as of this encounter Visit Diagnoses Not on filedocumented in this encounter Care Teams Business Case Analyst Relationship Specialty Start Date End Date Consuelo Shannon ANP [address] [place] [phone] PCP - General Family Medicine 10/25/21 documented as of this encounter
--- OUTSIDE RECORDS SUMMARY | 2024-04-23 15:23 | XMS_ITS | Clinical Summary ---
Author Organization [facility] ity Address [address] [place] [address] Care Team Providers Care Assemblies And Installations Inspector Name Role Phone Unavailable Primary Care Provider Unavailabl e Social History Tobacco Use Types Packs/Day Years Used Date Smoking Tobacco: Never Assessed Sex and Gender Information Value Date Recorded Sex Assigned at Not on file Legal Sex Male 4:37 AM EST Gender Identity Not on file Sexual Orientation [...] patient's age to complete this topic Meningococcal B Vacine Aged Out No lo nger eligible based on patient's age to complete [...]
== END 2024-04-23 13:12 | disposition home or self-care (01) ==
PROVIDERS: Visit Provider Nurse Practitioner Family
DX: M23.91 Unspecified internal derangement of right knee (principal); M25.561 Pain in right knee; M67.969 Unspecified disorder of synovium and tendon, unspecified lower leg
CPT/HCPCS: 99213

== ENCOUNTER → 2024-04-23 12:57 | Outpatient (BNVA) | payer MEDICAID, SELFPAY | PROVIDERS: Visit Provider Nurse Practitioner Family | DX: M23.91 Unspecified internal derangement of right knee (principal); M67.961 Unspecified disorder of synovium and tendon, right lower leg; M25.561 Pain in right knee | CPT/HCPCS: 99212 ==

== ENCOUNTER 2024-05-12 15:00 | Outpatient (REF) | payer MEDICAID, SELFPAY ==
[2024-05-12 17:27] LABS: TSH reflex Free T4 1.82 uIU/mL (0.32-4.0)
[2024-05-13 03:46] LABS: CT PCR NOT DETECTED (Not Detect.); NG PCR NOT DETECTED (Not Detect.)
[2024-05-13 08:32] LABS: HIV AB/AG Nonreactive (Nonreactive); HIV Num 1 0.15 S/CO (0.00-0.99); ~HepC Num1 0.09 S/CO (0.00-0.79); ~Hepatitis C Antibody Nonreactive (Nonreactive)
[2024-05-13 10:13] LABS: RPR Rapid Plasma Reagin NON-REACTIVE (NON-REACTIVE)
== END 2024-05-12 15:01 | disposition home or self-care (01) ==
LOC: HO.HHCL 15:00
PROVIDERS: Visit Provider Nurse Practitioner Primary Care
DX: Z11.3 Encounter for screening for infections with a predominantly sexual mode of transmission (principal); Z11.4 Encounter for screening for human immunodeficiency virus [HIV]; I65.9 Occlusion and stenosis of unspecified precerebral artery
CPT/HCPCS: 84443; 86592; 86803; 87389; 87491; 87591

== ENCOUNTER 2024-05-16 20:25 | Outpatient (REF) | payer MEDICAID, SELFPAY ==
--- OUTSIDE RECORDS SUMMARY | 2024-05-16 20:27 | XMS_ITS | Encounter Summary ---
Author Organization [employer] Address [address] [place] [address] Care Team Providers Care Welfare Visitor Name Role Phone Olivia Schaeffer Primary Care Provider [phone] Reason for Visit * Reason Onset Date Comments Results 05/13/2024 Encounter Details Date Type Department Care Team ([facility] Contact Info) Description 05/13/2024 Telephone [facility] [address] [place] [address] Lorena Ramos RN Results Social History Tobacco Use Types Packs/Day Years Used Date Smoking Tobacco: Former Cigarettes Passive Smoke Exposure: Never Smokeless Tobacco: Never Depression Answer Date Recorded Patient Health Questionnaire-9 Score 6 05/12/2024 Patient Health Questionnaire-9 Score 6 05/12/2024 Last PHQ-9: Questionnaire Data Not on file 0 05/12/2024 Housing Stability Answer Date Recorded What is your housing situation today? I have paige batista 05/12/[address] you li ve. Do you have problems with any of the following? None of the above 05/12/2024 Food Insecurity Answer Date Recorded Within the past 12 months, y ou worried that your food would run out before you got money to buy more: Never True 05/05/2024 Within the past 12 months,th e food you bought just didn't last and you didn't have enough money to get more: Never True 12/2024 Transportation Answer Date Recorded In the past 12 months, has l ack of transportation kept you from medical appts, meetings, work or from getting things needed for daily living? No 05/05/2024 Utilities Answer Date Recorded In the past 12 months, has t he electric, gas, oil or water company threatened to shut off services in your home? No 12/27/2023 Depression Answer Date Recorded Patient Health Questionnaire-2 Score 2 05/12/2024 Internet Access Answer Date Recorded Internet Access Q1 Yes 05/05/2024 Internet Access Q2 Not on file 05/05/2024 Sex and Gender Information Value Date Recorded Sex Assigned at Male 12/25/2021 10:14 AM EDT Legal Sex Male 10:14 AM EDT Gender Identity Male 12/25/2021 10:14 AM EDT Sexual Orientation Don't know 12/25/2021 10 :14 AM EDT documented as of this encounter Miscellaneous Notes * Addendum Note - ABHAY Vargas - 05/13/2024 4:36 PM EDTAddended by: OLIVIA SCHAEFFER on: 05/13/2024 04:36 PM Modules accepted: Orders * Telephone Encounter - Lorena Ramos RN - 05/13/2024 11:45 AM EDT TC placed to pt to inform of PCP message below regarding most recent blood work results. Pt advisedof results including normal thyroid testing and pt given options for hair growth medication including OTC Minoxidil and prescription Finasteride 1 MG. Pt states that the is agreeable with PCP sendingthe prescription through to [facility] and to see if it is covered by insurance. RN advised pt that this request will be sent to PCP to send prescription to [facility] in [place]. ----- Message from Olivia Schaeffer sent at 05/13/2024 11:29 AM EDT ----- Please let lynn know, his lab tests are normal. As his thyroid test is also normal, we could consider finasteride 1mg once daily PO for male pattern hair loss. If he is interested in minoxidil, I would recommend he purchase topical Rogaine or HIMS or similar OTC minoxidil product as his insurance will not cover it. Hopefully they will cover finasteride, but we won't know until I send rx. If he is interested in the finasteride, we will continue it for at least 6 mos to assess effect. Both minoxidil topical or finasteride PO only work as long as you continue to take/use them. Thanks. 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
--- OUTSIDE RECORDS SUMMARY | 2024-05-16 20:27 | XMS_ITS | Encounter Summary ---
Author Organization [employer] Address [address] [place] [address] Care Team Providers Care Warehouse Shipping Associate Name Role Phone Consuelo Shannon Primary Care Provider [phone] Reason for Referral * Imaging (Routine) - Authorized Specialty Diagnoses / Procedures Referred By Abdirahman zee Referred To Contact Radiology Diagnoses Ligamentous laxity of left shoulder Procedures MR Shoulder w/o Contrast Left Consuelo Shannon ANP [address] [place] [address] Phone: tel: fax: [address] Phone: tel: fax: Referral ID Status Reason Start Date Expiration Date V isits Requested Visits Authorized [id number] Authorized 05/12/2024 05/12/2025 1 1 Reason for Visit * Reason Comments Follow-up Encounter Details Date Type Department Care Team (Late st Contact Info) Description 05/12/2024 1:00 PM EDT Office Visit [facility] MED[facility] [address] [place] [address] Consuelo Shannon ANP [address] [place], [place] [phone] Ligamentous laxity of left shoulder (Primary Dx); Hair loss; Herpetic infection of penis Social History Tobacco Use Types Packs/Day Years [...] AM EDT documented as of this encounter Last Filed Vital Signs Vital Sign Reading Time Taken Comments Blood Pressure 126/60 05/12/2024 1:29 PM EDT Pulse 65 05/12/2024 1:29 PM EDT Temperature 36.4 ??C (97.6 ??F) 05/12/2024 1:29 PM ED T Respiratory Rate 16 05/12/2024 1:29 PM EDT Oxygen Saturation 98% 05/12/2024 1:29 PM EDT Inhaled Oxygen Concentration - - Weight 82.3 kg (181 lb 6.4 oz) 05/12/2024 1:29 P M EDT Height 172.7 cm (5' 8 ) 05/12/2024 1:29 PM EDT Body Mass Index 27.58 05/12/2024 1:29 PM EDT documented in this encounter Progress Notes * Consuelo Shannon, ABHAY - 05/12/2024 1:00 PM EDT Subjective Patient ID: Jacobo Jeronimo is a 29 y.o. male who presents for Follow-up. HPI Here today after emergency room visit for PCP use. Patient recently got out of [facility] and used after getting out. His mom called police because she did not want him to use substances. He denies frequent use of substances and reports takes dust maybe once a month or less. He is established with pain management and got knee injection late February. He did see [facility] ortho for this as well. His L shoulder is still bothering him, +++clicking. Established w/ [facility] and has left shoulder ligamentous laxity. He is hesitant to do PT for his left shoulder because he wants to know what is wrong with it before pursuing PT because he is afraid that he could make the problem worse. I will order an MRI though I explained that may need to complete PT before insurance will cover. If MRI is normal or depending on results we will we refer him to Ortho or ask him to follow-up there again. If MRI is not covered for some reason then we will again refer to PT. We discussed briefly STI exposure and he would like testing. Has already been ordered and not yet obtained. He does not use condoms except if that person is unable to show him recent STI lab results.We discuss his desire for parenting which he would like and I encouraged him to discuss this with any potential partners. Reports losing hair or hair thinning at the frontal crown. Father and maternal grandfather both have full heads of hair. He denies itching or scaling or flaking but he does have significant stress. He is interested in finasteride or minoxidil. Works in construction. Requests refill for Valtrex. Review of Systems Constitutional: Negative for fatigue, fever and unexpected weight change. HENT: Negative for sore throat. Respiratory: Negative for cough. Endocrine: Negative for polydipsia, polyphagia and polyuria. Musculoskeletal: Positive for arthralgias. Psychiatric/Behavioral: Negative for agitation and confusion. The patient is not nervous/anxious. Objective BP 126/60 (BP Location: Left arm, Patient Position: Sitting, BP Cuff Size: Adult) Pulse65 Temp 97.6 ??F (36.4 ??C) (Temporal) Resp 16 Ht 5' 8 (1.727 m) Wt 181 lb 6.4 oz (82.3 kg) SpO2 98% BMI 27.58 kg/m?? Physical Exam Vitals reviewed. Constitutional: General: He is not in acute distress. Appearance: Normal appearance. He is not ill-appearing. HENT: Head: Normocephalic and atraumatic. Eyes: General: No scleral icterus. Extraocular Movements: Extraocular movements intact. Pupils: Pupils are equal, round, and reactive to light. Cardiovascular: Rate and Rhythm: Normal rate. Pulmonary: Effort: Pulmonary effort is normal. No accessory muscle usage or respiratory distress. Musculoskeletal: Comments: + clicking L shoulder w/ any ROM of LUE Skin: General: Skin is warm and dry. Neurological: Mental Status: He is alert and oriented to person, place, and time. Psychiatric: Mood and Affect: Mood normal. Behavior: Behavior normal. Assessment/Plan Diagnoses and all orders for this visit: Ligamentous laxity of left shoulder Reviewed w/ pt may need to complete PT first - MR Shoulder w/o Contrast Left; Future Hair loss Check TSH. No s/s of daina derm. If TSH normal can consider finasteride. documented in this encounter Plan of Treatment Upcoming Encounters Date Type Department Care Team (Late st Contact Info) Description 08/14/2024 2:15 PM EDT Office Visit [facility] [address] [place] [address] Consuelo Shannon ANP [address] [place] [address] Scheduled Orders Name Type Priority Associated Diagnoses Orde r Schedule MR Shoulder w/o Contrast Left Imaging Routine Ligamentous laxity of left shoulder Expected: 05/12/2024, Expires: 05/12/2025 documented as of this encounter Procedures Procedure Name Priority Date/Time Associated Diagnosis Comments TSH W/REFLEX TO FT4 Routine 05/12/2024 3 :04 PM EDT Hair loss documented in this encounter Results * TSH W/Reflex to FT4 (05/12/2024 3:04 PM EDT) TSH reflex Free T4 1.82 0.32 - 4.0 uIU/mL [facility] Blood Venous blood specimen / Unknown 05/12/2024 3:04 PM EDT 05/12/2024 4:45 PM EDT us Consuelo BLANK LAB BLOOD ORDERABLES Final Resul t [facility] [address] [place] [address] [phone] documented in this encounter Visit Diagnoses Diagnosis Ligamentous laxity of left shoulder- Primary Hair loss Unspecified alopecia Herpetic infection of penis documented in this encounter Additional Health Concerns Assessment Noted Time PHQ-9 Depression Total Score: 6 05/13/19 25 1:32 PM EDT documented as of this encounter Care Teams Warehouse Shipping Associate Relationship Specialty Start Date End Date Consuelo Shannon ANP [address] [place] [id number] PCP - General Family Medicine 10/25/21 documented as of this encounter
--- OUTSIDE RECORDS SUMMARY | 2024-05-16 20:27 | XMS_ITS | Clinical Summary ---
Author Organization [facility] ity Address [address] [place] [address] Care Team Providers Care Incinerator Plant Laborer Name Role Phone Unavailable Primary Care Provider [...]
--- OUTSIDE RECORDS SUMMARY | 2024-05-16 20:27 | XMS_ITS | Encounter Summary ---
Author Organization [employer] Address [address] [place] [address] Care Team Providers Care Coiled Coil Inspector Name Role Phone Consuelo Shannon Primary Care Provider [phone] Encounter Details Date Type Department Care Team (Latest Contact Info) Description 05/12/2024 Travel Social History Tobacco Use Types Packs/Day Years Used Date Smoking Tobacco: Former Cigarettes Passive Smoke Exposure: Never Smokeless Tobacco: Never Depression Answer Date Recorded Patient Health Questionnaire-9 Score 6 05/12/2024 Patient Health Questionnaire-9 Score 6 05/12/2024 Last PHQ-9: Questionnaire Data Not on file 0 05/12/2024 Housing Stability Answer Date Recorded What is your housing situation today? I have paigejazmyn batista 05/12/[address] you [...] as of this encounter Plan of Treatment Upcoming Encounters Date Type Department Care Team (Late st Contact Info) Description 08/14/2024 2:15 PM EDT Office Visit [facility] [address] [place] [address] Consuelo Shannon ANP [address] [place] [address] documented as of this encounter Visit Diagnoses Not on filedocumented in this encounter Additional Health Concerns Assessment Noted Time PHQ-9 Depression Total Score: 6 05/13/19 25 1:32 PM EDT documented as of this encounter Care Teams Coiled Coil Inspector Relationship Specialty Start Date End Date Consuelo Shannon ANP [address] [place] [id number] PCP - General Family Medicine 10/25/21 documented as of this encounter
--- OUTSIDE RECORDS SUMMARY | 2024-05-16 20:27 | XMS_ITS | Clinical Summary ---
Author Organization [employer] Address [address] 7t [place] [address] Care Team Providers Care [employer] Physical Education Teacher Name Role Phone Consuelo Shannon Primary Care Provider [phone] Allergies Active Allergy Reactions Criticality Noted Date Comments Mushroom Extract Complex (Obsolete) 05/12/2024 Medications betamethasone valerate (Valisone) 0.1 % cream Apply topically if needed in the morning and at bedtime (dryness). 45 g 2 12/23/19 24 Active ammonium lactate (Amlactin) 12 % cream Apply topically if needed for dry skin. 385 g 12/23/19 24 025 Active Ventolin HFA 108 (90 Base) MCG/ACT inhaler INHALE 2 PUFFS EVERY 6 HOURS IF NEEDED FOR WHEEZING. 18 g 1 01/27/20 24 Active valACYclovir (Valtrex) 1 g tabletIndicati ons:Herpetic infection of penis Take 1 tablet (1,000 mg) by mouth Once daily. 90 tablet 1 05/13/19 25 025 Active finasteride (Propecia) 1 MG tabletIndicati ons:Male pattern alopecia Take 1 tablet (1 mg) by mouth Once per day. Do not crush, chew, or split. 90 tablet 2 05/14/19 25 026 Active valACYclovir (Valtrex) 1 g tabletIndicati ons:Herpetic infection of penis Take 1 tablet (1,000 mg) by mouth Once daily. 90 tablet 1 11/29/19 24 025 Discontinued(Re order (will not trigger notification to Pharmacy)) Active Problems Problem Noted Date Diagnosed Date Male pattern alopecia 05/13/2024 Intrinsic eczema 12/23/2023 Acquired keratosis pilaris 12/23/2023 [...] nt, sequela 12/23/2023 Overview (12/23/2023): Seen at [facility], on 2018 sp PEA + cardiac [...] (12/23/2023 12:00 PM EDT): Back on 2017, [facility] reviewed. Due to PEA and having [...] Encounters Date Type Department Care Team Description 05/13/[address] [address] Consuelo Shannon ANP Male pattern alopecia 05/13/[address] [address] Lorena Ramos RN Results 05/12/2024 1:00 PM EDT Office Visit [address] [address] Consuelo Shannon ANP Ligamentous laxity of left shoulder (Primary Dx); Hair loss; Herpetic infection of penis 05/12/2024 Travel 05/05/2024 Patient Outreach [address] [address] Consuelo Shannon ANP Pre-visit Planning (SDOH Screening negative and Tobacco screening negative) 04/24/2024 Patient Outreach [address] [address] Consuelo Shannon ANP Care Coordination (CM/CHW outreach) 04/20/2024 Patient Outreach [address] [address] Consuelo Shannon ANP Care Coordination (CM/CHW outreach) 04/20/[address] [address] Consuelo Shannon ANP Care Management (C3CM- chart [...] Tobacco: Never Tobacco Cessation:Counseling Given: Not Answered Depression Answer Date Recorded Patient Health Questionnaire-9 [...] Mass Index 27.58 05/12/2024 1:29 PM EDT Plan of Treatment Upcoming Encounters Date Type Department Care Team (Late st Contact Info) Description 08/14/2024 2:15 PM EDT Office Visit [facility] [address] [place] [address] Consuelo Shannon, ANP [address] [place] [address] Health Maintenance Due Date Last Done Comments Alcohol/Substance Use Screening 2009 Family Planning (PISQ) 2012 Pneumococcal Vaccine: Pediatrics (0 to 5 Years) and At-Risk Patients (6 to 49) Years) (1 of 2 - PCV) 2016 DTaP/Tdap/Td Vaccines (6 - Td or Tdap) 11/28/2020 11/28/2010, 02/11/2000, 06/16/1998, Additional history exists COVID-19 Vaccine ( season) 2023 Depression Screening 05/12/2025 05/12/2024, 03/18/20 25 SDOH Screening 05/12/2025 05/12/2024 Tobacco Screening 05/12/2025 05/12/2024 Zoster Vaccines (1 of 2) 2047 RSV Patients and Patients Aged 60 years or older (1 - 1-dose 75+ series) 2072 HIB Vaccines Completed 06/16/1998, 09/26, 1997, Additional history exists IPV Vaccines Completed 02/10/2003, 08/25, 1997, Additional history exists Hepatitis A Vaccines Completed 08/15/2007, 07/20/19 07 HPV Vaccines Completed 03/15/2011, 07/27, 02/23/2010 Meningococcal Vaccine Completed 10/26/2014, 013 Hepatitis B Vaccines Completed 09/07/2017, 09/04/2017, 1997, Additional history exists Influenza Vaccine Completed 12/23/2023, , 03/23/2015, Additional history exists HIV Screening Completed 05/12/2024, 07/2019, 11/30/2019, Additional history exists Hepatitis C Screening Completed 05/12/2024, 020 RSV under 20 months Aged Out No longe r eligible based on patient's age to complete this topic Rotavirus Vaccines Aged Out No longer eligible based on patient's age to complete this topic Procedures Procedure Name Priority Date/Time Associated Diagnosis Comments TSH W/REFLEX TO FT4 Routine 05/12/2024 3 :04 PM EDT Hair loss HEPATITIS C AB W/REFL TO HCV RNA, QN, PCR Routine 05/12/2024 3:04 PM EDT Screening examination for STI RPR (MONITOR) W/REFL TITER Routine 05/12/2024 3:04 PM EDT Screening examination for STI HIV 1/2 ANTIGEN/ANTIBODY, FOURTH GENERATION W/RFL Routine 05/12/2024 3:04 PM EDT Screening examination for STI CHLAMYDIA/N. GONORRHOEAE RNA, TMA, UROGENITAL Routine 05/12/2024 3:04 PM EDT Screening examination for STI CBC WITH AUTO DIFFERENTIAL Routine 04/18/2024 9:58 PM EST from Last 3 Months Results * TSH W/Reflex to FT4 (05/12/2024 3:04 PM EDT) [facility] TSH reflex Free T4 1.82 0.32 - 4.0 uIU/mL [facility] Blood Venous blood specimen / Unknown 05/12/2024 3:04 PM EDT 05/12/2024 4:45 PM EDT Consuelo Shannon [facility] BLOOD ORDERABLES Final Resul t Performing Organization Address [facility] Co de Phone Number [facility] [address] [place] [phone] * Hepatitis C Antibody with Reflex to HCV, RNA, Quantitative, Real-Time PCR (05/12/2024 3:04 PM EDT) [facility] Hepatitis C Antibody Nonreactive Nonreactive [facility] Comment:Antibodies to HCV no t detected; does not exclude early acuteHCV infection. Blood Venous blood specimen / Unknown 05/12/2024 3:04 PM EDT 05/12/2024 4:45 PM EDT Consuelo Shannon [facility] LAB BLOOD ORDERABLES Final Resul t Performing Organization Address [facility] Co de Phone Number [facility] [address] [place] [phone] * Chlamydia/N. Gonorrhoeae RNA, TMA, Urogenitial (05/12/2024 3:04 PM EDT) [facility] CT PCR NOT DETECTED Not Detect. [facility] Comment:A not detected test result does not exclude the possibilityof infection because test results can be affected byimproper specimen collection, concurrent antibiotic therapy,or the number of organisms in the specimen which may bebelow the sensitivity of the test. As with many diagnostictests, results from the Xpert CT/NG assay should beinterpreted in conjunction with other laboratory andclinical data available to the clinician.Xpert CT/NG performance has not been evaluated in patientsless than 14 years of age. The assay should not be used forthe evaluationof suspected sexual abuse or for other medico-legalindications. Additional testing is recommended in anycircumstance when false positive or false negative resultscould lead to adverse medical, social or psychologicalconsequences. NG PCR NOT DETECTED Not Detect. [facility] Comment:A not detected test result does not exclude the possibilityof infection because test results can be affected byimproper specimen collection, concurrent antibiotic therapy,or the number of organisms in the specimen which may bebelow the sensitivity of the test. As with many diagnostictests, results from the Xpert CT/NG assay should beinterpreted in conjunction with other laboratory andclinical data available to the clinician.Xpert CT/NG performance has not been evaluated in patientsless than 14 years of age. The assay should not be used forthe evaluationof suspected sexual abuse or for other medico-legalindications. Additional testing is recommended in anycircumstance when false positive or false negative resultscould lead to adverse medical, social or psychologicalconsequences. Urine (Urine, Random) 05/12/2024 3:04 PM EDT 05/12/2024 4:26 PM EDT Narrative [facility] - 05/13/2024 3:47 AM EDT Urine Critical access hospital LAB MICROBIOLOGY - GENERAL ORDER GLENNA Final Result [facility] [address] [place] [phone] [phone] * RPR (Monitor) with Reflex to??Titer (05/12/2024 3:04 PM EDT) RPR (Monitor) w/Refl Titer NON-REACTI VE NON-REACT GATO [facility] Comment:THIS TEST WAS PERFOR MED AT:[address] [place] [phone] BUSBY MD Rapid Plasma Reagin Ab Titer TNP [facility] Blood Venous blood specimen / Unknown 05/12/2024 3:04 PM EDT 05/12/2024 4:45 PM EDT Consuelo Shannon [facility] BLOOD ORDERABLES Final Resul t Performing Organization Address [facility]/ZIP Co de Phone Number [facility] [address] [place] [address] [phone] * HIV-1/2 Antigen and Antibodies, Fourth Generation, with Reflexes (05/12/2024 3:04 PM EDT) Pathologist [facility] HIV AB/AG Nonreactive Nonreactive [facility] Comment:HIV-1 p24 Ag and/or HIV-1/HIV-2 Ab not detected.A test result that is nonreactive does not exclude thepossibility of exposure to or infection with HIV-1 and/orHIV-2. Nonreactive results in this assay for individualswith prior exposure to HIV-1 and/or HIV-2 may be due toantigen and antibody levels that are below the limit ofdetection of this assay.The [employer] HIV Ag/Ab Combo assay result andsupplemental assay results should be interpreted inconjunction with the patient's clinical presentation,history and other laboratory results. If the results areinconsistent with clinical evidence, additional testing issuggested to confirm the result. Blood Venous blood specimen / Unknown 05/12/2024 3:04 PM EDT 05/12/2024 4:45 PM EDT Consuelo Shannon [facility] LAB BLOOD ORDERABLES Final Resul t Performing Organization Address City/[facility]/ZIP Co de Phone Number [facility] [address] [place] [address] [phone] * (ABNORMAL) CBC auto differential (04/18/2024 9:58 PM EST) White Blood Count 9.6 4.8 - 10.8 X10*3/uL [facility] Red Blood Count 4.71 4.60 - 5.80 X10*6/uL [facility] Hemoglobin 14.8 14.0 - 18.0 g/dl [facility] Hematocrit 43.1 42.0 - 52.0 % [facility] Mean Corpuscular Volume 91.5 80.0 - 98.0 fL [facility] Mean Corpuscular Hemoglobin 31.4 27.0 - 33.0 pg [facility] Mean Corpuscular HGB Conc 34.3 31.0 - 36.0 g/dl [facility] Red Cell Distribution Width 12.6 11.0 - 16.0 % [facility] Platelet Count 196 160 - 400 X10*3/uL [facility] Mean Platelet Volume 12.0 9.4 - 12.4 fL [facility] Neutrophils Percent Auto 73.6(H) 45 - 73 % [facility] Imm Gran Pct Auto 0.3 0.0 - 0.4 % [facility] Lymphocytes Percent Auto 17.8(L) 20 - 40 % [facility] Monocytes Percent Auto 7.6 2 - 11 % [facility] Eosinophils Percent Auto 0.3 0 - 4 % [facility] Basophils Percent Auto 0.4 0 - 2 % [facility] NRBC Pct Auto 0.0 0.0 - 0.2 /100WBC [facility] Neutrophils Absolute Auto 7.0 2.0 - 8.3 x10*3/uL [facility] Imm Gran Abs Auto 0.03 0.00 - 0.03 X10*3/uL [facility] Lymphocytes Absolute Auto 1.7 1.2 - 4.9 X10*3/uL [facility] Monocytes Absolute Auto 0.7 0.1 - 1.2 X10*3/uL [facility] Eosinophils Absolute Auto 0.0 0.0 - 0.4 X10*3/uL [facility] Basophils Absolute Auto 0.0 0.0 - 0.2 X10*3/uL [facility] NRBC Abs Auto 0.000 0.0 - 0.012 X10*3/uL [facility] 04/18/2024 9:58 PM EST 04/18/2024 10:01 PM EST us Generic External Data Provider LAB BLOOD ORDERAB LES Final Result [facility] [address] [place] [phone] from Last 3 Months Insurance [employer] C3 Care Teams High School Physical Education Teacher Relationship Specialty Start Date End Date Consuelo Shannon ANP [address] [place] [phone] PCP - General Family Medicine 10/25/21
--- OUTSIDE RECORDS SUMMARY | 2024-05-16 20:27 | XMS_ITS | Encounter Summary ---
Author Organization [employer] Address [address] [place] [address] Care Team Providers Care Soils Engineer Name Role Phone Consuelo Shannon Primary Care Provider [phone] Reason for Visit * Reason Comments Pre-visit Planning SDOH Screening negat kortney and Tobacco screening negative Encounter Details Date Type Department Care Team ([facility] st Contact Info) Description 05/05/2024 Patient Outreach [facility] [address] [place] [address] Consuelo Shannon ANP [address] [place] [address] Pre-visit Planning (SDOH Screening negative and Tobacco screening negative) Social History Tobacco Use Types Packs/Day Years [...] off services in your home? No 12/27/2023 Internet Access Answer Date Recorded Internet Access Q1 Yes 05/05/2024 Internet Access Q2 Not on file 05/05/2024 Sex and Gender Information Value Date Recorded Sex Assigned at Male 12/25/2021 10:14 AM EDT Legal Sex Male 10:14 AM EDT Gender Identity Male 12/25/2021 10:14 AM EDT Sexual Orientation Don't know 12/25/2021 10 :14 AM EDT documented as of this encounter Progress Notes * Lily Segura - 05/05/2024 10:37 AM EDT CC Lily Keene placed successful outbound call to patient for pre-visit planning. Patient name and confirmed. Patient confirms appt date and time, and has transportation arrangements. Biggest concern for appointment at this time is left shoulder concerns. Patient advised to bring to appointment aphoto id and insurance card. Appropriate screenings completed in anticipation of appointment. documented in this encounter Plan of Treatment Upcoming Encounters Date Type Department Care Team (Late st Contact Info) Description 08/14/2024 2:15 PM EDT Office Visit [facility] [address] [place] [address] Consuelo Shannon ANP [address] [place] [address] documented as of this encounter Visit Diagnoses Not on filedocumented in this encounter Care Teams Soils Engineer Relationship Specialty Start Date End Date Consuelo Shannon ANP [address] [place] [phone] PCP - General Family Medicine 10/25/21 documented as of this encounter
--- OUTSIDE RECORDS SUMMARY | 2024-05-16 20:27 | XMS_ITS | Encounter Summary ---
Author Organization [employer] Address [address] [facility] 7t [place] [address] Care Team Providers Care [place] Nurse Name Role Phone Consuelo Shannon Primary Care Provider [phone] Reason for Visit * Reason Onset Date Comments Med Refill 05/01/2022 Encounter Details Date Type Department Care Team ([facility] st Contact Info) Description 05/01/2022 Telephone [facility] [address] [place] [address] Consuelo Shannon ANP [address] [place] [address] Med Refill Social History Tobacco Use Types [...] 9:50 AM EST Medication was sent to [id number] on 01/08/22 Qty: 90 with 1 refill. * Telephone Encounter - Arnaldo Nguyen - 05/01/2022 9:39 AM EST Tc from pt requesting med refill Valacyclovir 1 gram tablet documented in this encounter Plan of Treatment Upcoming Encounters Date Type Department Care Team (Late st Contact Info) Description 08/14/2024 2:15 PM EDT Office Visit [facility] [address] [place] [address] Consuelo Shannon ANP [address] [place] [address] documented as of this encounter Visit Diagnoses Not on filedocumented in this encounter Care Teams County Nurse Relationship Specialty Start Date End Date Consuelo Shannon ANP [address] [place] [phone] PCP - General Family Medicine 10/25/21 documented as of this encounter
--- OUTSIDE RECORDS SUMMARY | 2024-05-16 20:27 | XMS_ITS | Encounter Summary ---
Author Organization [employer] Address [address] [facility] 7t [place] [address] Care Team Providers Care Extrusion Supervisor Name Role Phone Consuelo Shannon Primary Care Provider [phone] Reason for Visit * Reason Comments Med Refill Encounter Details Date Type Department Care Team (Late st Contact Info) Description 11/24/2023 Refill [facility] [address] [place] [address] Consuelo Shannon ANP [address] [place] [address] Social History Tobacco Use Types Packs/Day Years [...] Marlena Barraza regarding Pt medicaid insurance. When story writer runs the information for insurance it shows as rejected. Medicaid # is [id number]. Pt information given and awaiting update. documented in this encounter Plan of Treatment Upcoming Encounters Date Type Department Care Team (Late st Contact Info) Description 08/14/2024 2:15 PM EDT Office Visit [facility] [address] [place] [address] Consuelo Shannon ANP [address] [place] [address] documented as of this encounter Visit Diagnoses Not on filedocumented in this encounter Care Teams Extrusion Supervisor Relationship Specialty Start Date End Date Consuelo Shannon ANP [address] [place] [address] PCP - General Family Medicine 10/25/21 documented as of this encounter
--- OUTSIDE RECORDS SUMMARY | 2024-05-16 20:28 | XMS_ITS | Encounter Summary ---
Author Organization [email or web address] Address [address] [facility] 7t [place] [address] Care Team Providers Care Paper Machine Tender Name Role Phone Consuelo Shannon Primary Care Provider [phone] Reason for Visit * Reason Comments Care Coordination CM/CHW outreach Encounter Details Date Type Department Care Team (Latest Contact Info) Description 04/20/2024 Patient Outreach [facility] [address] [place] [address] Consuelo Shannon ANP [address] [place] [address] Care Coordination (CM/CHW outreach) Social History Tobacco [...] this time. CHW LVM introducing herself from [facility] CMDepartment with CHW's name, department and direct contact number requesting call back. Will re-attempt to contact within 5 days. and address not confirmed. documented in this encounter Plan of Treatment Upcoming Encounters Date Type Department Care Team (Late st Contact Info) Description 08/14/2024 2:15 PM EDT Office Visit [facility] [address] [place] [address] Consuelo Shannon ANP [address] [place] [address] documented as of this encounter Visit Diagnoses Not on filedocumented in this encounter Care Teams Paper Machine Tender Relationship Specialty Start Date End Date Consuelo Shannon ANP [address] [place] [phone] PCP - General Family Medicine 10/25/21 documented as of this encounter
--- OUTSIDE RECORDS SUMMARY | 2024-05-16 20:28 | XMS_ITS | Encounter Summary ---
Author Organization [employer] Address [address] [facility] 7t [place] [address] Care Team Providers Care Process Control Operator Name Role Phone Consuelo Shannon Primary Care Provider [phone] Reason for Visit * Reason Onset Date Comments Care Management 04/20/2024 [facility]- chart revi ew Encounter Details Date Type Department Care Team ([facility] Contact Info) Description 04/20/[address] [facility] [address] [place] [address] Consuelo Shannon ANP [address] [place] [address] Care Management (C3CM- chart review) Social History [...] the past 12 months, has t he [employer] games, gas, oil or water [employer] threatened to shut off services in your [...] pilaris, and hernia repair (01/17/24). Specialists include [facility] (right knee), [facility], and [facility] General Surgeons. ED visits within the last 12 months include [facility] 04/18/24 Dx polysubstance abuse and [facility] ED 01/01/24. Last appointment in PCP office on 12/27/23. Nofuture appointments scheduled at this time. documented in this encounter Plan of Treatment Upcoming Encounters Date Type Department Care Team (Late st Contact Info) Description 08/14/2024 2:15 PM EDT Office Visit [facility] [address] [place] [address] Consuelo Shannon ANP [address] [place] [address] documented as of this encounter Visit Diagnoses Not on filedocumented in this encounter Care Teams Process Control Operator Relationship Specialty Start Date End Date Consuelo Shannon ANP [address] [place] [address] PCP - General Family Medicine 10/25/21 documented as of this encounter
--- OUTSIDE RECORDS SUMMARY | 2024-05-16 20:28 | XMS_ITS | Encounter Summary ---
Author Organization [employer] Address [address] [facility] 7t [place] [address] Care Team Providers Care Special Collections Librarian Name Role Phone Consuelo Shannon Primary Care Provider [phone] Reason for Visit * Reason Comments Care Coordination CM/CHW outreach Encounter Details Date Type Department Care Team (Latest Contact Info) Description 04/24/2024 Patient Outreach [facility] [address] [place] [address] Consuelo Shannon ANP [address] [place] [address] Care Coordination (CM/CHW outreach) Social History Tobacco [...] encounter Progress Notes * Zoey Ibarra - 04/24/2024 1:06 PM EST CHW Zoey Ibarra placed call with patient to introduce they care management program, after explaining patient is not sure if he would like to do the program. Patient would like an appt with PCP to discuss concerns with shoulder, stated he does not have pain but shoulder has a popping noise constantly. Patient was referred to PT and stated he does not want to do until he gets an MRI done. Patient was also seen in the ED at [facility] on 04/19/24 for another health issue not concerning the shoulder. Please call patient to clarify. * Shamika Fuller RN - 04/24/2024 1:06 PM EST Pt seen at [facility] ED 04/18 for Dx: PCP abuse. Per ED summary, he used PCP and his mother kicked him out of the house and called the police stating he can't come back until he is clean. Telephone call placed to pt who is agreeable to appt with PCP to discuss ED visit and how his left shoulder is still popping . Would like imaging for this. Shoulder not worse but also has not improved. Refusing PT. Booked for 04/30/24 with PCP. ED note available on [facility]. Advised to call ifhe needs anything prior to appt or come to [facility]. Pt verbalized understanding and denied having any further questions or concerns at this time. documented in this encounter Plan of Treatment Upcoming Encounters Date Type Department Care Team (Late st Contact Info) Description 08/14/2024 2:15 PM EDT Office Visit [address] [address] Consuelo Shannon ANP [address] [place] [address] documented as of this encounter Visit Diagnoses Not on filedocumented in this encounter Care Teams Special Collections Librarian Relationship Specialty Start Date End Date Consuelo Shannon ANP [address] [place] [address] PCP - General Family Medicine 10/25/21 documented as of this encounter
--- OUTSIDE RECORDS SUMMARY | 2024-05-16 20:28 | XMS_ITS | Encounter Summary ---
Author Organization [employer] Address [address] [facility] [address] [place] [address] Care Team Providers Care Bit Shaver Name Role Phone Consuelo Shannon Primary Care Provider [phone] Encounter Details Date Type Department Care Team ([facility] Contact Info) Description 04/18/2024 Orders Only GENERIC [...] Description 08/14/2024 2:15 PM EDT Office Visit [facility] [address] [facility] [place] [address] Consuelo Shannon ANP [address] [place] [address] documented as of this encounter Procedures Procedure Name Priority Date/Time Associated Diagnosis Comments CBC WITH AUTO DIFFERENTIAL Routine 04/18/2024 9:58 PM EST documented in this encounter Results * (ABNORMAL) CBC auto differential (04/18/2024 9:58 PM EST) White Blood Count 9.6 4.8 - 10.8 X10*3/uL [facility] Red Blood Count 4.71 4.60 - 5.80 X10*6/uL [facility] Hemoglobin 14.8 14.0 - 18.0 g/dl [facility] Hematocrit 43.1 42.0 - 52.0 % [facility] Mean Corpuscular Volume 91.5 80.0 - 98.0 fL [facility] Mean Corpuscular Hemoglobin 31.4 27.0 - 33.0 pg [facility] Mean Corpuscular HGB Conc 34.3 31.0 - 36.0 g/dl [facility] Red Cell Distribution Width 12.6 11.0 - 16.0 % [facility] Platelet Count 196 160 - 400 X10*3/uL [facility] Mean Platelet Volume 12.0 9.4 - 12.4 fL [facility] Neutrophils Percent Auto 73.6(H) 45 - 73 % [facility] Imm Gran Pct Auto 0.3 0.0 - 0.4 % [facility] Lymphocytes Percent Auto 17.8(L) 20 - 40 % [facility] Monocytes Percent Auto 7.6 2 - 11 % [facility] Eosinophils Percent Auto 0.3 0 - 4 % [facility] Basophils Percent Auto 0.4 0 - 2 % [facility] NRBC Pct Auto 0.0 0.0 - 0.2 /100WBC [facility] Neutrophils Absolute Auto 7.0 2.0 - 8.3 x10*3/uL [facility] Imm Gran Abs Auto 0.03 0.00 - 0.03 X10*3/uL [facility] Lymphocytes Absolute Auto 1.7 1.2 - 4.9 X10*3/uL [facility] Monocytes Absolute Auto 0.7 0.1 - 1.2 X10*3/uL [facility] Eosinophils Absolute Auto 0.0 0.0 - 0.4 X10*3/uL [facility] Basophils Absolute Auto 0.0 0.0 - 0.2 X10*3/uL [facility] NRBC Abs Auto 0.000 0.0 - 0.012 X10*3/uL [facility] 04/18/2024 9:58 PM EST 04/18/2024 10:01 PM EST us Generic External Data Provider LAB BLOOD ORDERAB LES Final Result Performing Organization Address City/State/[facility] Co de Phone Number [facility] [address] [place] [address] [phone] documented in this encounter Visit Diagnoses Not on filedocumented in this encounter Care Teams Bit Shaver Relationship Specialty Start Date End Date Consuelo Shannon ANP [address] [place] [phone] PCP - General Family Medicine 10/25/21 documented as of this encounter
== END 2024-05-16 20:26 | disposition home or self-care (01) ==
LOC: HO.MRI 20:25
PROVIDERS: PCP Nurse Practitioner Primary Care; Visit Provider Nurse Practitioner Primary Care
DX: M24.212 Disorder of ligament, left shoulder (principal)
CPT/HCPCS: 73221

== ENCOUNTER → 2024-05-16 20:28 | Outpatient (BNV) | payer MEDICAID, SELFPAY | PROVIDERS: PCP Nurse Practitioner Primary Care; Visit Provider Radiology Diagnostic Radiology | DX: M24.212 Disorder of ligament, left shoulder (principal); M25.512 Pain in left shoulder | CPT/HCPCS: 73221 ==

== ENCOUNTER 2024-05-25 18:39 | Outpatient (REF) | payer MEDICAID, SELFPAY ==
--- OUTSIDE RECORDS SUMMARY | 2024-05-25 18:41 | XMS_ITS | Encounter Summary ---
Author Organization [employer] Address [address] [facility] 7t [place] [address] Care Team Providers Care Mig Tig Welder Name Role Phone Consuelo Shannon Primary Care Provider [phone] Reason for Visit * Reason Onset Date Comments Med Refill 05/01/2022 Encounter Details Date Type Department Care Team ([facility] st Contact Info) Description 05/01/2022 Telephone [facility] MEDICINE [address] [place] [address] Consuelo Shannon ANP [address] [place] [address] Med Refill Social History Tobacco Use Types [...] 9:50 AM EST Medication was sent to [id number] on 01/08/22 Qty: 90 with 1 refill. * Telephone Encounter - Arnaldo Nguyen - 05/01/2022 9:39 AM EST Tc from pt requesting med refill Valacyclovir 1 gram tablet documented in this encounter Plan of Treatment Upcoming Encounters Date Type Department Care Team (Late st Contact Info) Description 08/14/2024 2:15 PM EDT Office Visit [facility] MEDICINE [address] [place] [address] Consuelo Shannon ANP [address] [place] [address] documented as of this encounter Visit Diagnoses Not on filedocumented in this encounter Care Teams Mig Tig Welder Relationship Specialty Start Date End Date Consuelo Shannon ANP [address] [place] [phone] PCP - General Family Medicine 10/25/21 documented as of this encounter
--- OUTSIDE RECORDS SUMMARY | 2024-05-25 18:41 | XMS_ITS | Clinical Summary ---
Author Organization [employer] Address [address] [facility] [address] [place] [address] Care Team Providers Care Provisioning Specialist Name Role Phone Consuelo Shannon Primary Care Provider [phone] Allergies Active Allergy Reactions Criticality Noted Date [...] nt, sequela 12/23/2023 Overview (12/23/2023): Seen at [facility], on 2018 sp PEA + [...] (12/23/2023 12:00 PM EDT): Back on 2017, [facility] reviewed. Due to PEA and [...] Department Care Team Description 05/13/[address] [address] Consuelo Shannon ANP Male pattern alopecia 05/13/[address] [address] Lorena Ramos RN Results 05/12/2024 1:00 PM EDT Office Visit [address] [address] Consuelo Shannon ANP Ligamentous laxity of left shoulder (Primary Dx); Hair loss; Herpetic infection of penis 05/12/2024 Travel 05/05/2024 Patient Outreach [address] [address] Consuelo Shannon ANP Pre-visit Planning (SDOH Screening negative and Tobacco screening negative) 04/24/2024 Patient Outreach [address] [address] Consuelo Shannon ANP Care Coordination (CM/CHW outreach) 04/20/2024 Patient Outreach [address] [address] Consuelo Shannon ANP Care Coordination (CM/CHW outreach) 04/20/[address] [address] Consuelo Shannon ANP Care Management (C3CM- chart [...] MMR 02/10/2003,03/17/1998 Meningococcal MCV4P [id number]-135 10/26/2014,03/13/19 13 OPV, Trivalent 09/07/1998 Tdap 11/28/2010 Varicella 08/15/2007,1997 Social History [...] Description 08/14/2024 2:15 PM EDT Office Visit [facility] MEDICINE [address] [place], [place] [phone] Consuelo Shannon ANP [address] [place] [address] Health Maintenance Due Date Last Done Comments Alcohol/Substance Use Screening 2009 Family Planning (PISQ) 2012 Pneumococcal Vaccine: Pediatrics (0 to 5 Years) and At-Risk Patients (6 to 49) Years) (1 of 2 - PCV) 2016 DTaP/Tdap/Td Vaccines (6 - Td or Tdap) 11/28/2020 11/28/2010, 02/11/2000, 06/16/1998, Additional history exists COVID-19 Vaccine (2023- season) 2023 Depression Screening 05/12/2025 05/12/2024, 03/18/20 [...] W/Reflex to FT4 (05/12/2024 3:04 PM EDT) [facility] TSH reflex Free T4 1.82 0.32 - 4.0 uIU/mL [facility] Blood Venous blood specimen / Unknown 05/12/2024 3:04 PM EDT 05/12/2024 4:45 PM EDT Consuelo Shannon [facility] LAB BLOOD ORDERABLES Final Resul t Performing Organization Address [facility] Co de Phone Number [facility] [address] [place] [phone] * Hepatitis C Antibody with Reflex to HCV, RNA, Quantitative, Real-Time PCR (05/12/2024 3:04 PM EDT) [facility] Hepatitis C Antibody Nonreactive Nonreactive [facility] Comment:Antibodies to HCV no t detected; does not exclude early acuteHCV infection. Blood Venous blood specimen / Unknown 05/12/2024 3:04 PM EDT 05/12/2024 4:45 PM EDT Consuelo BLANK LAB BLOOD ORDERABLES Final Resul t Performing Organization Address [facility] Co de Phone Number [facility] [address] [place] [phone] * Chlamydia/N. Gonorrhoeae RNA, TMA, Urogenitial (05/12/2024 3:04 PM EDT) [facility] CT PCR NOT DETECTED Not Detect. [facility] Comment:A not detected test result [...] psychologicalconsequences. NG PCR NOT DETECTED Not Detect. [facility] Comment:A not detected test result [...] PM EDT 05/12/2024 4:26 PM EDT Narrative [facility] - 05/13/2024 3:47 AM EDT Urine Consuelo [facility] [place] LAB MICROBIOLOGY - GENERAL ORDER GLENNA Final Result [facility] [address] [place] [address] [phone] * RPR (Monitor) with Reflex to??Titer (05/12/2024 3:04 PM EDT) RPR (Monitor) w/Refl Titer NON-REACTI VE NON-REACT GATO [facility] Comment:THIS TEST WAS PERFOR MED AT:[facility] [place] [phone] BSUBY MD Rapid Plasma Reagin Ab Titer TNP [facility] Blood Venous blood specimen / Unknown 05/12/2024 3:04 PM EDT 05/12/2024 4:45 PM EDT Consuelo Shannon ANP LAB BLOOD ORDERABLES Final Resul t Performing Organization Address [facility] Co de Phone Number [facility] [address] [place] [address] [phone] * HIV-1/2 Antigen and Antibodies, Fourth Generation, with Reflexes (05/12/2024 3:04 PM EDT) Pathologist [facility] HIV AB/AG Nonreactive Nonreactive [facility] Comment:HIV-1 p24 Ag and/or HIV-1/HIV-2 Ab not detected.A test result that is nonreactive does not exclude thepossibility of exposure to or infection with HIV-1 and/orHIV-2. Nonreactive results in this assay for individualswith prior exposure to HIV-1 and/or HIV-2 may be due toantigen and antibody levels that are below the limit ofdetection of this assay.The Pan[employer] HIV Ag/Ab Combo assay result andsupplemental assay results should be interpreted inconjunction with the patient's clinical presentation,history and other laboratory results. If the results areinconsistent with clinical evidence, additional testing issuggested to confirm the result. Blood Venous blood specimen / Unknown 05/12/2024 3:04 PM EDT 05/12/2024 4:45 PM EDT us Consuelo Shannon ANP LAB BLOOD ORDERABLES Final Resul t Performing Organization Address [facility]/ZIP Co de Phone Number [facility] [address] [place] [address] [phone] * (ABNORMAL) CBC auto differential (04/18/2024 9:58 PM EST) White Blood Count 9.6 4.8 - 10.8 X10*3/uL [facility] Red Blood Count 4.71 4.60 - 5.80 X10*6/uL [facility] Hemoglobin 14.8 14.0 - 18.0 g/dl [facility] Hematocrit 43.1 42.0 - 52.0 % [facility] Mean Corpuscular Volume 91.5 80.0 - 98.0 fL [facility] Mean Corpuscular Hemoglobin 31.4 27.0 - 33.0 pg [facility] Mean Corpuscular HGB Conc 34.3 31.0 - 36.0 g/dl [facility] Red Cell Distribution Width 12.6 11.0 - 16.0 % [facility] Platelet Count 196 160 - 400 X10*3/uL [facility] Mean Platelet Volume 12.0 9.4 - 12.4 fL [facility] Neutrophils Percent Auto 73.6(H) 45 - 73 % [facility] Imm Gran Pct Auto 0.3 0.0 - 0.4 % [facility] Lymphocytes Percent Auto 17.8(L) 20 - 40 % [facility] Monocytes Percent Auto 7.6 2 - 11 % [facility] Eosinophils Percent Auto 0.3 0 - 4 % [facility] Basophils Percent Auto 0.4 0 - 2 % [facility] NRBC Pct Auto 0.0 0.0 - 0.2 /100WBC [facility] Neutrophils Absolute Auto 7.0 2.0 - 8.3 x10*3/uL [facility] Imm Gran Abs Auto 0.03 0.00 - 0.03 X10*3/uL [facility] Lymphocytes Absolute Auto 1.7 1.2 - 4.9 X10*3/uL [facility] Monocytes Absolute Auto 0.7 0.1 - 1.2 X10*3/uL [facility] Eosinophils Absolute Auto 0.0 0.0 - 0.4 X10*3/uL [facility] Basophils Absolute Auto 0.0 0.0 - 0.2 X10*3/uL [facility] NRBC Abs Auto 0.000 0.0 - 0.012 X10*3/uL [facility] 04/18/2024 9:58 PM EST 04/18/2024 10:01 PM EST us Generic External Data Provider LAB BLOOD ORDERAB LES Final Result [facility] [address] [place] [address] [phone] from Last 3 Months Insurance [employer] Care Teams Provisioning Specialist Relationship Specialty Start Date End Date Consuelo Shannon ANP [address] [place] [phone] PCP - General Family Medicine 10/25/21
--- OUTSIDE RECORDS SUMMARY | 2024-05-25 18:41 | XMS_ITS | Encounter Summary ---
Author Organization [employer] Address [address] [facility] 7t [place] [address] Care Team Providers Care Furnace Builder Name Role Phone Consuelo Shannon Primary Care Provider [phone] Reason for Visit * Reason Comments Med Refill Encounter Details Date Type Department Care Team (Late st Contact Info) Description 11/24/2023 Refill [facility] MEDICINE [address] [place] [phone] Consuelo Shannon ANP [address] [place] [phone] Social History Tobacco Use Types Packs/Day Years [...] Marlena Barraza regarding Pt medicaid insurance. When news writer runs the information for insurance it shows as rejected. Medicaid # is [id number]. Pt information given and awaiting update. documented in this encounter Plan of Treatment Upcoming Encounters Date Type Department Care Team (Late st Contact Info) Description 08/14/2024 2:15 PM EDT Office Visit [facility] MED[facility] [address] [place] [phone] Consuelo Shannon ANP [address] [place] [address] documented as of this encounter Visit Diagnoses Not on filedocumented in this encounter Care Teams Furnace Builder Relationship Specialty Start Date End Date Consuelo Shannon ANP [address] [place] [address] PCP - General Family Medicine 10/25/21 documented as of this encounter
== END 2024-05-25 18:40 | disposition home or self-care (01) ==
LOC: HO.MRI 18:39
PROVIDERS: PCP Nurse Practitioner Primary Care; Visit Provider Nurse Practitioner Primary Care
DX: Z13.89 Encounter for screening for other disorder (principal)
CPT/HCPCS: 73221